=== PATIENT | female | born 1955 | race Caucasian/White ===

== ENCOUNTER → 2017-03-10 | Outpatient (CLI) | payer MEDICARE, MEDICAID ==
[~2017-03-10] MED LIST: CLON0.5T; CYAN100L; CYANOCOBALAMIN (B-12) 1000 MCG/1 ML VIAL IM ONE; CYANOCOBALAMIN (B-12) 1000 MCG/1 ML VIAL ONE; FENT100D11; FURO20TA; LISI-275; MET25T OR; POTA8CAP6; SERT-138
[2017-03-10 09:30] VITALS: BP 103/55
[2017-03-10 10:00] VITALS: BP 98/53
== END | disposition home or self-care (01) ==
LOC: CHF HDHVI 09:19
PROVIDERS: ATTEND Internal Medicine Cardiovascular Disease
DX: I50.9 Heart failure, unspecified (principal); I27.0 Primary pulmonary hypertension; D64.9 Anemia, unspecified
CPT/HCPCS: 96372; G0463; J3420

== ENCOUNTER → 2018-02-19 | Outpatient (CLI) | payer MEDICAID, MEDICARE ==
[~2018-02-19] MED LIST changes: -CYANOCOBALAMIN (B-12) 1000 MCG/1 ML VIAL IM ONE; -CYANOCOBALAMIN (B-12) 1000 MCG/1 ML VIAL ONE
== END | disposition home or self-care (01) ==
LOC: Rad HDHVI 11:08
PROVIDERS: ATTEND Internal Medicine Cardiovascular Disease
DX: J44.9 Chronic obstructive pulmonary disease, unspecified (principal)
CPT/HCPCS: 71046

== ENCOUNTER → 2018-03-30 | Outpatient (CLI) | payer MEDICARE ==
[2018-03-30 14:15] VITALS: BP 148/58
[2018-03-30 15:45] VITALS: BP 126/51
[2018-03-31 12:02] LABS: Basophils # (auto) 0.1 uL; Basophils % (auto) 0.9 % (0.0-2.0); Eosinophils # (auto) 0.1 uL; Eosinophils % (auto) 0.9 % (0.0-7.0); Lymphocytes # (auto) 2.4 uL; Lymphocytes % (auto) 19.3 % (10.0-50.0); Mean Corpuscular Hemoglobin 30.6 pg (28.0-32.0); Mean Corpuscular Hgb Conc. 33.2 g/dL (32.0-36.0); Mean Corpuscular Volume 92.1 fL (80.0-100.0); Monocytes # (auto) 0.8 uL; Monocytes % (auto) 6.2 % (0.0-12.0); Neutrophils # (auto) 9.2 uL; Neutrophils % (auto) 72.7 % (37.0-80.0); Nucleated Red Blood Cells % 0.1 %; Platelet Count (auto) 293 10^3/uL (140-450); Red Blood Cells 3.92 10^6/uL (4.0-5.20); Red Cell Distribution Width 12.3 % (11.8-14.3); White Blood Cell 12.6 10^3/uL (4.4-10.8)
[2018-03-31 12:38] LABS: Albumin 3.4 g/dL (3.4-5.0); BUN/Creatinine Ratio 16.7; Bilirubin, Total 0.2 mg/dL (0.2-1.0); Calcium 9.8 mg/dL (8.5-10.1); Magnesium 2.2 mg/dL (1.6-2.6); Potassium 4.3 mmol/L (3.5-5.1); Total Protein 7.4 g/dL (6.4-8.2)
== END | disposition home or self-care (01) ==
LOC: CHF HDHVI 14:25
PROVIDERS: ATTEND Internal Medicine Cardiovascular Disease
DX: E78.5 Hyperlipidemia, unspecified (principal); D64.9 Anemia, unspecified; E11.9 Type 2 diabetes mellitus without complications; I10 Essential (primary) hypertension; E55.9 Vitamin D deficiency, unspecified; D51.9 Vitamin B12 deficiency anemia, unspecified; J44.9 Chronic obstructive pulmonary disease, unspecified; Z79.899 Other long term (current) drug therapy
CPT/HCPCS: 36415; 80053; 82306; 82607; 83036; 83735; 85025; 93701; 94618; G0463

== ENCOUNTER 2018-09-17 18:42 | Emergency (ER) | payer MEDICARE ==
[~2018-09-17] VITALS: Ht 154.9 cm; Wt 77.1 kg
[2018-09-17 18:52] VITALS: BP 120/51
[2018-09-18] MEDS ORDERED: DEXAMETHASONE SOD PHOS 10MG/1ML VIAL INJ IM ONE (00:45)
[2018-09-18] MEDS ORDERED: MEPERIDINE HCL (50 MG/ML) 1 ML VIAL IM ONE ×2 (00:45)
== END 2018-09-18 01:22 | disposition home or self-care (01) ==
LOC: EDBD 18:42 → ER 18:56
DX: M22.3X2 Other derangements of patella, left knee (principal); M13.811 Other specified arthritis, right shoulder; J44.9 Chronic obstructive pulmonary disease, unspecified; F17.210 Nicotine dependence, cigarettes, uncomplicated; Z88.8 Allergy status to other drugs, medicaments and biological substances; Z88.0 Allergy status to penicillin; Z88.2 Allergy status to sulfonamides; Z88.7 Allergy status to serum and vaccine; Z79.899 Other long term (current) drug therapy; Z90.49 Acquired absence of other specified parts of digestive tract; W01.0XXA Fall on same level from slipping, tripping and stumbling without subsequent striking against object, initial encounter; Y93.89 Activity, other specified; Y99.8 Other external cause status; Y92.89 Other specified places as the place of occurrence of the external cause
CPT/HCPCS: 73030; 73562; 96372; 99284; J1100; J2175; L3260

== ENCOUNTER → 2018-10-19 | Outpatient (CLI) | payer MEDICARE | END | disposition home or self-care (01) | LOC: Rad HDHVI 12:22 | PROVIDERS: ATTEND Internal Medicine Cardiovascular Disease | DX: M47.894 Other spondylosis, thoracic region (principal); M40.294 Other kyphosis, thoracic region; M12.88 Other specific arthropathies, not elsewhere classified, other specified site | CPT/HCPCS: 72040; 72070 ==

== ENCOUNTER 2018-12-10 16:13 | Inpatient (IN) | payer MEDICARE ==
[~2018-12-10] VITALS: Ht 152.4 cm; Wt 88.2 kg
[2018-12-10] MEDS ORDERED: SODIUM CHLORIDE 0.9% 500 ML IV ONE (16:35)
[2018-12-10] MEDS ORDERED: MORPHINE SULFATE 4 MG/ML SYR/VIAL IV ONE ×2 (16:45→20:45)
[2018-12-10] MEDS ORDERED: ONDANSETRON HCL 4 MG/2 ML VIAL IV ONE ×2 (16:45→20:45)
[2018-12-10] MEDS ORDERED: KETOROLAC TROMETH 30 MG/ML 1ML VIAL IV ONE (17:30)
[2018-12-10 17:56] LABS: Basophils # (auto) 0.1 uL; Basophils % (auto) 0.9 % (0.0-2.0); Eosinophils # (auto) 0.1 uL; Hematocrit 35.5 % (36.0-46.0); Hemoglobin 11.5 g/dL (12.2-16.2); Lymphocytes # (auto) 2.3 uL; Lymphocytes % (auto) 18.3 % (10.0-50.0); Mean Corpuscular Hemoglobin 29.2 pg (28.0-32.0); Mean Corpuscular Hgb Conc. 32.5 g/dL (32.0-36.0); Mean Corpuscular Volume 89.9 fL (80.0-100.0); Monocytes # (auto) 0.8 uL; Monocytes % (auto) 6.4 % (0.0-12.0); Neutrophils # (auto) 9.3 uL; Neutrophils % (auto) 73.4 % (37.0-80.0); Platelet Count (auto) 286 10^3/uL (140-450); Red Blood Cells 3.95 10^6/uL (4.0-5.20); Red Cell Distribution Width 13.1 % (11.8-14.3); White Blood Cell 12.7 10^3/uL (4.4-10.8)
[2018-12-10 18:14] LABS: Alanine Aminotransferase 19 U/L (13-56); Albumin 2.6 g/dL (3.4-5.0); Anion Gap 9 (5-15); Aspartate Aminotransferase 12 U/L (15-37); BUN/Creatinine Ratio 24.1; Blood Urea Nitrogen 35 mg/dL (7-18); Calcium 7.7 mg/dL (8.5-10.1); Carbon Dioxide 23 mmol/L (21-32); Chloride 99 mmol/L (98-107); GFR African American 47 mL/min; GFR Non-African American 39 mL/min; Magnesium 2.2 mg/dL (1.6-2.6); Potassium 4.4 mmol/L (3.5-5.1); Sodium 131 mmol/L (136-145)
[2018-12-10 18:19] LABS: Alkaline Phosphatase 105 U/L (45-117); Bilirubin, Total 0.2 mg/dL (0.2-1.0); Total Protein 6.4 g/dL (6.4-8.2)
[2018-12-10 18:26] LABS: Glucose 492 mg/dL (74-106)
[2018-12-10] MEDS ORDERED: MORPHINE SULFATE 4 MG/ML SYR/VIAL IV PRN (20:45)
[2018-12-10] MEDS ORDERED: ACETAMINOPHEN 325 MG TAB PO PRN (20:45)
[2018-12-10] MEDS ORDERED: ONDANSETRON HCL 4 MG/2 ML VIAL IV PRN (20:45)
[2018-12-10] MEDS ORDERED: DEXTROSE (50%) 50ML SYRG IV PRN (20:45)
[2018-12-10 21:11] LABS: Urine Bacteria NONE SEEN /hpf (None Seen); Urine Blood Negative /uL (Negative); Urine Specific Gravity 1.014 (1.001-1.035); Urine WBC 1 /hpf (0 - 5)
[2018-12-10] MEDS: SODIUM CHLORIDE 0.9% 1,000 ML IV SCH (21:33)
[2018-12-10] MEDS: METOPROLOL TARTRATE 50 MG TAB PO SCH (22:42)
[2018-12-10] MEDS: TOPIRAMATE 25 MG TAB PO SCH (22:43)
[2018-12-10] MEDS: HYDROcodone-ACET 5/325MG TAB PO PRN (22:45)
[2018-12-10 23:00] VITALS: BP 134/69
[2018-12-10] MEDS: ACCU-CHEK COMFORT CURVE STRIP VI SCH (23:29)
[2018-12-10] MEDS: InsuLIN REG 1unit/0.01ml Soln (100units/ml) SC SCH (23:42)
--- NOTE | 2018-12-10 23:47 | NUR ---
received patient from the ed at 1120 for uncontrolled diabetes. blood sugar acu-check resulted in a blood sugar level of 485. a recheck of sugar resulted in 503. 10 units of insulin given and hospital list paged for orders
[2018-12-11 00:06] VITALS: BP 134/69
--- NOTE | 2018-12-11 00:45 | NUR ---
HOSPITAL LIST RESPONDED TO EARLIER PAGE FOR CRITICAL VALUE OF GLUCOSE LEVEL WITH THE STATEMENT TO FOLLOW THE PROTOCOL WHICH INCLUDED INFORMING HIM OF BLOOD SUGAR RESULTS. NO KNEW ORDERS GIVEN
[2018-12-11] MEDS ORDERED: MORP15TA PO (01:57)
[2018-12-11] MEDS ORDERED: GABA300C10 PO (01:57)
[2018-12-11] MEDS ORDERED: ENA10T PO (01:57)
[2018-12-11] MEDS: HYDROcodone-ACET 5/325MG TAB PO PRN ×4 (02:45→20:23)
[2018-12-11] MEDS ORDERED: ALBUAER3 IN (02:49)
[2018-12-11] MEDS: TEMAZEPAM 15 MG CAP PO PRN (02:57)
[2018-12-11] MEDS: ACCU-CHEK COMFORT CURVE STRIP VI SCH ×5 (04:15→20:37)
[2018-12-11] MEDS: InsuLIN REG 1unit/0.01ml Soln (100units/ml) SC SCH ×5 (04:16→20:45)
[2018-12-11 05:00] VITALS: BP 93/52
[2018-12-11 06:30] LABS: Basophils # (auto) 0.1 uL; Basophils % (auto) 0.7 % (0.0-2.0); Eosinophils # (auto) 0.2 uL; Eosinophils % (auto) 1.8 % (0.0-7.0); Hematocrit 34.1 % (36.0-46.0); Hemoglobin 11.6 g/dL (12.2-16.2); Lymphocytes # (auto) 2.5 uL; Lymphocytes % (auto) 28.9 % (10.0-50.0); Mean Corpuscular Hemoglobin 30.5 pg (28.0-32.0); Mean Corpuscular Hgb Conc. 33.9 g/dL (32.0-36.0); Mean Corpuscular Volume 90.1 fL (80.0-100.0); Monocytes # (auto) 0.8 uL; Monocytes % (auto) 9.2 % (0.0-12.0); Neutrophils # (auto) 5.2 uL; Neutrophils % (auto) 59.4 % (37.0-80.0); Platelet Count (auto) 257 10^3/uL (140-450); Red Blood Cells 3.78 10^6/uL (4.0-5.20); Red Cell Distribution Width 13.2 % (11.8-14.3); White Blood Cell 8.7 10^3/uL (4.4-10.8)
[2018-12-11 06:50] LABS: Potassium 3.9 mmol/L (3.5-5.1)
[2018-12-11] MEDS: SODIUM CHLORIDE 0.9% 1,000 ML IV SCH ×2 (07:00→14:45)
[2018-12-11 07:06] LABS: Albumin 2.4 g/dL (3.4-5.0); BUN/Creatinine Ratio 26.4; Bilirubin, Total 0.3 mg/dL (0.2-1.0); Calcium 8.1 mg/dL (8.5-10.1); Total Protein 5.8 g/dL (6.4-8.2)
[2018-12-11] MEDS ORDERED: INFLUENZA QUAD 2018-2019 0.5 ML SYRG IM ONE (07:15)
[2018-12-11] MEDS ORDERED: PNEUMOCOCCAL VACC POLYS 25 MCG/0.5 ML VIAL IM ONE (07:15)
--- NOTE | 2018-12-11 07:40 | NUR ---
Opening Shift Note Assumed care of patient, awake and alert. No S/S of distress/SOB or pain. Instructed on POC and to call for assist PRN, will continue to monitor for changes Q1hr and PRN.
[2018-12-11 08:00] VITALS: BP 98/53
[2018-12-11] MEDS ORDERED: LISINOPRIL 5 MG TAB PO SCH (10:00)
[2018-12-11] MEDS: METOPROLOL TARTRATE 50 MG TAB PO SCH (10:00)
[2018-12-11] MEDS ORDERED: FUROSEMIDE 20 MG TAB PO SCH (10:00)
[2018-12-11] MEDS: PANTOPRAZOLE 40 MG TAB PO SCH (10:41)
[2018-12-11] MEDS: TOPIRAMATE 25 MG TAB PO SCH ×2 (10:43→22:33)
[2018-12-11 13:00] VITALS: BP 87/52
--- NOTE | 2018-12-11 13:00 | NUR ---
Patients BP is 87/52, patient is asymptomatic. Patient is laying down in bed, legs elevated and call light within reach. Will continue to monitor.
--- NOTE | 2018-12-11 13:28 | NUR ---
Re-checked Bp, 122/77, no s/s of distress will continue to monitor as needed. Call light at bed side and bed at lowest position.
[2018-12-11] MEDS ORDERED: MULTIPLE VITAMINS W/ MINERALS TAB PO ONE (14:45)
[2018-12-11] MEDS ORDERED: THIAMINE HCL 100 MG TAB PO ONE (14:45)
[2018-12-11] MEDS ORDERED: DOCUSATE SOD 100 MG CAP PO PRN (14:45)
[2018-12-11] MEDS ORDERED: DEXTROSE (50%) 50ML SYRG IV PRN (14:45)
[2018-12-11 17:16] VITALS: BP 120/60
--- NOTE | 2018-12-11 18:55 | NUR ---
End of shift note: Patient is resting comfortably in bed, no s/s of distress noted or stated. Will endorse care to NOC RN.
[2018-12-11 21:36] VITALS: BP 146/75
[2018-12-11] MEDS: GABAPENTIN 300 MG CAP PO SCH (22:32)
[2018-12-11] MEDS: INSULIN LANTUS (GLARGINE) 1 /0.01ml (100units/ml) SC SCH (22:33)
[2018-12-12] MEDS: ACCU-CHEK COMFORT CURVE STRIP VI SCH ×6 (00:09→20:06)
[2018-12-12] MEDS: InsuLIN REG 1unit/0.01ml Soln (100units/ml) SC SCH ×7 (00:12→20:11)
[2018-12-12] MEDS: HYDROcodone-ACET 5/325MG TAB PO PRN ×4 (01:24→20:12)
[2018-12-12] MEDS: TEMAZEPAM 15 MG CAP PO PRN (01:24)
--- NOTE | 2018-12-12 01:30 | NUR ---
PATIENT ASSISTED TO THE BEDSIDE COMMODE AND PINCHED SKIN ON THE LEFT POSTERIOR THIGH. SKIN TEAR NOTED AFTER THE INCIDENT. PHOTOS TAKEN AND WOUND CARE CONSULT ORDERED PER PROTOCOL. CARE CONTINUED.
[2018-12-12] MEDS: SODIUM CHLORIDE 0.9% 1,000 ML IV SCH ×2 (02:03→19:49)
[2018-12-12 05:00] VITALS: BP 126/74
[2018-12-12] MEDS: GABAPENTIN 300 MG CAP PO SCH ×3 (06:07→22:48)
[2018-12-12 06:46] LABS: Calcium 8.5 mg/dL (8.5-10.1); Potassium 4.1 mmol/L (3.5-5.1)
[2018-12-12 06:49] LABS: BUN/Creatinine Ratio 26.4
[2018-12-12 08:46] VITALS: BP 133/75
[2018-12-12] MEDS: CYANOCOBALAMIN 500 MCG TAB PO SCH (10:29)
[2018-12-12] MEDS: THIAMINE HCL 100 MG TAB PO SCH (10:29)
[2018-12-12] MEDS: PANTOPRAZOLE 40 MG TAB PO SCH (10:29)
[2018-12-12] MEDS: TOPIRAMATE 25 MG TAB PO SCH ×2 (10:29→22:48)
[2018-12-12] MEDS: MULTIPLE VITAMINS W/ MINERALS TAB PO SCH (10:29)
[2018-12-12] MEDS: SERTRALINE HCL 50 MG TAB PO SCH (10:30)
--- NOTE | 2018-12-12 11:37 | NUR ---
Nutrition consult/assessment Notes Please see attached link for complete assessment Est. Needs ABW [id number] kcal (20-23 kcal/kgBW), 66-79 gms pro (1.0-1.2 gms/kgBW r/t wounds). Will continue to monitor pertinent labs and reassess nutrient need prn Addendum: 12/12/18 at [address] Amended: Links added.
--- NOTE | 2018-12-12 12:15 | NUR ---
WOUND CARE NOTE: PATIENT RECENTLY OBTAINED SKIN TEARS TO [facility]ILATERAL [facility]S [facility] [place] BEDSIDE NURSE OBTAINED PHOTOS AT TIME OF OCCURRENCE. PATIENT HAS TWO 1 X 1 CM PARTIAL THICKNESS SKIN TEAR TO BILATERAL BUTTOCKS. THERE IS NO SKIN FLAPS NOTED. PERIWOUND SKIN IS BRIGHT RED AND PINK, WOUND BED IS PALE RED. NO OTHER SKIN INTEGRITY ISSUES NOTED. RECOMMEND: EOD/PRN DRESSING CHANGE WITH THERAHONEY AND OPTIFOAM GENTLE DRESSINGS, DIETARY CONSULT (ALREADY FOLLOWING), CONTINUED MONITORING BY WOUND CARE TEAM. OF NOTE: JULES SCORE IS 17. IMPLEMENTED SKIN/WOUND CARE PLAN FOR WOUNDS AND LOW JULES SCORES BELOW 19. Addendum: 12/12/18 at 1634 by Jeannie Huynh RN Amended: Links added.
[2018-12-12 12:52] VITALS: BP 130/67
[2018-12-12 17:20] VITALS: BP 157/71
[2018-12-12 22:00] VITALS: BP 150/71
[2018-12-12] MEDS: INSULIN LANTUS (GLARGINE) 1 /0.01ml (100units/ml) SC SCH (22:50)
[2018-12-13] MEDS: TEMAZEPAM 15 MG CAP PO PRN (00:15)
[2018-12-13] MEDS: HYDROcodone-ACET 5/325MG TAB PO PRN ×2 (00:15→06:15)
[2018-12-13] MEDS: ACCU-CHEK COMFORT CURVE STRIP VI SCH ×6 (00:28→21:20)
[2018-12-13] MEDS: InsuLIN REG 1unit/0.01ml Soln (100units/ml) SC SCH ×6 (00:29→21:27)
[2018-12-13 05:00] VITALS: BP 114/65
[2018-12-13] MEDS: GABAPENTIN 300 MG CAP PO SCH ×3 (06:06→22:35)
[2018-12-13] MEDS: SODIUM CHLORIDE 0.9% 1,000 ML IV SCH ×2 (06:14→16:45)
--- NOTE | 2018-12-13 07:20 | NUR ---
OPENING SHIFT NOTE ASSUMED CARE OF PATIENT FROM RADIO TIME SALESPERSON RN LAURA. PATIENT IS AWAKE AND ALERT X4. PATIENT HAS NO S/S OF DISTRESS/SOB OR PAIN. INSTRUCTED PATIENT ON POC, PATIENT VERBALIZED UNDERSTANDING. BED IS IN LOWEST POSITION WITH SIDE RAILS RAISED X2, BED WHEELS LOCKED, BED SIDE COMMODE AND CALL LIGHT ARE WITHIN REACH. WILL CONTINUE TO MONITOR
[2018-12-13 08:50] VITALS: BP 113/70
[2018-12-13] MEDS: MORPHINE SULFATE 4 MG/ML SYR/VIAL IV PRN ×2 (09:15→15:40)
[2018-12-13] MEDS: CYANOCOBALAMIN 500 MCG TAB PO SCH (09:58)
[2018-12-13] MEDS: MULTIPLE VITAMINS W/ MINERALS TAB PO SCH (09:58)
[2018-12-13] MEDS: THIAMINE HCL 100 MG TAB PO SCH (09:58)
[2018-12-13] MEDS: TOPIRAMATE 25 MG TAB PO SCH ×2 (09:59→22:36)
[2018-12-13] MEDS: SERTRALINE HCL 50 MG TAB PO SCH (09:59)
[2018-12-13] MEDS: PANTOPRAZOLE 40 MG TAB PO SCH (09:59)
--- NOTE | 2018-12-13 10:00 | NUR ---
PT AT BEDSIDE. AMBULATING PATIENT. PATIENT HAS NO S/S OF DISTRESS/SOB OR PAIN AT THIS TIME
[2018-12-13 13:02] VITALS: BP 128/71
[2018-12-13 17:00] VITALS: BP 135/67
--- NOTE | 2018-12-13 19:00 | NUR ---
opening note Assumed care of patient. patient is A&OX4. No signs of distress. Bed is at lowest position, call light is in reach.
--- NOTE | 2018-12-13 19:15 | NUR ---
CLOSING SHIFT NOTE ENDORSED CARE TO LABORATORY TECHNICIAN ALEXIS NAVARRO. PATIENT HAS NO S/S OF DISTRESS/SOB OR PAIN AT THIS TIME
[2018-12-13 22:00] VITALS: BP 155/85
[2018-12-13] MEDS: INSULIN LANTUS (GLARGINE) 1 /0.01ml (100units/ml) SC SCH (22:36)
[2018-12-14] MEDS: ACCU-CHEK COMFORT CURVE STRIP VI SCH ×5 (00:19→16:00)
[2018-12-14] MEDS: InsuLIN REG 1unit/0.01ml Soln (100units/ml) SC SCH ×5 (00:19→16:57)
[2018-12-14] MEDS: TEMAZEPAM 15 MG CAP PO PRN (00:20)
[2018-12-14] MEDS: HYDROcodone-ACET 5/325MG TAB PO PRN ×3 (05:16→16:58)
[2018-12-14] MEDS: SODIUM CHLORIDE 0.9% 1,000 ML IV SCH ×2 (05:20→14:31)
[2018-12-14 05:23] VITALS: BP 161/74
[2018-12-14] MEDS: GABAPENTIN 300 MG CAP PO SCH ×2 (06:23→14:32)
--- NOTE | 2018-12-14 07:20 | NUR ---
Report received and bedside handoff completed. Patient observed resting in bed without S/S of distress noted. Patient oriented to this RN and POC discussed. Patient requested home medications reviewed as she does not believe she has been receiving her heart medications. Will review and speak with Dr. Lackey about the medications she is currently not on. Patient has call saavedra if needing assistance, and understands to call if needing anything.
[2018-12-14 07:56] VITALS: BP 143/77
[2018-12-14] MEDS: MORPHINE SULFATE 4 MG/ML SYR/VIAL IV PRN ×2 (09:09→12:49)
[2018-12-14] MEDS: THIAMINE HCL 100 MG TAB PO SCH (10:29)
[2018-12-14] MEDS: MULTIPLE VITAMINS W/ MINERALS TAB PO SCH (10:29)
[2018-12-14] MEDS: TOPIRAMATE 25 MG TAB PO SCH (10:29)
[2018-12-14] MEDS: PANTOPRAZOLE 40 MG TAB PO SCH (10:29)
[2018-12-14] MEDS: SERTRALINE HCL 50 MG TAB PO SCH (10:30)
[2018-12-14] MEDS: CYANOCOBALAMIN 500 MCG TAB PO SCH (10:30)
--- NOTE | 2018-12-14 10:40 | NUR ---
messaged Dr. Lackey messaged to obtain order to restart home medications and breathing treatments. MD responded yes to start.
[2018-12-14] MEDS ORDERED: FURO40TA PO (10:41)
[2018-12-14] MEDS ORDERED: LUBI24CA6 PO (10:44)
[2018-12-14] MEDS ORDERED: RIOC1TAB9 PO (10:44)
[2018-12-14] MEDS ORDERED: MORPHINE SULF 15mg ER tab PO PRN (11:30)
[2018-12-14] MEDS ORDERED: ALBUTEROL SULF 2.5 MG/0.5ML(0.5%) NEB SOLN NEB PRN (11:30)
[2018-12-14 11:44] VITALS: BP 137/62
[2018-12-14] MEDS ORDERED: MORPHINE SULF 15mg ER tab PO SCH (14:00)
--- NOTE | 2018-12-14 15:15 | NUR ---
Rounds Patient reported on rounds that MD came by and discussed that she could be discharged this afternoon. No discharge orders noted or prescriptions on chart. Message sent to Dr. Lackey.
--- NOTE | 2018-12-14 16:00 | NUR ---
yet to respond Dr. Lackey has not responded to discharging patient this afternoon. Message left at his office at this time due to no answer.
[2018-12-14 16:20] VITALS: BP 151/67
--- NOTE | 2018-12-14 17:37 | NUR ---
Called in prescriptions Metformin and Pina called into [facility] on [address], [place], [place].
[2018-12-14 18:06] VITALS: BP 133/85
--- NOTE | 2018-12-14 18:40 | NUR ---
Discharge Discharge instructions reviewed with patient. All wounds photographed for discharge. Iv discontinued without complication. Patient wheeled downstairs with tech and mother at side. All questions and concerns addressed.
[2018-12-14] MEDS ORDERED: SILDENAFIL CITRATE 20 MG TAB PO SCH (20:00)
[2018-12-14] MEDS ORDERED: METOPROLOL TARTRATE 50 MG TAB PO SCH (22:00)
[2018-12-15] MEDS ORDERED: ENALAPRIL MALEATE 10 MG TAB PO SCH (10:00)
[2018-12-15] MEDS ORDERED: FUROSEMIDE 40 MG TAB PO SCH (10:00)
[2018-12-15] MEDS ORDERED: AMITIZA PO SCH (10:00)
== END 2018-12-14 18:45 | disposition home or self-care (01) | DRG 637 ==
LOC: EDBD 16:13 → ER 16:17 → OVERFLOW 21:29 → TELE-WESTW 23:10 → WEST WING 23:53
PROVIDERS: ADMIT Nurse Practitioner; ATTEND Internal Medicine Cardiovascular Disease
DX: E11.65 Type 2 diabetes mellitus with hyperglycemia (principal); N17.0 Acute kidney failure with tubular necrosis; E87.0 Hyperosmolality and hypernatremia; I13.0 Hypertensive heart and chronic kidney disease with heart failure and stage 1 through stage 4 chronic kidney disease, or unspecified chronic kidney disease; I50.32 Chronic diastolic (congestive) heart failure; D64.9 Anemia, unspecified; E86.0 Dehydration; N18.3 Chronic kidney disease, stage 3 (moderate); J44.9 Chronic obstructive pulmonary disease, unspecified; W18.39XA Other fall on same level, initial encounter; E86.1 Hypovolemia; M48.061 Spinal stenosis, lumbar region without neurogenic claudication; M53.82 Other specified dorsopathies, cervical region; I67.2 Cerebral atherosclerosis; F17.210 Nicotine dependence, cigarettes, uncomplicated; E11.22 Type 2 diabetes mellitus with diabetic chronic kidney disease; E66.9 Obesity, unspecified; G89.29 Other chronic pain; I27.20 Pulmonary hypertension, unspecified; Y93.89 Activity, other specified; Y92.098 Other place in other non-institutional residence as the place of occurrence of the external cause; Y99.8 Other external cause status; Z90.89 Acquired absence of other organs; Z90.49 Acquired absence of other specified parts of digestive tract; Z88.0 Allergy status to penicillin; Z88.2 Allergy status to sulfonamides; Z88.8 Allergy status to other drugs, medicaments and biological substances; Z68.38 Body mass index [BMI] 38.0-38.9, adult
CPT/HCPCS: 36415; 70450; 72125; 72131; 76775; 80048; 80053; 81001; 82962; 83036; 83735; 84443; 84484; 85025; 90674; 93005; 94640; 94761; 96365; 96366; 96375; 97116; 97163; 97530; A6257; G0378; J1815; J1885; J2405

== ENCOUNTER 2019-01-21 21:04 | Inpatient (IN) | payer MEDICARE, OTHER | END 2019-01-30 17:48 | disposition home or self-care (01) | LOC: TELE 01-22 02:55 → TELE-CENTR 01-28 06:45 → ER 21:04 | DX: A41.9 Sepsis, unspecified organism (principal); N17.0 Acute kidney failure with tubular necrosis; E43 Unspecified severe protein-calorie malnutrition; G93.41 Metabolic encephalopathy; N39.0 Urinary tract infection, site not specified; I11.0 Hypertensive heart disease with heart failure; I50.9 Heart failure, unspecified; J44.9 Chronic obstructive pulmonary disease, unspecified; E11.9 Type 2 diabetes mellitus without complications; I27.20 Pulmonary hypertension, unspecified; Z68.30 Body mass index [BMI] 30.0-30.9, adult; E55.9 Vitamin D deficiency, unspecified; D64.9 Anemia, unspecified ==

== ENCOUNTER → 2019-04-27 | Outpatient (CLI) | payer MEDICARE, OTHER ==
[~2019-04-27] MED LIST changes: +ALBUAER3 IN; -CLON0.5T; +ENA10T PO; -FENT100D11; -FURO20TA; +FURO40TA PO; +GABA300C10 PO; -LISI-275; +LUBI24CA6 PO; +METF-370 PO; +MORP15TA PO; +RIOC1TAB9 PO
== END | disposition home or self-care (01) ==
LOC: Rad HDHVI 15:02
PROVIDERS: ATTEND Internal Medicine Cardiovascular Disease
DX: K57.90 Diverticulosis of intestine, part unspecified, without perforation or abscess without bleeding (principal); I70.0 Atherosclerosis of aorta; N20.0 Calculus of kidney; Z90.49 Acquired absence of other specified parts of digestive tract
CPT/HCPCS: 74176

== ENCOUNTER → 2019-09-28 | Outpatient (CLI) | payer MEDICARE, OTHER ==
[~2019-09-28] MED LIST changes: -ENA10T PO; +ENAL10TA PO; +FURO1TAB31 PO; -FURO40TA PO; -SERT-138; +SERT50TA
== END | disposition home or self-care (01) ==
LOC: Rad HDHVI 15:02
PROVIDERS: ATTEND Internal Medicine Cardiovascular Disease
DX: I25.10 Atherosclerotic heart disease of native coronary artery without angina pectoris (principal); J44.1 Chronic obstructive pulmonary disease with (acute) exacerbation; I50.22 Chronic systolic (congestive) heart failure
CPT/HCPCS: 93306

== ENCOUNTER 2021-03-29 21:39 | Emergency (ER) | payer MEDICARE, OTHER ==
[~2021-03-29] VITALS: Ht 165.1 cm; Wt 77.1 kg
[~2021-03-29 21:39] MED LIST changes: -ENAL10TA PO; +ENAL10TA12 PO; +RIOC1TAB15 PO; -RIOC1TAB9 PO
[2021-03-29] MEDS ORDERED: KETOROLAC TROMETH 30 MG/ML 1ML VIAL IV ONE (22:15)
[2021-03-29] MEDS ORDERED: diphenhdrAMINE HCL 50 MG/1 ML VL IV ONE (22:15)
[2021-03-29] MEDS ORDERED: METOCLOPRAMIDE HCL 5MG/ml INJ 2ml VIAL IV ONE (22:15)
[2021-03-29] MEDS ORDERED: SODIUM CHLORIDE 0.9% 1,000 ML IV ONE (22:15)
[2021-03-29] MEDS ORDERED: hydrALAZINE HCL 20 MG/ML VL IV ONE (22:15)
[2021-03-29 22:36] LABS: Basophils # (auto) 0 10 ^3/uL (0-0.2); Basophils % (auto) 0.2 % (0.0-2.0); Eosinophils # (auto) 0 10 ^3/uL (0-0.8); Eosinophils % (auto) 0.1 % (0.0-7.0); Hematocrit 45.5 % (36.0-46.0); Hemoglobin 15.6 g/dL (12.2-16.2); Lymphocytes # (auto) 1.2 10 ^3/uL (0.4-5.4); Lymphocytes % (auto) 8.7 % (10.0-50.0); Mean Corpuscular Hemoglobin 32.1 pg (28.0-32.0); Mean Corpuscular Hgb Conc. 34.3 g/dL (32.0-36.0); Mean Corpuscular Volume 93.5 fL (80.0-100.0); Monocytes # (auto) 0.5 10 ^3/uL (0-1.3); Monocytes % (auto) 3.3 % (0.0-12.0); Neutrophils # (auto) 12.4 10 ^3/uL (1.6-8.6); Neutrophils % (auto) 87.7 % (37.0-80.0); Nucleated Red Blood Cells % 0.1 %; Red Blood Cells 4.87 10^6/uL (4.0-5.20); Red Cell Distribution Width 13.1 % (11.8-14.3); White Blood Cell 14.1 10^3/uL (4.4-10.8)
[2021-03-29 22:53] LABS: Alanine Aminotransferase 13 U/L (13-56); Albumin 3.4 g/dL (3.4-5.0); Anion Gap 6 (5-15); Aspartate Aminotransferase 9 U/L (15-37); BUN/Creatinine Ratio 14.6; Blood Urea Nitrogen 14 mg/dL (7-18); Calcium 9.8 mg/dL (8.5-10.1); Carbon Dioxide 29 mmol/L (21-32); Chloride 103 mmol/L (98-107); GFR African American 75 mL/min; GFR Non-African American 62 mL/min; Glucose 152 mg/dL (74-106); Potassium 3.8 mmol/L (3.5-5.1); Sodium 138 mmol/L (136-145)
[2021-03-29 22:55] LABS: INR 0.96 (0.9-1.15); Partial Thromboplastin Time 31.4 sec (23.0-31.2)
[2021-03-29 22:58] LABS: Alkaline Phosphatase 82 U/L (45-117); Bilirubin, Total 0.4 mg/dL (0.2-1.0); Total Protein 7.1 g/dL (6.4-8.2)
[2021-03-30 02:00] VITALS: BP 138/66
== END 2021-03-30 02:31 | disposition home or self-care (01) ==
LOC: EDBD 21:39 → ER 21:55
DX: G43.909 Migraine, unspecified, not intractable, without status migrainosus (principal); R11.2 Nausea with vomiting, unspecified; F41.9 Anxiety disorder, unspecified; J44.9 Chronic obstructive pulmonary disease, unspecified; F32.9 Major depressive disorder, single episode, unspecified; E11.9 Type 2 diabetes mellitus without complications; I11.0 Hypertensive heart disease with heart failure; I50.9 Heart failure, unspecified; Z90.89 Acquired absence of other organs; Z90.49 Acquired absence of other specified parts of digestive tract; Z87.891 Personal history of nicotine dependence
CPT/HCPCS: 36415; 80053; 83880; 84484; 85025; 85610; 85730; 93005; 96361; 96374; 96375; 99284; J0360; J1200; J1885; J2765; J7030

== ENCOUNTER 2021-03-31 19:20 | Emergency (ER) | payer MEDICARE ==
[~2021-03-31] VITALS: Ht 154.9 cm; Wt 63.5 kg
[2021-03-31] MEDS ORDERED: ASPirin 81 mg TAB ONE (19:36)
[2021-03-31] MEDS ORDERED: METOPROLOL TARTRATE 1MG/1ML-5ML VIAL IV ONE (19:45)
[2021-03-31] MEDS ORDERED: ASPirin 81 mg TAB PO ONE (19:45)
[2021-03-31 20:11] LABS: Basophils # (auto) 0.1 10 ^3/uL (0-0.2); Basophils % (auto) 0.9 % (0.0-2.0); Eosinophils # (auto) 0.1 10 ^3/uL (0-0.8); Eosinophils % (auto) 0.9 % (0.0-7.0); Hematocrit 45.2 % (36.0-46.0); Hemoglobin 15.7 g/dL (12.2-16.2); Lymphocytes # (auto) 1.8 10 ^3/uL (0.4-5.4); Lymphocytes % (auto) 14.9 % (10.0-50.0); Mean Corpuscular Hemoglobin 32.7 pg (28.0-32.0); Mean Corpuscular Hgb Conc. 34.6 g/dL (32.0-36.0); Mean Corpuscular Volume 94.3 fL (80.0-100.0); Monocytes # (auto) 0.8 10 ^3/uL (0-1.3); Monocytes % (auto) 6.5 % (0.0-12.0); Neutrophils # (auto) 9.5 10 ^3/uL (1.6-8.6); Neutrophils % (auto) 76.8 % (37.0-80.0); Platelet Count (auto) 310 10^3/uL (140-450); Red Blood Cells 4.79 10^6/uL (4.0-5.20); Red Cell Distribution Width 13.1 % (11.8-14.3); White Blood Cell 12.3 10^3/uL (4.4-10.8)
[2021-03-31] MEDS ORDERED: SODIUM CHLORIDE 0.9% 1,000 ML IV ONE (20:15)
[2021-03-31] MEDS ORDERED: METOCLOPRAMIDE HCL 5MG/ml INJ 2ml VIAL IV ONE (20:15)
[2021-03-31 20:26] LABS: INR 1.06 (0.9-1.15)
[2021-03-31 20:31] LABS: Albumin 3.5 g/dL (3.4-5.0); Anion Gap 5 (5-15); Blood Urea Nitrogen 18 mg/dL (7-18); Calcium 9.7 mg/dL (8.5-10.1); Carbon Dioxide 28 mmol/L (21-32); Chloride 105 mmol/L (98-107); Glucose 152 mg/dL (74-106); Magnesium 2.2 mg/dL (1.6-2.6); Potassium 3.9 mmol/L (3.5-5.1); Sodium 138 mmol/L (136-145)
[2021-03-31 20:37] LABS: Alanine Aminotransferase 11 U/L (13-56); Alkaline Phosphatase 81 U/L (45-117); Aspartate Aminotransferase 9 U/L (15-37); BUN/Creatinine Ratio 15.5; Bilirubin, Total 0.3 mg/dL (0.2-1.0); GFR African American 60 mL/min; GFR Non-African American 50 mL/min; Total Protein 7.3 g/dL (6.4-8.2)
[2021-03-31 21:01] VITALS: BP 152/58
== END 2021-03-31 22:24 | disposition home or self-care (01) ==
LOC: EDUNIT# 19:20 → EDBD 19:20 → ER 19:20
DX: R51.9 Headache, unspecified (principal); R07.89 Other chest pain; F17.210 Nicotine dependence, cigarettes, uncomplicated; E11.9 Type 2 diabetes mellitus without complications; I11.0 Hypertensive heart disease with heart failure; I50.9 Heart failure, unspecified; J44.9 Chronic obstructive pulmonary disease, unspecified; Z90.49 Acquired absence of other specified parts of digestive tract; Z90.89 Acquired absence of other organs
CPT/HCPCS: 36415; 70450; 71045; 80053; 82962; 83735; 83880; 84443; 84484; 85025; 85610; 85730; 93005; 96361; 96374; 96375; 99285; J2765; J7030

== ENCOUNTER 2021-04-02 04:04 | Inpatient (IN) | payer MEDICARE ==
[~2021-04-02] VITALS: Ht 154.9 cm; Wt 73.2 kg
[2021-04-02] MEDS ORDERED: hydrALAZINE HCL 20 MG/ML VL IV ONE (04:15)
[2021-04-02 05:23] LABS: Basophils # (auto) 0.2 10 ^3/uL (0-0.2); Basophils % (auto) 1.1 % (0.0-2.0); Eosinophils # (auto) 0.2 10 ^3/uL (0-0.8); Eosinophils % (auto) 1.3 % (0.0-7.0); Hematocrit 44.1 % (36.0-46.0); Hemoglobin 15.3 g/dL (12.2-16.2); Lymphocytes # (auto) 2.8 10 ^3/uL (0.4-5.4); Lymphocytes % (auto) 18.9 % (10.0-50.0); Mean Corpuscular Hemoglobin 32.8 pg (28.0-32.0); Mean Corpuscular Hgb Conc. 34.7 g/dL (32.0-36.0); Mean Corpuscular Volume 94.4 fL (80.0-100.0); Monocytes % (auto) 6.7 % (0.0-12.0); Neutrophils # (auto) 10.5 10 ^3/uL (1.6-8.6); Platelet Count (auto) 311 10^3/uL (140-450); Red Blood Cells 4.68 10^6/uL (4.0-5.20); Red Cell Distribution Width 13.5 % (11.8-14.3); White Blood Cell 14.6 10^3/uL (4.4-10.8)
[2021-04-02 05:39] LABS: Anion Gap 6 (5-15); Blood Urea Nitrogen 17 mg/dL (7-18); Calcium 9.7 mg/dL (8.5-10.1); Carbon Dioxide 27 mmol/L (21-32); Chloride 106 mmol/L (98-107); Glucose 141 mg/dL (74-106); Potassium 3.7 mmol/L (3.5-5.1); Sodium 139 mmol/L (136-145)
[2021-04-02 05:45] LABS: BUN/Creatinine Ratio 15.5; GFR African American 64 mL/min; GFR Non-African American 53 mL/min
[2021-04-02] MEDS ORDERED: ONDANSETRON HCL 4 MG/2 ML VIAL IV ONE ×2 (05:45→06:15)
[2021-04-02] MEDS ORDERED: LABETALOL HCL 5 MG/ML 4ML SYRINGE IV ONE (05:45)
[2021-04-02] MEDS ORDERED: HYDROmorphone HCL 2 MG/ML VL IV ONE (06:15)
[2021-04-02] MEDS ORDERED: MORPHINE SULF INJ 2 MG/ML SYRINGE 1ML IV PRN (08:15)
[2021-04-02] MEDS ORDERED: ALBUTEROL SULF HFA 90MCG INH 200DOSE IN PRN (08:15)
[2021-04-02] MEDS ORDERED: DEXTROSE (50%) 50ML SYRG IV ONE (08:15)
[2021-04-02] MEDS ORDERED: cloNIDine HCL 0.1 MG TAB PO ONE (08:45)
[2021-04-02 08:56] VITALS: BP 143/69
[2021-04-02] MEDS ORDERED: FUROSEMIDE 40 MG/4 ML VIAL IV ONE (09:15)
[2021-04-02] MEDS: ENALAPRIL MALEATE 10 MG TAB PO SCH ×2 (09:33→22:27)
[2021-04-02] MEDS: FAMOTIDINE 20 MG TAB PO SCH (09:33)
[2021-04-02] MEDS: SERTRALINE HCL 50 MG TAB PO SCH (09:33)
[2021-04-02] MEDS: METOPROLOL TARTRATE 25 MG TAB PO SCH ×2 (09:33→22:00)
[2021-04-02] MEDS ORDERED: InsuLIN REG 1unit/0.01ml Soln (100units/ml) SC ONE (11:30)
[2021-04-02] MEDS: HYDROcodone-ACET 5/325MG TAB PO PRN ×2 (11:41→21:00)
[2021-04-02] MEDS: ACCU-CHEK COMFORT CURVE STRIP VI SCH ×3 (11:55→22:25)
[2021-04-02 13:30] VITALS: BP 97/48
[2021-04-02] MEDS: GABAPENTIN 300 MG CAP PO SCH ×2 (13:54→22:24)
[2021-04-02] MEDS: KETOROLAC TROMETH 30 MG/ML 1ML VIAL IV PRN (13:54)
[2021-04-02 17:08] VITALS: BP 108/57
[2021-04-02] MEDS ORDERED: LEVALBUTEROL HCL 1.25 MG/3 ML NEB NEB SCH (20:00)
[2021-04-02] MEDS: IPRATROPIUM BROM 0.5 MG/2.5ML INH SOL NEB PRN (22:03)
[2021-04-03] MEDS: KETOROLAC TROMETH 30 MG/ML 1ML VIAL IV PRN (01:57)
[2021-04-03 05:00] VITALS: BP 139/70
[2021-04-03] MEDS: HYDROcodone-ACET 5/325MG TAB PO PRN ×4 (06:03→21:39)
[2021-04-03] MEDS: GABAPENTIN 300 MG CAP PO SCH ×3 (06:04→21:38)
[2021-04-03] MEDS: IPRATROPIUM BROM 0.5 MG/2.5ML INH SOL NEB PRN ×2 (06:27→22:35)
[2021-04-03] MEDS: LEVALBUTEROL HCL 1.25 MG/3 ML NEB NEB PRN ×2 (06:27→22:35)
[2021-04-03] MEDS: ACCU-CHEK COMFORT CURVE STRIP VI SCH ×4 (06:37→21:39)
[2021-04-03 06:42] LABS: Basophils # (auto) 0.1 10 ^3/uL (0-0.2); Basophils % (auto) 0.8 % (0.0-2.0); Eosinophils # (auto) 0.2 10 ^3/uL (0-0.8); Eosinophils % (auto) 1.4 % (0.0-7.0); Hematocrit 37.5 % (36.0-46.0); Hemoglobin 12.6 g/dL (12.2-16.2); Lymphocytes # (auto) 3.2 10 ^3/uL (0.4-5.4); Lymphocytes % (auto) 20.9 % (10.0-50.0); Mean Corpuscular Hemoglobin 31.9 pg (28.0-32.0); Mean Corpuscular Hgb Conc. 33.7 g/dL (32.0-36.0); Mean Corpuscular Volume 94.6 fL (80.0-100.0); Monocytes # (auto) 1.1 10 ^3/uL (0-1.3); Monocytes % (auto) 7.5 % (0.0-12.0); Neutrophils # (auto) 10.6 10 ^3/uL (1.6-8.6); Neutrophils % (auto) 69.4 % (37.0-80.0); Platelet Count (auto) 270 10^3/uL (140-450); Red Blood Cells 3.97 10^6/uL (4.0-5.20); Red Cell Distribution Width 13.1 % (11.8-14.3); White Blood Cell 15.3 10^3/uL (4.4-10.8)
[2021-04-03 06:56] LABS: Albumin 2.7 g/dL (3.4-5.0); BUN/Creatinine Ratio 16.6; Calcium 8.8 mg/dL (8.5-10.1); Potassium 4.1 mmol/L (3.5-5.1)
[2021-04-03 06:58] LABS: Bilirubin, Total 0.3 mg/dL (0.2-1.0); Total Protein 5.6 g/dL (6.4-8.2)
[2021-04-03] MEDS ORDERED: ADENOSINE 53 MG in GIVE UN-DILUTED 0 ML IV STA (08:33)
[2021-04-03 08:34] VITALS: BP 134/55
[2021-04-03 09:09] VITALS: BP 122/73
[2021-04-03] MEDS: METOPROLOL TARTRATE 25 MG TAB PO SCH (10:00)
[2021-04-03] MEDS: ONDANSETRON HCL 4 MG/2 ML VIAL IV PRN ×3 (10:27→21:38)
[2021-04-03] MEDS: ENALAPRIL MALEATE 10 MG TAB PO SCH ×2 (10:27→21:39)
[2021-04-03] MEDS: SERTRALINE HCL 50 MG TAB PO SCH (10:27)
[2021-04-03] MEDS: FAMOTIDINE 20 MG TAB PO SCH (10:27)
[2021-04-03] MEDS ORDERED: SODIUM CHLORIDE 0.9% 1,000 ML IV SCH (11:45)
[2021-04-03] MEDS ORDERED: levoFLOXacin 250MG 50 ML IV SCH (12:30)
[2021-04-03 12:34] VITALS: BP 120/65
[2021-04-03] MEDS ORDERED: levoFLOXacin 500MG 100 ML IV ONE (13:00)
[2021-04-03 17:00] VITALS: BP 140/69
[2021-04-03 17:23] LABS: Urine Bacteria NONE SEEN /hpf (None Seen); Urine Blood Negative /uL (Negative); Urine Specific Gravity 1.012 (1.001-1.035); Urine WBC 3 /hpf (0 - 5)
[2021-04-04] MEDS: TEMAZEPAM 15 MG CAP PO PRN (01:51)
[2021-04-04] MEDS: HYDROcodone-ACET 5/325MG TAB PO PRN ×3 (04:06→21:24)
[2021-04-04 05:00] VITALS: BP 142/70
[2021-04-04] MEDS: GABAPENTIN 300 MG CAP PO SCH ×3 (06:13→21:14)
[2021-04-04] MEDS: ACCU-CHEK COMFORT CURVE STRIP VI SCH ×4 (06:58→21:16)
[2021-04-04] MEDS: KETOROLAC TROMETH 30 MG/ML 1ML VIAL IV PRN ×2 (08:21→16:00)
[2021-04-04 08:37] VITALS: BP 143/66
[2021-04-04 09:09] LABS: Basophils # (auto) 0.1 10 ^3/uL (0-0.2); Basophils % (auto) 0.7 % (0.0-2.0); Eosinophils # (auto) 0.2 10 ^3/uL (0-0.8); Eosinophils % (auto) 1.9 % (0.0-7.0); Hematocrit 38.9 % (36.0-46.0); Hemoglobin 13.3 g/dL (12.2-16.2); Lymphocytes # (auto) 2.9 10 ^3/uL (0.4-5.4); Lymphocytes % (auto) 23.7 % (10.0-50.0); Mean Corpuscular Hemoglobin 32.4 pg (28.0-32.0); Mean Corpuscular Hgb Conc. 34.2 g/dL (32.0-36.0); Mean Corpuscular Volume 94.8 fL (80.0-100.0); Monocytes # (auto) 1.1 10 ^3/uL (0-1.3); Monocytes % (auto) 8.8 % (0.0-12.0); Neutrophils # (auto) 7.8 10 ^3/uL (1.6-8.6); Neutrophils % (auto) 64.9 % (37.0-80.0); Platelet Count (auto) 265 10^3/uL (140-450); Red Cell Distribution Width 13.1 % (11.8-14.3); White Blood Cell 12.1 10^3/uL (4.4-10.8)
[2021-04-04 09:26] LABS: Albumin 2.9 g/dL (3.4-5.0); Calcium 8.9 mg/dL (8.5-10.1); Magnesium 2.6 mg/dL (1.6-2.6); Potassium 4.1 mmol/L (3.5-5.1)
[2021-04-04 09:30] LABS: BUN/Creatinine Ratio 22.1; Bilirubin, Total 0.2 mg/dL (0.2-1.0)
[2021-04-04] MEDS: SERTRALINE HCL 50 MG TAB PO SCH (09:51)
[2021-04-04] MEDS: levoFLOXacin 250MG 50 ML IV SCH (09:51)
[2021-04-04] MEDS: FAMOTIDINE 20 MG TAB PO SCH (09:51)
[2021-04-04] MEDS: ENALAPRIL MALEATE 10 MG TAB PO SCH ×2 (09:52→21:14)
[2021-04-04 13:00] VITALS: BP 166/81
[2021-04-04 17:00] VITALS: BP 160/76
[2021-04-04] MEDS: MORPHINE SULF INJ 2 MG/ML SYRINGE 1ML IV PRN (19:59)
[2021-04-04] MEDS: LEVALBUTEROL HCL 1.25 MG/3 ML NEB NEB PRN (20:05)
[2021-04-04] MEDS: IPRATROPIUM BROM 0.5 MG/2.5ML INH SOL NEB PRN (20:05)
[2021-04-04 21:23] VITALS: BP 192/74
[2021-04-04] MEDS: hydrALAZINE HCL 20 MG/ML VL IV PRN (21:23)
[2021-04-05] VITALS (33 sets, daily range): BP systolic 92–227; BP diastolic 47–117
[2021-04-05] MEDS: KETOROLAC TROMETH 30 MG/ML 1ML VIAL IV PRN ×3 (03:56→20:39)
[2021-04-05] MEDS: IPRATROPIUM BROM 0.5 MG/2.5ML INH SOL NEB PRN (04:14)
[2021-04-05] MEDS: LEVALBUTEROL HCL 1.25 MG/3 ML NEB NEB PRN (04:14)
[2021-04-05] MEDS: MORPHINE SULF INJ 2 MG/ML SYRINGE 1ML IV PRN ×2 (04:44→18:00)
[2021-04-05] MEDS: GABAPENTIN 300 MG CAP PO SCH ×3 (05:55→21:38)
[2021-04-05] MEDS: ACCU-CHEK COMFORT CURVE STRIP VI SCH ×4 (06:27→21:38)
[2021-04-05] MEDS: SODIUM CHLORIDE 0.9% 1,000 ML IV SCH (07:30)
[2021-04-05] MEDS: HYDROcodone-ACET 5/325MG TAB PO PRN (07:31)
[2021-04-05] MEDS ORDERED: amLODIPine BESYLATE 5 MG TAB PO ONE ×2 (08:45→11:15)
[2021-04-05 09:29] LABS: Basophils # (auto) 0.1 10 ^3/uL (0-0.2); Basophils % (auto) 0.7 % (0.0-2.0); Eosinophils # (auto) 0.2 10 ^3/uL (0-0.8); Eosinophils % (auto) 1.5 % (0.0-7.0); Hematocrit 37.3 % (36.0-46.0); Hemoglobin 12.7 g/dL (12.2-16.2); Lymphocytes # (auto) 2.5 10 ^3/uL (0.4-5.4); Lymphocytes % (auto) 21.7 % (10.0-50.0); Mean Corpuscular Hemoglobin 32.3 pg (28.0-32.0); Mean Corpuscular Hgb Conc. 34.1 g/dL (32.0-36.0); Mean Corpuscular Volume 94.6 fL (80.0-100.0); Monocytes # (auto) 0.9 10 ^3/uL (0-1.3); Monocytes % (auto) 7.7 % (0.0-12.0); Neutrophils % (auto) 68.4 % (37.0-80.0); Nucleated Red Blood Cells % 0.1 %; Platelet Count (auto) 271 10^3/uL (140-450); Red Blood Cells 3.94 10^6/uL (4.0-5.20); Red Cell Distribution Width 13.3 % (11.8-14.3); White Blood Cell 11.7 10^3/uL (4.4-10.8)
[2021-04-05] MEDS: ACETAMINOPHEN 325 MG TAB PO PRN (09:33)
[2021-04-05] MEDS: levoFLOXacin 250MG 50 ML IV SCH (09:33)
[2021-04-05] MEDS: FAMOTIDINE 20 MG TAB PO SCH (09:33)
[2021-04-05] MEDS: SERTRALINE HCL 50 MG TAB PO SCH (09:34)
[2021-04-05] MEDS: ENALAPRIL MALEATE 10 MG TAB PO SCH ×2 (09:34→21:38)
[2021-04-05 09:53] LABS: Potassium 4.2 mmol/L (3.5-5.1)
[2021-04-05 10:02] LABS: Albumin 2.7 g/dL (3.4-5.0); BUN/Creatinine Ratio 24.6; Bilirubin, Total 0.1 mg/dL (0.2-1.0); Calcium 9.3 mg/dL (8.5-10.1); Magnesium 2.7 mg/dL (1.6-2.6); Total Protein 5.9 g/dL (6.4-8.2)
[2021-04-05] MEDS: hydrALAZINE HCL 20 MG/ML VL IV PRN (11:17)
[2021-04-05] MEDS ORDERED: SUMAtriptan SUCCINATE 25 MG TAB PO ONE (11:30)
[2021-04-05] MEDS ORDERED: SUMAtriptan SUCCINATE 25 MG TAB PO PRN (11:30)
[2021-04-05] MEDS ORDERED: cloNIDine HCL 0.1 MG TAB PO ONE (13:30)
[2021-04-05] MEDS: ONDANSETRON HCL 4 MG/2 ML VIAL IV PRN (18:00)
[2021-04-06] VITALS (82 sets, daily range): BP systolic 97–185; BP diastolic 30–110
[2021-04-06] MEDS: HYDROcodone-ACET 5/325MG TAB PO PRN ×2 (00:43→21:31)
[2021-04-06] MEDS: TEMAZEPAM 15 MG CAP PO PRN ×2 (01:21→23:16)
[2021-04-06] MEDS: ONDANSETRON HCL 4 MG/2 ML VIAL IV PRN ×3 (02:02→18:40)
[2021-04-06] MEDS: SODIUM CHLORIDE 0.9% 1,000 ML IV SCH ×2 (02:41→16:50)
[2021-04-06] MEDS: KETOROLAC TROMETH 30 MG/ML 1ML VIAL IV PRN ×5 (02:41→23:16)
[2021-04-06 05:10] LABS: INR 0.94 (0.9-1.15); Partial Thromboplastin Time 29.3 sec (23.0-31.2)
[2021-04-06] MEDS: GABAPENTIN 300 MG CAP PO SCH ×3 (05:41→21:32)
[2021-04-06] MEDS: ACCU-CHEK COMFORT CURVE STRIP VI SCH ×4 (06:35→21:57)
[2021-04-06] MEDS: MORPHINE SULFATE 4 MG/ML SYR/VIAL IV PRN ×2 (06:52→13:49)
[2021-04-06] MEDS: IPRATROPIUM BROM 0.5 MG/2.5ML INH SOL NEB PRN ×2 (07:48→18:42)
[2021-04-06] MEDS: LEVALBUTEROL HCL 1.25 MG/3 ML NEB NEB PRN ×2 (07:48→18:42)
[2021-04-06] MEDS ORDERED: IODIXANOL 320MG/ML 100ML BTL IV ONE (08:37)
[2021-04-06] MEDS ORDERED: LIDOCAINE 2%HCL (LOCAL ANESTH.) INJ 20ML MDV ONE (08:37)
[2021-04-06] MEDS ORDERED: VERAPAMIL 2.5MG/ML INJ 2ML VIAL IV ONE (08:52)
[2021-04-06] MEDS ORDERED: ANGIOMAX 250 MG VIAL IV ONE (08:52)
[2021-04-06] MEDS ORDERED: MIDAZOLAM HCL 1MG/1ML-2 ML VIAL ONE (08:53)
[2021-04-06] MEDS ORDERED: SODIUM CHL 0.9% 0 ML ONE (08:53)
[2021-04-06] MEDS ORDERED: fentaNYL CITRATE 100 MCG/2 ML VL ONE (08:53)
[2021-04-06] MEDS ORDERED: hydrALAZINE HCL 20 MG/ML VL ONE (09:03)
[2021-04-06] MEDS: levoFLOXacin 250MG 50 ML IV SCH (10:26)
[2021-04-06] MEDS: ENALAPRIL MALEATE 10 MG TAB PO SCH ×2 (10:27→21:32)
[2021-04-06] MEDS: SERTRALINE HCL 50 MG TAB PO SCH (10:27)
[2021-04-06] MEDS: NIFEdipine ER 30 MG TAB PO SCH (10:27)
[2021-04-06] MEDS: FAMOTIDINE 20 MG TAB PO SCH (10:27)
[2021-04-06] MEDS ORDERED: NIFEdipine ER 30 MG TAB PO ONE (17:15)
[2021-04-06] MEDS: MORPHINE SULF INJ 2 MG/ML SYRINGE 1ML IV PRN (19:20)
[2021-04-06] MEDS: ACETAMINOPHEN 325 MG TAB PO PRN (22:42)
[2021-04-07] VITALS (11 sets, daily range): BP systolic 144–169; BP diastolic 62–78
[2021-04-07] MEDS: MORPHINE SULF INJ 2 MG/ML SYRINGE 1ML IV PRN ×4 (00:20→18:34)
[2021-04-07] MEDS: HYDROcodone-ACET 5/325MG TAB PO PRN (04:18)
[2021-04-07] MEDS: KETOROLAC TROMETH 30 MG/ML 1ML VIAL IV PRN (05:24)
[2021-04-07] MEDS: ACCU-CHEK COMFORT CURVE STRIP VI SCH ×4 (06:56→21:11)
[2021-04-07] MEDS: GABAPENTIN 300 MG CAP PO SCH ×3 (06:56→21:11)
[2021-04-07] MEDS: ENALAPRIL MALEATE 10 MG TAB PO SCH ×2 (08:50→21:44)
[2021-04-07] MEDS: FAMOTIDINE 20 MG TAB PO SCH (08:50)
[2021-04-07] MEDS: SERTRALINE HCL 50 MG TAB PO SCH (08:51)
[2021-04-07] MEDS: NIFEdipine ER 30 MG TAB PO SCH ×2 (08:51→10:00)
[2021-04-07] MEDS: levoFLOXacin 250MG 50 ML IV SCH (08:52)
[2021-04-07] MEDS: METOPROLOL TARTRATE 25 MG TAB PO SCH ×2 (08:52→21:44)
[2021-04-07] MEDS ORDERED: NIFEdipine ER 30 MG TAB PO ONE (09:30)
[2021-04-07] MEDS: SODIUM CHLORIDE 0.9% 1,000 ML IV SCH (09:30)
[2021-04-07] MEDS: DOCUSATE SOD 100 MG CAP PO PRN (21:11)
[2021-04-07] MEDS: ACETAMINOPHEN 325 MG TAB PO PRN (21:32)
[2021-04-07] MEDS: IPRATROPIUM BROM 0.5 MG/2.5ML INH SOL NEB PRN (22:26)
[2021-04-07] MEDS: LEVALBUTEROL HCL 1.25 MG/3 ML NEB NEB PRN (22:26)
[2021-04-08] VITALS (7 sets, daily range): BP systolic 145–170; BP diastolic 72–99
[2021-04-08] MEDS: MORPHINE SULF INJ 2 MG/ML SYRINGE 1ML IV PRN ×4 (00:05→20:24)
[2021-04-08] MEDS: IPRATROPIUM BROM 0.5 MG/2.5ML INH SOL NEB PRN ×2 (02:44→10:56)
[2021-04-08] MEDS: LEVALBUTEROL HCL 1.25 MG/3 ML NEB NEB PRN ×2 (02:44→10:56)
[2021-04-08] MEDS: SODIUM CHLORIDE 0.9% 1,000 ML IV SCH ×2 (03:25→18:27)
[2021-04-08] MEDS: MORPHINE SULFATE 4 MG/ML SYR/VIAL IV PRN (05:06)
[2021-04-08] MEDS: GABAPENTIN 300 MG CAP PO SCH ×3 (05:07→21:25)
[2021-04-08] MEDS: ACCU-CHEK COMFORT CURVE STRIP VI SCH ×4 (06:46→21:32)
[2021-04-08] MEDS: levoFLOXacin 250MG 50 ML IV SCH (09:32)
[2021-04-08] MEDS: METOPROLOL TARTRATE 25 MG TAB PO SCH (09:32)
[2021-04-08] MEDS: NIFEdipine ER 30 MG TAB PO SCH (09:33)
[2021-04-08] MEDS: FAMOTIDINE 20 MG TAB PO SCH (09:33)
[2021-04-08] MEDS: ENALAPRIL MALEATE 10 MG TAB PO SCH ×2 (09:34→21:26)
[2021-04-08] MEDS: SERTRALINE HCL 50 MG TAB PO SCH (09:34)
[2021-04-08] MEDS: DOCUSATE SOD 100 MG CAP PO PRN (09:35)
[2021-04-08] MEDS: hydrALAZINE HCL 20 MG/ML VL IV PRN (11:37)
[2021-04-08] MEDS ORDERED: IBUPROFEN 600 MG TAB PO PRN (12:45)
[2021-04-08] MEDS ORDERED: ALPRAZolam 0.5 MG TAB PO PRN (12:45)
[2021-04-08] MEDS ORDERED: LACTULOSE 20Gm/30ML SOLN PO PRN (13:30)
[2021-04-08] MEDS: NICOTINE 7MG/24HR TOPICAL PATCH TD SCH (18:26)
[2021-04-08] MEDS: METOPROLOL TARTRATE 50 MG TAB PO SCH (21:25)
[2021-04-08] MEDS ORDERED: NIFEdipine ER 30 MG TAB PO SCH (22:00)
[2021-04-09] MEDS: MORPHINE SULF INJ 2 MG/ML SYRINGE 1ML IV PRN ×2 (04:28→12:03)
[2021-04-09] MEDS: GABAPENTIN 300 MG CAP PO SCH (06:29)
[2021-04-09] MEDS: ACCU-CHEK COMFORT CURVE STRIP VI SCH ×2 (06:30→11:30)
[2021-04-09] MEDS ORDERED: NIFEdipine ER 30 MG TAB PO SCH (07:00)
[2021-04-09] MEDS: LEVALBUTEROL HCL 1.25 MG/3 ML NEB NEB PRN ×2 (07:46→14:42)
[2021-04-09] MEDS: IPRATROPIUM BROM 0.5 MG/2.5ML INH SOL NEB PRN ×2 (07:46→14:42)
[2021-04-09 09:00] VITALS: BP 163/75
[2021-04-09] MEDS: METOPROLOL TARTRATE 50 MG TAB PO SCH (10:38)
[2021-04-09] MEDS: FAMOTIDINE 20 MG TAB PO SCH (10:38)
[2021-04-09] MEDS: ENALAPRIL MALEATE 10 MG TAB PO SCH (10:39)
[2021-04-09] MEDS: NICOTINE 7MG/24HR TOPICAL PATCH TD SCH (10:39)
[2021-04-09] MEDS: SERTRALINE HCL 50 MG TAB PO SCH (10:39)
[2021-04-09] MEDS: levoFLOXacin 250MG 50 ML IV SCH (10:40)
[2021-04-09 11:44] LABS: Basophils # (auto) 0.1 10 ^3/uL (0-0.2); Basophils % (auto) 0.6 % (0.0-2.0); Eosinophils # (auto) 0.3 10 ^3/uL (0-0.8); Eosinophils % (auto) 2.2 % (0.0-7.0); Hematocrit 39.7 % (36.0-46.0); Hemoglobin 13.5 g/dL (12.2-16.2); Lymphocytes # (auto) 2.5 10 ^3/uL (0.4-5.4); Lymphocytes % (auto) 18.6 % (10.0-50.0); Mean Corpuscular Hemoglobin 32.3 pg (28.0-32.0); Mean Corpuscular Hgb Conc. 34.1 g/dL (32.0-36.0); Mean Corpuscular Volume 94.9 fL (80.0-100.0); Monocytes # (auto) 1.1 10 ^3/uL (0-1.3); Monocytes % (auto) 7.8 % (0.0-12.0); Neutrophils # (auto) 9.6 10 ^3/uL (1.6-8.6); Neutrophils % (auto) 70.8 % (37.0-80.0); Platelet Count (auto) 269 10^3/uL (140-450); Red Blood Cells 4.19 10^6/uL (4.0-5.20); Red Cell Distribution Width 12.8 % (11.8-14.3); White Blood Cell 13.6 10^3/uL (4.4-10.8)
[2021-04-09] MEDS: SODIUM CHLORIDE 0.9% 1,000 ML IV SCH (11:44)
[2021-04-09 12:02] LABS: Albumin 3.1 g/dL (3.4-5.0); Calcium 9.4 mg/dL (8.5-10.1); Potassium 4.5 mmol/L (3.5-5.1)
[2021-04-09 12:08] LABS: BUN/Creatinine Ratio 22.2; Bilirubin, Total 0.2 mg/dL (0.2-1.0); Total Protein 6.8 g/dL (6.4-8.2)
[2021-04-09 13:00] VITALS: BP 153/82
[2021-04-09 13:01] VITALS: BP 153/94
== END 2021-04-09 15:40 | disposition home or self-care (01) | DRG 287 ==
LOC: ER 04:07 → TELE 08:11 → TELE-EAST 13:00 → ICU WEST 04-05 17:30 → TELE-CENTR 04-07 05:25
PROVIDERS: ADMIT Nurse Practitioner; ATTEND Nurse Practitioner
PROC: 4A023N7 Measurement of Cardiac Sampling and Pressure, Left Heart, Percutaneous Approach (ICD-10-PCS; principal; 2021-04-06)
PROC: B211YZZ Fluoroscopy of Multiple Coronary Arteries using Other Contrast (ICD-10-PCS; 2021-04-06)
PROC: B215YZZ Fluoroscopy of Left Heart using Other Contrast (ICD-10-PCS; 2021-04-06)
DX: I25.110 Atherosclerotic heart disease of native coronary artery with unstable angina pectoris (principal); N17.9 Acute kidney failure, unspecified; I16.1 Hypertensive emergency; E66.9 Obesity, unspecified; E11.40 Type 2 diabetes mellitus with diabetic neuropathy, unspecified; F17.210 Nicotine dependence, cigarettes, uncomplicated; I27.20 Pulmonary hypertension, unspecified; Z20.822 Contact with and (suspected) exposure to COVID-19; F41.9 Anxiety disorder, unspecified; F32.9 Major depressive disorder, single episode, unspecified; R00.1 Bradycardia, unspecified; J44.9 Chronic obstructive pulmonary disease, unspecified; G43.909 Migraine, unspecified, not intractable, without status migrainosus; Z68.26 Body mass index [BMI] 26.0-26.9, adult; Z88.0 Allergy status to penicillin; Z88.7 Allergy status to serum and vaccine; Z83.3 Family history of diabetes mellitus; Z71.6 Tobacco abuse counseling; Z90.49 Acquired absence of other specified parts of digestive tract; Z88.2 Allergy status to sulfonamides; Z88.8 Allergy status to other drugs, medicaments and biological substances
CPT/HCPCS: 36415; 70450; 71045; 76705; 76775; 78452; 80048; 80053; 81001; 82962; 83735; 83880; 84100; 84484; 85025; 85610; 85730; 87081; 87086; 87088; 87426; 93005; 93017; 93306; 93458; 94640; 96374; 96375; 99152; G0378; J0153; J1885; J1956; J2250; J2405; J3490; Q9967

== ENCOUNTER 2021-04-14 07:21 | Emergency (ER) | payer MEDICARE ==
[~2021-04-14] VITALS: Ht 154.9 cm; Wt 59.0 kg
[~2021-04-14 07:21] MED LIST changes: -MET25T OR
[2021-04-14 08:11] LABS: Basophils # (auto) 0.1 10 ^3/uL (0-0.2); Basophils % (auto) 0.6 % (0.0-2.0); Eosinophils # (auto) 0.2 10 ^3/uL (0-0.8); Eosinophils % (auto) 1.2 % (0.0-7.0); Hematocrit 41.8 % (36.0-46.0); Hemoglobin 14.2 g/dL (12.2-16.2); Lymphocytes # (auto) 1.7 10 ^3/uL (0.4-5.4); Lymphocytes % (auto) 13.6 % (10.0-50.0); Mean Corpuscular Hemoglobin 31.9 pg (28.0-32.0); Mean Corpuscular Hgb Conc. 33.9 g/dL (32.0-36.0); Mean Corpuscular Volume 94.1 fL (80.0-100.0); Monocytes # (auto) 0.6 10 ^3/uL (0-1.3); Monocytes % (auto) 4.4 % (0.0-12.0); Neutrophils # (auto) 10.2 10 ^3/uL (1.6-8.6); Neutrophils % (auto) 80.2 % (37.0-80.0); Red Blood Cells 4.45 10^6/uL (4.0-5.20); White Blood Cell 12.7 10^3/uL (4.4-10.8)
[2021-04-14] MEDS ORDERED: cloNIDine HCL 0.1 MG TAB PO ONE (08:15)
[2021-04-14] MEDS ORDERED: ONDANSETRON HCL 4 MG/2 ML VIAL IV ONE (08:15)
[2021-04-14] MEDS ORDERED: MORPHINE SULFATE 4 MG/ML SYR/VIAL IV PRN (08:15)
[2021-04-14] MEDS ORDERED: SODIUM CHLORIDE 0.9% 1,000 ML IV ONE (08:15)
[2021-04-14 08:35] LABS: Albumin 3.2 g/dL (3.4-5.0); Anion Gap 7 (5-15); Blood Urea Nitrogen 17 mg/dL (7-18); Calcium 9.7 mg/dL (8.5-10.1); Carbon Dioxide 26 mmol/L (21-32); Chloride 105 mmol/L (98-107); Glucose 184 mg/dL (74-106); Magnesium 2.2 mg/dL (1.6-2.6); Potassium 3.9 mmol/L (3.5-5.1); Sodium 138 mmol/L (136-145)
[2021-04-14 08:41] LABS: Alanine Aminotransferase 18 U/L (13-56); Alkaline Phosphatase 86 U/L (45-117); Aspartate Aminotransferase 15 U/L (15-37); BUN/Creatinine Ratio 15.9; Bilirubin, Total 0.3 mg/dL (0.2-1.0); GFR African American 66 mL/min; GFR Non-African American 55 mL/min; Total Protein 7.2 g/dL (6.4-8.2)
[2021-04-14 10:37] VITALS: BP 159/59
[2021-04-14 10:45] LABS: Urine Bacteria NONE SEEN /hpf (None Seen); Urine Blood Negative /uL (Negative); Urine Specific Gravity 1.011 (1.001-1.035); Urine WBC 2 /hpf (0 - 5)
== END 2021-04-14 12:02 | disposition home or self-care (01) ==
LOC: ER 07:21
DX: I16.0 Hypertensive urgency (principal); R51.9 Headache, unspecified; E11.65 Type 2 diabetes mellitus with hyperglycemia; E44.1 Mild protein-calorie malnutrition; E86.0 Dehydration; I11.0 Hypertensive heart disease with heart failure; I50.9 Heart failure, unspecified; F41.9 Anxiety disorder, unspecified; J44.9 Chronic obstructive pulmonary disease, unspecified; F32.9 Major depressive disorder, single episode, unspecified; F17.210 Nicotine dependence, cigarettes, uncomplicated; Z68.24 Body mass index [BMI] 24.0-24.9, adult; Z88.8 Allergy status to other drugs, medicaments and biological substances; Z88.0 Allergy status to penicillin; Z88.2 Allergy status to sulfonamides; Z79.899 Other long term (current) drug therapy; Z90.89 Acquired absence of other organs; Z90.49 Acquired absence of other specified parts of digestive tract
CPT/HCPCS: 36415; 80053; 81001; 83735; 83880; 84443; 84484; 85025; 93005; 96361; 96374; 96375; 99284; J2270; J2405

== ENCOUNTER 2021-06-16 13:05 | Inpatient (IN) | payer MEDICARE ==
[~2021-06-16] VITALS: Ht 154.9 cm; Wt 63.1 kg
[2021-06-16] MEDS ORDERED: SODIUM CHLORIDE 0.9% 1,000 ML IVB ONE (14:15)
[2021-06-16 15:33] LABS: Albumin 2.8 g/dL (3.4-5.0); Anion Gap 2 (5-15); Blood Urea Nitrogen 20 mg/dL (7-18); Calcium 8.8 mg/dL (8.5-10.1); Carbon Dioxide 24 mmol/L (21-32); Chloride 111 mmol/L (98-107); Glucose 129 mg/dL (74-106); Potassium 4.8 mmol/L (3.5-5.1); Sodium 137 mmol/L (136-145)
[2021-06-16 15:39] LABS: Alanine Aminotransferase 15 U/L (13-56); Alkaline Phosphatase 86 U/L (45-117); Aspartate Aminotransferase 12 U/L (15-37); BUN/Creatinine Ratio 17.5; Bilirubin, Total 0.2 mg/dL (0.2-1.0); GFR African American 62 mL/min; GFR Non-African American 51 mL/min; Total Protein 6.3 g/dL (6.4-8.2)
[2021-06-16 15:45] LABS: INR 0.94 (0.9-1.15); Partial Thromboplastin Time 24.1 sec (23.0-31.2)
[2021-06-16] MEDS ORDERED: ACETAMINOPHEN 325 MG TAB PO ONE (15:45)
[2021-06-16 16:17] LABS: Basophils # (auto) 0.1 10 ^3/uL (0-0.2); Basophils % (auto) 1.3 % (0.0-2.0); Eosinophils # (auto) 0.3 10 ^3/uL (0-0.8); Eosinophils % (auto) 2.8 % (0.0-7.0); Hematocrit 42.6 % (36.0-46.0); Hemoglobin 14.1 g/dL (12.2-16.2); Lymphocytes # (auto) 2.6 10 ^3/uL (0.4-5.4); Lymphocytes % (auto) 23.2 % (10.0-50.0); Mean Corpuscular Hemoglobin 31.9 pg (28.0-32.0); Mean Corpuscular Volume 96.6 fL (80.0-100.0); Monocytes # (auto) 0.7 10 ^3/uL (0-1.3); Monocytes % (auto) 6.1 % (0.0-12.0); Neutrophils # (auto) 7.6 10 ^3/uL (1.6-8.6); Neutrophils % (auto) 66.6 % (37.0-80.0); Nucleated Red Blood Cells % 0.1 %; Red Blood Cells 4.41 10^6/uL (4.0-5.20); Red Cell Distribution Width 13.4 % (11.8-14.3); White Blood Cell 11.4 10^3/uL (4.4-10.8)
[2021-06-16] MEDS ORDERED: MORPHINE SULF INJ 2 MG/ML SYRINGE 1ML IV PRN (18:00)
[2021-06-16] MEDS ORDERED: ONDANSETRON HCL 4 MG/2 ML VIAL IV PRN (18:00)
[2021-06-16] MEDS ORDERED: NITROGLYCERIN 0.4 MG SL TAB SL PRN ×2 (18:00→18:15)
[2021-06-16] MEDS ORDERED: DEXTROSE (50%) 50ML SYRG IV PRN (18:00)
[2021-06-16] MEDS ORDERED: ALBUTEROL SULF 2.5 MG/0.5ML(0.5%) NEB SOLN NEB PRN (18:00)
[2021-06-16] MEDS ORDERED: MORPHINE SULFATE 4 MG/ML SYR/VIAL IV PRN (18:00)
[2021-06-16] MEDS ORDERED: TEMAZEPAM 15 MG CAP PO PRN (18:00)
[2021-06-16] MEDS ORDERED: ACETAMINOPHEN 325 MG TAB PO PRN (18:00)
[2021-06-16] MEDS ORDERED: DOCUSATE SOD 100 MG CAP PO PRN (18:00)
[2021-06-16] MEDS ORDERED: hydrALAZINE HCL 20 MG/ML VL IV PRN (19:00)
[2021-06-16] MEDS: LEVALBUTEROL HCL 1.25 MG/3 ML NEB NEB SCH (19:23)
[2021-06-16 20:09] VITALS: BP 150/60
[2021-06-16] MEDS: InsuLIN REG 1unit/0.01ml Soln (100units/ml) SC SCH (22:00)
[2021-06-16] MEDS: ACCU-CHEK COMFORT CURVE STRIP VI SCH (22:21)
[2021-06-16] MEDS: GABAPENTIN 300 MG CAP PO SCH (22:27)
[2021-06-16 23:10] VITALS: BP 143/74
[2021-06-16 23:55] VITALS: BP 143/74
[2021-06-17] MEDS: HYDROcodone-ACET 5/325MG TAB PO PRN ×3 (00:07→09:49)
[2021-06-17] MEDS: LEVALBUTEROL HCL 1.25 MG/3 ML NEB NEB SCH ×5 (00:13→23:52)
[2021-06-17 05:00] VITALS: BP 153/69
[2021-06-17] MEDS: GABAPENTIN 300 MG CAP PO SCH ×3 (05:25→21:49)
[2021-06-17 05:44] LABS: Urine Bacteria NONE SEEN /hpf (None Seen); Urine Blood Negative /uL (Negative); Urine Specific Gravity 1.012 (1.001-1.035); Urine WBC <1 /hpf (0 - 5)
[2021-06-17] MEDS: InsuLIN REG 1unit/0.01ml Soln (100units/ml) SC SCH ×4 (06:33→22:10)
[2021-06-17] MEDS: ACCU-CHEK COMFORT CURVE STRIP VI SCH ×4 (06:33→21:50)
[2021-06-17 06:56] LABS: Basophils # (auto) 0.1 10 ^3/uL (0-0.2); Basophils % (auto) 1.3 % (0.0-2.0); Eosinophils # (auto) 0.4 10 ^3/uL (0-0.8); Hematocrit 38.5 % (36.0-46.0); Lymphocytes # (auto) 3.1 10 ^3/uL (0.4-5.4); Lymphocytes % (auto) 36.2 % (10.0-50.0); Mean Corpuscular Hemoglobin 32.3 pg (28.0-32.0); Mean Corpuscular Hgb Conc. 33.6 g/dL (32.0-36.0); Mean Corpuscular Volume 96.1 fL (80.0-100.0); Monocytes # (auto) 0.7 10 ^3/uL (0-1.3); Monocytes % (auto) 8.4 % (0.0-12.0); Neutrophils # (auto) 4.2 10 ^3/uL (1.6-8.6); Neutrophils % (auto) 49.1 % (37.0-80.0); Nucleated Red Blood Cells % 0.1 %; Red Blood Cells 4.01 10^6/uL (4.0-5.20); Red Cell Distribution Width 13.1 % (11.8-14.3); White Blood Cell 8.5 10^3/uL (4.4-10.8)
[2021-06-17 07:07] LABS: Albumin 2.9 g/dL (3.4-5.0); BUN/Creatinine Ratio 17.1; Calcium 8.9 mg/dL (8.5-10.1); Potassium 4.3 mmol/L (3.5-5.1)
[2021-06-17 07:16] LABS: Bilirubin, Total 0.2 mg/dL (0.2-1.0); Total Protein 5.8 g/dL (6.4-8.2)
[2021-06-17 09:00] VITALS: BP 162/69
[2021-06-17] MEDS: ENOXAPARIN SOD 40 MG/0.4 ML SYRINGE SC SCH (09:49)
[2021-06-17] MEDS: FUROSEMIDE 40 MG TAB PO SCH (09:49)
[2021-06-17] MEDS: amLODIPine BESYLATE 5 MG TAB PO SCH (09:49)
[2021-06-17] MEDS ORDERED: levoFLOXacin 500 MG TAB PO ONE (12:25)
[2021-06-17 13:00] VITALS: BP_SYST 128; BP_SYST 150; BP_DIAS 74; BP_DIAS 78
[2021-06-17] MEDS ORDERED: OMNIPAQUE ORAL SOLN 500ml 12mg/ml PO ONE (13:14)
[2021-06-17] MEDS: MORPHINE SULFATE 10 MG/5 ML ORAL SOLN PO PRN ×2 (14:18→22:18)
[2021-06-17] MEDS ORDERED: IOHEXOL 300 MG/ML 100ML BOTTLE IJ ONE (15:51)
[2021-06-17 17:00] VITALS: BP 149/70
[2021-06-17 20:00] VITALS: BP 152/77
[2021-06-17] MEDS: predniSONE 20 MG TAB PO SCH (21:49)
[2021-06-17] MEDS: ENALAPRIL MALEATE 10 MG TAB PO SCH (21:50)
[2021-06-17 22:00] VITALS: BP 152/77
[2021-06-18] VITALS (7 sets, daily range): BP systolic 126–150; BP diastolic 72–80
[2021-06-18] MEDS ORDERED: OLME40TA26 PO (01:07)
[2021-06-18] MEDS ORDERED: IPRAAER6 IN (01:07)
[2021-06-18] MEDS ORDERED: ATOR10TA52 PO (01:07)
[2021-06-18] MEDS ORDERED: BUDE1AER6 IN (01:07)
[2021-06-18] MEDS ORDERED: DULO20CA PO (01:07)
[2021-06-18] MEDS ORDERED: ENAL2.5T7 PO (01:07)
[2021-06-18] MEDS ORDERED: METO-158 PO (01:07)
[2021-06-18] MEDS ORDERED: LINA145C OR (01:07)
[2021-06-18] MEDS: HYDROcodone-ACET 5/325MG TAB PO PRN ×3 (02:10→20:59)
[2021-06-18] MEDS: LEVALBUTEROL HCL 1.25 MG/3 ML NEB NEB SCH ×3 (06:00→19:53)
[2021-06-18] MEDS: GABAPENTIN 300 MG CAP PO SCH ×3 (06:11→22:05)
[2021-06-18] MEDS: MORPHINE SULFATE 10 MG/5 ML ORAL SOLN PO PRN ×2 (06:11→18:44)
[2021-06-18] MEDS: ACCU-CHEK COMFORT CURVE STRIP VI SCH ×4 (06:45→22:07)
[2021-06-18] MEDS: InsuLIN REG 1unit/0.01ml Soln (100units/ml) SC SCH ×4 (06:46→22:31)
[2021-06-18 08:03] LABS: Albumin 3.2 g/dL (3.4-5.0); BUN/Creatinine Ratio 18.8; Calcium 9.3 mg/dL (8.5-10.1); Potassium 4.3 mmol/L (3.5-5.1)
[2021-06-18 08:06] LABS: Bilirubin, Total 0.3 mg/dL (0.2-1.0); Total Protein 6.6 g/dL (6.4-8.2)
[2021-06-18] MEDS: predniSONE 20 MG TAB PO SCH ×2 (09:50→22:06)
[2021-06-18] MEDS: ENOXAPARIN SOD 40 MG/0.4 ML SYRINGE SC SCH (09:51)
[2021-06-18] MEDS: levoFLOXacin 250 MG TAB PO SCH (09:51)
[2021-06-18] MEDS: ENALAPRIL MALEATE 10 MG TAB PO SCH ×2 (10:02→22:06)
[2021-06-18] MEDS: amLODIPine BESYLATE 5 MG TAB PO SCH (10:03)
[2021-06-18] MEDS: FUROSEMIDE 40 MG TAB PO SCH (10:03)
[2021-06-19] MEDS: HYDROcodone-ACET 5/325MG TAB PO PRN ×2 (01:24→06:02)
[2021-06-19] MEDS: LEVALBUTEROL HCL 1.25 MG/3 ML NEB NEB SCH ×3 (01:34→11:52)
[2021-06-19 05:00] VITALS: BP 142/71
[2021-06-19] MEDS: GABAPENTIN 300 MG CAP PO SCH ×2 (06:02→14:11)
[2021-06-19] MEDS: ACCU-CHEK COMFORT CURVE STRIP VI SCH ×3 (06:06→18:16)
[2021-06-19] MEDS: InsuLIN REG 1unit/0.01ml Soln (100units/ml) SC SCH ×3 (06:24→18:16)
[2021-06-19 08:00] VITALS: BP 133/71
[2021-06-19 09:00] VITALS: BP 133/71
[2021-06-19 09:38] LABS: Basophils # (auto) 0 10 ^3/uL (0-0.2); Basophils % (auto) 0.2 % (0.0-2.0); Eosinophils # (auto) 0 10 ^3/uL (0-0.8); Eosinophils % (auto) 0.1 % (0.0-7.0); Hematocrit 43.1 % (36.0-46.0); Hemoglobin 14.3 g/dL (12.2-16.2); Lymphocytes # (auto) 1.8 10 ^3/uL (0.4-5.4); Mean Corpuscular Hemoglobin 31.7 pg (28.0-32.0); Mean Corpuscular Hgb Conc. 33.3 g/dL (32.0-36.0); Mean Corpuscular Volume 95.3 fL (80.0-100.0); Monocytes # (auto) 0.9 10 ^3/uL (0-1.3); Monocytes % (auto) 7.3 % (0.0-12.0); Neutrophils % (auto) 78.4 % (37.0-80.0); Red Blood Cells 4.52 10^6/uL (4.0-5.20); Red Cell Distribution Width 13.3 % (11.8-14.3); White Blood Cell 12.8 10^3/uL (4.4-10.8)
[2021-06-19 10:02] LABS: Calcium 9.3 mg/dL (8.5-10.1); Magnesium 2.8 mg/dL (1.6-2.6); Potassium 4.1 mmol/L (3.5-5.1)
[2021-06-19 10:08] LABS: Albumin 3.1 g/dL (3.4-5.0); BUN/Creatinine Ratio 23.1; Bilirubin, Total 0.3 mg/dL (0.2-1.0); Total Protein 6.9 g/dL (6.4-8.2)
[2021-06-19] MEDS: predniSONE 20 MG TAB PO SCH (10:09)
[2021-06-19] MEDS: FUROSEMIDE 40 MG TAB PO SCH (10:09)
[2021-06-19] MEDS: levoFLOXacin 250 MG TAB PO SCH (10:09)
[2021-06-19] MEDS: ENALAPRIL MALEATE 10 MG TAB PO SCH (10:09)
[2021-06-19] MEDS: amLODIPine BESYLATE 5 MG TAB PO SCH (10:10)
[2021-06-19] MEDS: MORPHINE SULFATE 10 MG/5 ML ORAL SOLN PO PRN (10:11)
[2021-06-19] MEDS: ENOXAPARIN SOD 40 MG/0.4 ML SYRINGE SC SCH (10:12)
[2021-06-19 13:00] VITALS: BP 156/70
[2021-06-19 15:14] VITALS: BP 156/70
== END 2021-06-19 18:18 | disposition home health service (06) | DRG 189 ==
LOC: ER 13:05 → EDBD 13:05 → TELE 17:56 → TELE-CENTR 23:06
PROVIDERS: ADMIT Nurse Practitioner; ATTEND Internal Medicine Cardiovascular Disease
PROC: 5A09357 Assistance with Respiratory Ventilation, Less than 24 Consecutive Hours, Continuous Positive Airway Pressure (ICD-10-PCS; principal; 2021-06-17)
PROC: 5A09357 Assistance with Respiratory Ventilation, Less than 24 Consecutive Hours, Continuous Positive Airway Pressure (ICD-10-PCS; 2021-06-19)
DX: J96.21 Acute and chronic respiratory failure with hypoxia (principal); J44.1 Chronic obstructive pulmonary disease with (acute) exacerbation; J96.22 Acute and chronic respiratory failure with hypercapnia; F17.210 Nicotine dependence, cigarettes, uncomplicated; I11.0 Hypertensive heart disease with heart failure; Z20.822 Contact with and (suspected) exposure to COVID-19; I25.10 Atherosclerotic heart disease of native coronary artery without angina pectoris; I50.9 Heart failure, unspecified; M19.90 Unspecified osteoarthritis, unspecified site; F32.9 Major depressive disorder, single episode, unspecified; F41.9 Anxiety disorder, unspecified; E11.40 Type 2 diabetes mellitus with diabetic neuropathy, unspecified; Z83.3 Family history of diabetes mellitus; Z80.0 Family history of malignant neoplasm of digestive organs; Z79.899 Other long term (current) drug therapy; Z88.0 Allergy status to penicillin; Z88.2 Allergy status to sulfonamides; Z88.7 Allergy status to serum and vaccine; Z99.81 Dependence on supplemental oxygen; Z88.8 Allergy status to other drugs, medicaments and biological substances; Z91.041 Radiographic dye allergy status; Z90.49 Acquired absence of other specified parts of digestive tract
CPT/HCPCS: 36415; 36600; 71045; 74177; 74181; 80053; 81001; 82805; 82962; 83036; 83605; 83735; 83880; 84484; 85025; 85610; 85730; 87040; 87426; 93005; 94640; 94660; 96360; G0378; J1815

== ENCOUNTER 2021-08-24 17:46 | Emergency (ER) | payer MEDICARE ==
[~2021-08-24] VITALS: Ht 170.2 cm; Wt 79.4 kg
[~2021-08-24 17:46] MED LIST changes: +ATOR10TA52 PO; +BUDE1AER6 IN; +DULO20CA PO; +ENAL2.5T7 PO; +IPRAAER6 IN; +LINA145C OR; +METO-158 PO; +OLME40TA26 PO
[2021-08-24 17:53] VITALS: BP 114/57
== END 2021-08-26 07:00 | disposition left against medical advice (07) ==
LOC: EDBD 17:46 → ER 17:47
DX: R06.02 Shortness of breath (principal); Z53.21 Procedure and treatment not carried out due to patient leaving prior to being seen by health care provider

== ENCOUNTER 2022-01-03 13:55 | Emergency (ER) | payer MEDICARE ==
[~2022-01-03] VITALS: Ht 162.6 cm; Wt 68.0 kg
[2022-01-03] MEDS ORDERED: PROMETHAZINE HCL 25 MG/ML 1ML IM ONE (16:00)
[2022-01-03] MEDS ORDERED: MEPERIDINE HCL (50 MG/ML) 1 ML VIAL IM ONE (16:00)
[2022-01-03 16:23] VITALS: BP 161/79
== END 2022-01-03 17:07 | disposition home or self-care (01) ==
LOC: ER 13:55 → EDBD 13:55 → ER 17:07
DX: R51.9 Headache, unspecified (principal); G89.29 Other chronic pain; F17.210 Nicotine dependence, cigarettes, uncomplicated; I11.0 Hypertensive heart disease with heart failure; I50.9 Heart failure, unspecified; E11.9 Type 2 diabetes mellitus without complications; E78.5 Hyperlipidemia, unspecified; Z90.49 Acquired absence of other specified parts of digestive tract; Z88.2 Allergy status to sulfonamides; Z88.0 Allergy status to penicillin; Z88.8 Allergy status to other drugs, medicaments and biological substances
CPT/HCPCS: 96372

== ENCOUNTER 2022-01-04 10:45 | Inpatient (IN) | payer MEDICARE ==
[~2022-01-04] VITALS: Ht 162.6 cm; Wt 66.5 kg
[2022-01-04] MEDS ORDERED: methylPREDNISolone SOD SUCC 125 MG/2 ML VL IV ONE (11:00)
[2022-01-04] MEDS ORDERED: ONDANSETRON HCL 4 MG/2 ML VIAL IV ONE (11:45)
[2022-01-04] MEDS ORDERED: MORPHINE SULFATE INJECTION 2 MG/ML SYRG IV ONE (11:45)
[2022-01-04 12:24] LABS: Albumin 3.7 g/dL (3.4-5.0); BUN/Creatinine Ratio 25.5; Calcium 10.5 mg/dL (8.5-10.1)
[2022-01-04 12:32] LABS: Bilirubin, Total 0.2 mg/dL (0.2-1.0); Total Protein 7.1 g/dL (6.4-8.2)
[2022-01-04 12:56] LABS: Basophils # (auto) 0.1 10 ^3/uL (0-0.2); Basophils % (auto) 0.4 % (0.0-2.0); Eosinophils # (auto) 0.2 10 ^3/uL (0-0.8); Eosinophils % (auto) 0.9 % (0.0-7.0); Hematocrit 39.5 % (36.0-46.0); Lymphocytes % (auto) 18.9 % (10.0-50.0); Mean Corpuscular Hemoglobin 30.5 pg (28.0-32.0); Mean Corpuscular Hgb Conc. 32.8 g/dL (32.0-36.0); Mean Corpuscular Volume 92.7 fL (80.0-100.0); Monocytes # (auto) 1.5 10 ^3/uL (0-1.3); Monocytes % (auto) 9.1 % (0.0-12.0); Neutrophils # (auto) 11.4 10 ^3/uL (1.6-8.6); Neutrophils % (auto) 70.7 % (37.0-80.0); Nucleated Red Blood Cells % 0.1 %; Red Blood Cells 4.26 10^6/uL (4.0-5.20); Red Cell Distribution Width 13.5 % (11.8-14.3); White Blood Cell 16.1 10^3/uL (4.4-10.8)
[2022-01-04] MEDS ORDERED: DOCUSATE SOD 100 MG CAP PO PRN ×2 (13:15→23:45)
[2022-01-04] MEDS ORDERED: NITROGLYCERIN 0.4 MG SL TAB SL PRN ×3 (13:15→23:45)
[2022-01-04] MEDS ORDERED: HYDROcodone-ACET 5/325MG TAB PO PRN (13:15)
[2022-01-04] MEDS ORDERED: ONDANSETRON HCL 4 MG/2 ML VIAL IV PRN ×2 (13:15→23:45)
[2022-01-04] MEDS ORDERED: IPRATROPIUM BROM 0.5 MG/2.5ML INH SOL NEB PRN (13:15)
[2022-01-04] MEDS ORDERED: ACETAMINOPHEN 325 MG TAB PO PRN ×2 (13:15→23:45)
[2022-01-04] MEDS ORDERED: MORPHINE SULFATE 4 MG/ML SYR/VIAL IV PRN (13:15)
[2022-01-04] MEDS ORDERED: MORPHINE SULFATE INJECTION 2 MG/ML SYRG IV PRN ×3 (13:15→23:45)
[2022-01-04] MEDS ORDERED: ALBUTEROL SULF 2.5 MG/0.5ML(0.5%) NEB SOLN NEB PRN (13:15)
[2022-01-04] MEDS ORDERED: levoFLOXacin 750MG 150 ML IV ONE (14:00)
[2022-01-04] MEDS ORDERED: ALPRAZolam 0.5 MG TAB PO ONE (14:15)
[2022-01-04 17:00] VITALS: BP 132/60
[2022-01-04 20:00] VITALS: BP 155/51
[2022-01-04 22:00] VITALS: BP 155/51
[2022-01-04] MEDS ORDERED: ASCORBIC ACID 500 MG TAB PO SCH (22:00)
[2022-01-05] MEDS: MORPHINE SULFATE 4 MG/ML SYR/VIAL IV PRN ×3 (01:19→20:33)
[2022-01-05] MEDS: IPRATROPIUM BROM 0.5 MG/2.5ML INH SOL NEB PRN ×2 (02:17→13:32)
[2022-01-05] MEDS: ALBUTEROL SULF 2.5 MG/0.5ML(0.5%) NEB SOLN NEB PRN ×2 (02:17→13:32)
[2022-01-05 05:00] VITALS: BP 156/81
[2022-01-05 08:47] VITALS: BP 180/66
[2022-01-05] MEDS ORDERED: ZINC SULFATE 220mg CAP or TAB PO SCH (10:00)
[2022-01-05] MEDS ORDERED: ENOXAPARIN SOD 40 MG/0.4 ML SYRINGE SC SCH (10:00)
[2022-01-05] MEDS ORDERED: levoFLOXacin 500MG 100 ML IV SCH (10:00)
[2022-01-05] MEDS ORDERED: MULTIPLE VITAMIN TAB PO SCH (10:00)
[2022-01-05] MEDS: levoFLOXacin 500MG 100 ML IV SCH (10:23)
[2022-01-05] MEDS: ZINC SULFATE 220mg CAP or TAB PO SCH (10:23)
[2022-01-05] MEDS: ASCORBIC ACID 500 MG TAB PO SCH ×2 (10:24→21:09)
[2022-01-05] MEDS: MULTIPLE VITAMIN TAB PO SCH (10:24)
[2022-01-05] MEDS: ENOXAPARIN SOD 40 MG/0.4 ML SYRINGE SC SCH (10:25)
[2022-01-05 12:52] VITALS: BP 194/80
[2022-01-05] MEDS ORDERED: LABETALOL HCL 5 MG/ML 4ML SYRINGE IV PRN (14:45)
[2022-01-05] MEDS ORDERED: METO25TA5 PO (15:27)
[2022-01-05] MEDS ORDERED: amLODIPine BESYLATE 5 MG TAB PO ONE (15:30)
[2022-01-05] MEDS: GABAPENTIN 300 MG CAP PO SCH ×2 (16:09→21:08)
[2022-01-05] MEDS: HYDROcodone-ACET 5/325MG TAB PO PRN (16:11)
[2022-01-05 16:24] VITALS: BP 198/77
[2022-01-05 19:24] VITALS: BP 198/77
[2022-01-05] MEDS: ENALAPRIL MALEATE 10 MG TAB PO SCH (21:09)
[2022-01-05 21:57] VITALS: BP 159/66
[2022-01-06] MEDS: MORPHINE SULFATE 4 MG/ML SYR/VIAL IV PRN ×5 (01:12→18:50)
[2022-01-06] MEDS: HYDROcodone-ACET 5/325MG TAB PO PRN ×2 (02:01→16:40)
[2022-01-06] MEDS: GABAPENTIN 300 MG CAP PO SCH ×3 (05:11→21:02)
[2022-01-06 05:23] VITALS: BP 148/57
[2022-01-06] MEDS: ALBUTEROL SULF 2.5 MG/0.5ML(0.5%) NEB SOLN NEB PRN ×2 (06:47→18:53)
[2022-01-06] MEDS: IPRATROPIUM BROM 0.5 MG/2.5ML INH SOL NEB PRN ×2 (06:47→18:53)
[2022-01-06 08:00] VITALS: BP 139/67
[2022-01-06 08:12] VITALS: BP_SYST 148; BP_DIAS 57; BP_DIAS 67
[2022-01-06] MEDS: levoFLOXacin 500MG 100 ML IV SCH (09:02)
[2022-01-06] MEDS: ZINC SULFATE 220mg CAP or TAB PO SCH (09:02)
[2022-01-06] MEDS: FUROSEMIDE 40 MG TAB PO SCH (09:03)
[2022-01-06] MEDS: amLODIPine BESYLATE 5 MG TAB PO SCH (09:03)
[2022-01-06] MEDS: MULTIPLE VITAMIN TAB PO SCH (09:03)
[2022-01-06] MEDS: ENOXAPARIN SOD 40 MG/0.4 ML SYRINGE SC SCH (09:04)
[2022-01-06] MEDS: ENALAPRIL MALEATE 10 MG TAB PO SCH ×2 (09:04→21:02)
[2022-01-06] MEDS: ASCORBIC ACID 500 MG TAB PO SCH ×2 (09:04→21:03)
[2022-01-06 12:36] VITALS: BP 148/74
[2022-01-06 17:39] VITALS: BP 138/84
[2022-01-06 21:33] VITALS: BP 150/76
[2022-01-07] MEDS: MORPHINE SULFATE 4 MG/ML SYR/VIAL IV PRN ×2 (03:13→14:14)
[2022-01-07] MEDS: IPRATROPIUM BROM 0.5 MG/2.5ML INH SOL NEB PRN ×2 (03:44→09:09)
[2022-01-07] MEDS: ALBUTEROL SULF 2.5 MG/0.5ML(0.5%) NEB SOLN NEB PRN ×2 (03:44→09:09)
[2022-01-07 04:33] VITALS: BP 119/79
[2022-01-07] MEDS: GABAPENTIN 300 MG CAP PO SCH ×2 (05:07→14:00)
[2022-01-07] MEDS: HYDROcodone-ACET 5/325MG TAB PO PRN (06:42)
[2022-01-07 09:00] VITALS: BP 134/100
[2022-01-07] MEDS: FUROSEMIDE 40 MG TAB PO SCH (09:55)
[2022-01-07] MEDS: ZINC SULFATE 220mg CAP or TAB PO SCH (09:55)
[2022-01-07] MEDS: MULTIPLE VITAMIN TAB PO SCH (09:55)
[2022-01-07] MEDS: levoFLOXacin 500MG 100 ML IV SCH ×2 (09:55→09:56)
[2022-01-07] MEDS: ENALAPRIL MALEATE 10 MG TAB PO SCH (09:56)
[2022-01-07] MEDS: ASCORBIC ACID 500 MG TAB PO SCH (09:56)
[2022-01-07] MEDS: amLODIPine BESYLATE 5 MG TAB PO SCH (09:56)
[2022-01-07] MEDS: ENOXAPARIN SOD 40 MG/0.4 ML SYRINGE SC SCH (09:57)
[2022-01-07 13:00] VITALS: BP 104/77
[2022-01-07] MEDS ORDERED: AML5T PO (15:38)
[2022-01-07 16:13] VITALS: BP 131/79
== END 2022-01-07 18:23 | disposition home health service (06) | DRG 189 ==
LOC: EDBD 10:45 → ER 10:45 → TELE-WESTW 13:14 → ER 15:06
PROVIDERS: ADMIT Internal Medicine; ATTEND Internal Medicine
DX: J96.01 Acute respiratory failure with hypoxia (principal); J44.1 Chronic obstructive pulmonary disease with (acute) exacerbation; I16.1 Hypertensive emergency; E11.9 Type 2 diabetes mellitus without complications; E78.5 Hyperlipidemia, unspecified; F17.210 Nicotine dependence, cigarettes, uncomplicated; I11.0 Hypertensive heart disease with heart failure; I50.9 Heart failure, unspecified; F41.9 Anxiety disorder, unspecified; E66.9 Obesity, unspecified; F32.A Depression, unspecified; G43.909 Migraine, unspecified, not intractable, without status migrainosus; I25.10 Atherosclerotic heart disease of native coronary artery without angina pectoris; M19.90 Unspecified osteoarthritis, unspecified site; Z20.822 Contact with and (suspected) exposure to COVID-19; Z79.899 Other long term (current) drug therapy; Z87.01 Personal history of pneumonia (recurrent); Z90.49 Acquired absence of other specified parts of digestive tract; Z88.1 Allergy status to other antibiotic agents; Z88.2 Allergy status to sulfonamides; Z88.8 Allergy status to other drugs, medicaments and biological substances; Z82.49 Family history of ischemic heart disease and other diseases of the circulatory system; Z82.3 Family history of stroke; Z88.7 Allergy status to serum and vaccine
CPT/HCPCS: 36415; 70450; 71045; 80053; 83880; 84484; 85025; 85379; 87040; 87426; 93005; 93306; 94640; 96365; 96372; 96375; G0378; J1956; J2405

== ENCOUNTER 2022-02-11 07:01 | Inpatient (IN) | payer MEDICARE ==
[2022-02-11] VITALS (40 sets, daily range): BP systolic 93–119; BP diastolic 32–56
[~2022-02-11] VITALS: Ht 157.5 cm; Wt 65.6 kg
[2022-02-11] MEDS: MIDAZOLAM DRIP 50 mg/50mL 50 ML IV SCH ×5 (03:00→22:46)
[~2022-02-11 07:01] MED LIST changes: +AML5T PO; -ENAL10TA12 PO
[2022-02-11] MEDS ORDERED: ETOMIDATE (2MG/ML) 20ML VIAL IV ONE ×2 (07:15→07:45)
[2022-02-11] MEDS ORDERED: SUCCINYLCHOLINE CHLORIDE 20 MG/ML 10ML VIAL IV ONE ×2 (07:16→07:45)
[2022-02-11] MEDS ORDERED: MIDAZOLAM DRIP 50 mg/50mL 50 ML IV ONE (07:21)
[2022-02-11] MEDS ORDERED: DOPamine 1600MCG/ML D5W 250 ML IV ONE (07:28)
[2022-02-11] MEDS: SODIUM CHLORIDE 0.9% 500 ML IV ONE ×3 (07:35→08:09)
[2022-02-11] MEDS: DOPamine 1600MCG/ML D5W 250 ML IV SCH ×2 (07:56→21:30)
[2022-02-11] MEDS ORDERED: NOREPINEPHRINE 8 MG/250ML KIT 0 ML IV ONE (08:00)
[2022-02-11 08:18] LABS: Basophils # (auto) 0 10 ^3/uL (0-0.2); Basophils % (auto) 0.1 % (0.0-2.0); Eosinophils # (auto) 0 10 ^3/uL (0-0.8); Eosinophils % (auto) 0.1 % (0.0-7.0); Hematocrit 35.6 % (36.0-46.0); Hemoglobin 11.6 g/dL (12.2-16.2); Lymphocytes # (auto) 0.8 10 ^3/uL (0.4-5.4); Lymphocytes % (auto) 3.5 % (10.0-50.0); Mean Corpuscular Hemoglobin 30.3 pg (28.0-32.0); Mean Corpuscular Hgb Conc. 32.4 g/dL (32.0-36.0); Mean Corpuscular Volume 93.5 fL (80.0-100.0); Monocytes # (auto) 2.1 10 ^3/uL (0-1.3); Monocytes % (auto) 9.4 % (0.0-12.0); Neutrophils # (auto) 19.1 10 ^3/uL (1.6-8.6); Neutrophils % (auto) 86.9 % (37.0-80.0); Red Blood Cells 3.81 10^6/uL (4.0-5.20); Red Cell Distribution Width 14.7 % (11.8-14.3); White Blood Cell 21.9 10^3/uL (4.4-10.8)
[2022-02-11 08:26] LABS: Urine Bacteria NONE SEEN /hpf (None Seen); Urine Blood Negative /uL (Negative); Urine Specific Gravity 1.017 (1.001-1.035); Urine WBC 2 /hpf (0 - 5)
[2022-02-11] MEDS ORDERED: IOHEXOL 350 MG/ML 100ML IJ ONE (08:26)
[2022-02-11] MEDS ORDERED: ROCURONIUM 10MG/ML 10ML VIAL IV ONE ×2 (08:35)
[2022-02-11 08:37] LABS: INR 0.97 (0.9-1.15)
[2022-02-11] MEDS: NOREPINEPHRINE 8 MG/250ML KIT 250 ML IV SCH (10:38)
[2022-02-11] MEDS ORDERED: cefTRIAXone 1GM/50ML D5W 50 ML IV ONE (11:45)
[2022-02-11] MEDS ORDERED: AZITHROMYCIN 500MG/ 250ML 250 ML IV ONE (11:45)
[2022-02-11 12:17] LABS: Albumin 2.9 g/dL (3.4-5.0); Calcium 8.7 mg/dL (8.5-10.1); Potassium 4.3 mmol/L (3.5-5.1)
[2022-02-11 12:21] LABS: BUN/Creatinine Ratio 25.5
[2022-02-11 12:24] LABS: Bilirubin, Total 0.6 mg/dL (0.2-1.0); Total Protein 5.8 g/dL (6.4-8.2)
[2022-02-11] MEDS: fentaNYL Drip 2500mCg/250mlNS 250 ML IV SCH (12:50)
[2022-02-11] MEDS ORDERED: NITROGLYCERIN 0.4 MG SL TAB SL PRN (13:45)
[2022-02-11] MEDS: SODIUM CHLORIDE 0.9% 1,000 ML IV SCH ×2 (17:36→22:05)
[2022-02-11 21:33] LABS: Protein, Urine 209.6 mg/dL (0.0-11.9)
[2022-02-11] MEDS: PANTOPRAZOLE 40 MG/10 ML VIAL INJ IV SCH (22:30)
[2022-02-12] VITALS (100 sets, daily range): BP systolic 94–134; BP diastolic 39–62
[2022-02-12] MEDS: MIDAZOLAM DRIP 50 mg/50mL 50 ML IV SCH ×8 (03:30→23:45)
[2022-02-12 05:20] LABS: Basophils # (auto) 0.1 10 ^3/uL (0-0.2); Basophils % (auto) 0.5 % (0.0-2.0); Eosinophils # (auto) 0 10 ^3/uL (0-0.8); Eosinophils % (auto) 0.2 % (0.0-7.0); Hematocrit 29.2 % (36.0-46.0); Hemoglobin 9.7 g/dL (12.2-16.2); Lymphocytes # (auto) 1.5 10 ^3/uL (0.4-5.4); Lymphocytes % (auto) 8.6 % (10.0-50.0); Mean Corpuscular Hemoglobin 30.4 pg (28.0-32.0); Mean Corpuscular Hgb Conc. 33.2 g/dL (32.0-36.0); Mean Corpuscular Volume 91.6 fL (80.0-100.0); Monocytes # (auto) 1.8 10 ^3/uL (0-1.3); Monocytes % (auto) 10.3 % (0.0-12.0); Neutrophils # (auto) 14.2 10 ^3/uL (1.6-8.6); Neutrophils % (auto) 80.4 % (37.0-80.0); Red Blood Cells 3.19 10^6/uL (4.0-5.20); Red Cell Distribution Width 14.7 % (11.8-14.3); White Blood Cell 17.7 10^3/uL (4.4-10.8)
[2022-02-12 05:36] LABS: Potassium 3.8 mmol/L (3.5-5.1)
[2022-02-12 05:40] LABS: Albumin 2.4 g/dL (3.4-5.0); BUN/Creatinine Ratio 22.8; Calcium 8.2 mg/dL (8.5-10.1)
[2022-02-12 05:43] LABS: Bilirubin, Total 0.3 mg/dL (0.2-1.0); Total Protein 5.1 g/dL (6.4-8.2)
[2022-02-12] MEDS: SODIUM CHLORIDE 0.9% 1,000 ML IV SCH (06:25)
[2022-02-12] MEDS: NOREPINEPHRINE 8 MG/250ML KIT 250 ML IV SCH (08:15)
[2022-02-12] MEDS: cefTRIAXone 1GM/50ML D5W 50 ML IV SCH (09:01)
[2022-02-12] MEDS: AZITHROMYCIN 500MG/ 250ML 250 ML IV SCH (09:50)
[2022-02-12] MEDS: PANTOPRAZOLE 40 MG/10 ML VIAL INJ IV SCH (09:50)
[2022-02-12] MEDS: ENOXAPARIN SOD 40 MG/0.4 ML SYRINGE SC SCH (09:52)
[2022-02-12] MEDS: DOPamine 1600MCG/ML D5W 250 ML IV SCH (11:58)
[2022-02-12] MEDS: fentaNYL Drip 2500mCg/250mlNS 250 ML IV SCH (12:30)
[2022-02-12] MEDS ORDERED: methylPREDNISolone SOD SUCC 40 MG/ML VL IV ONE (12:45)
[2022-02-12] MEDS ORDERED: Jevity 1.2 Cal/Fiber 1 Liter GT SCH (12:45)
[2022-02-12] MEDS: CLINDAMYCIN 600MG IV 50 ML IV SCH ×2 (17:25→21:33)
[2022-02-12] MEDS: IPRATROPIUM BROM 0.5 MG/2.5ML INH SOL NEB SCH ×2 (17:58→23:15)
[2022-02-12] MEDS: ALBUTEROL SULF 2.5 MG/0.5ML(0.5%) NEB SOLN NEB SCH ×2 (17:58→23:16)
[2022-02-12] MEDS ORDERED: Glucerna 1.2 Cal 1Liter BOTTLE GT SCH (19:15)
[2022-02-12] MEDS: methylPREDNISolone SOD SUCC 40 MG/ML VL IV SCH (21:33)
[2022-02-13] VITALS (98 sets, daily range): BP systolic 97–137; BP diastolic 36–53
[2022-02-13] MEDS: DOPamine 1600MCG/ML D5W 250 ML IV SCH ×2 (01:57→15:56)
[2022-02-13] MEDS: MIDAZOLAM DRIP 50 mg/50mL 50 ML IV SCH ×7 (03:05→23:05)
[2022-02-13 04:24] LABS: Hematocrit 29.3 % (36.0-46.0); Hemoglobin 9.5 g/dL (12.2-16.2); Mean Corpuscular Hgb Conc. 32.5 g/dL (32.0-36.0); Mean Corpuscular Volume 92.3 fL (80.0-100.0); Red Blood Cells 3.17 10^6/uL (4.0-5.20); Red Cell Distribution Width 14.5 % (11.8-14.3); White Blood Cell 12.2 10^3/uL (4.4-10.8)
[2022-02-13 04:27] LABS: Basophils % (manual) 0 (0.0-2.0); Blast Cells 0; Eosinophils % (manual) 0 (0-7); Metamyelocytes % 0; Myelocytes % 0; Promyelocytes % 0; Reactive Lymphocytes 0
[2022-02-13 04:48] LABS: BUN/Creatinine Ratio 21.2; Calcium 8.5 mg/dL (8.5-10.1); Potassium 3.9 mmol/L (3.5-5.1)
[2022-02-13 05:40] LABS: Band Neutrophils % (manual) 4; Lymphocytes % (manual) 1 (10.0-50.0); Monocytes % (manual) 1 (0-12)
[2022-02-13] MEDS: IPRATROPIUM BROM 0.5 MG/2.5ML INH SOL NEB SCH ×4 (05:58→23:39)
[2022-02-13] MEDS: ALBUTEROL SULF 2.5 MG/0.5ML(0.5%) NEB SOLN NEB SCH ×4 (05:58→23:39)
[2022-02-13] MEDS: CLINDAMYCIN 600MG IV 50 ML IV SCH ×3 (06:22→21:47)
[2022-02-13] MEDS: NOREPINEPHRINE 8 MG/250ML KIT 250 ML IV SCH (08:15)
[2022-02-13] MEDS: cefTRIAXone 1GM/50ML D5W 50 ML IV SCH (10:38)
[2022-02-13] MEDS: methylPREDNISolone SOD SUCC 40 MG/ML VL IV SCH ×2 (10:38→21:47)
[2022-02-13] MEDS: PANTOPRAZOLE 40 MG/10 ML VIAL INJ IV SCH (10:38)
[2022-02-13] MEDS: ENOXAPARIN SOD 40 MG/0.4 ML SYRINGE SC SCH (10:39)
[2022-02-13] MEDS: AZITHROMYCIN 500MG/ 250ML 250 ML IV SCH (11:22)
[2022-02-13] MEDS: fentaNYL Drip 2500mCg/250mlNS 250 ML IV SCH (12:35)
[2022-02-14] VITALS (95 sets, daily range): BP systolic 96–183; BP diastolic 39–87
[2022-02-14 03:42] LABS: Basophils # (auto) 0 10 ^3/uL (0-0.2); Basophils % (auto) 0.1 % (0.0-2.0); Eosinophils # (auto) 0 10 ^3/uL (0-0.8); Hemoglobin 9.1 g/dL (12.2-16.2); Lymphocytes # (auto) 0.3 10 ^3/uL (0.4-5.4); Lymphocytes % (auto) 3.2 % (10.0-50.0); Monocytes # (auto) 0.5 10 ^3/uL (0-1.3); Neutrophils # (auto) 8.7 10 ^3/uL (1.6-8.6); Neutrophils % (auto) 91.7 % (37.0-80.0); Nucleated Red Blood Cells % 0.2 %; Red Blood Cells 2.93 10^6/uL (4.0-5.20); White Blood Cell 9.5 10^3/uL (4.4-10.8)
[2022-02-14 03:43] LABS: Hematocrit 26.9 % (36.0-46.0); Mean Corpuscular Hgb Conc. 33.8 g/dL (32.0-36.0); Mean Corpuscular Volume 91.9 fL (80.0-100.0); Red Cell Distribution Width 14.9 % (11.8-14.3)
[2022-02-14] MEDS: MIDAZOLAM DRIP 50 mg/50mL 50 ML IV SCH ×4 (03:53→21:38)
[2022-02-14 03:54] LABS: BUN/Creatinine Ratio 24.6; Calcium 9.1 mg/dL (8.5-10.1); Potassium 3.7 mmol/L (3.5-5.1)
[2022-02-14] MEDS: DOPamine 1600MCG/ML D5W 250 ML IV SCH (05:17)
[2022-02-14] MEDS: CLINDAMYCIN 600MG IV 50 ML IV SCH ×3 (05:19→21:59)
[2022-02-14] MEDS: IPRATROPIUM BROM 0.5 MG/2.5ML INH SOL NEB SCH ×3 (05:54→18:10)
[2022-02-14] MEDS: ALBUTEROL SULF 2.5 MG/0.5ML(0.5%) NEB SOLN NEB SCH ×3 (05:54→18:10)
[2022-02-14] MEDS: NOREPINEPHRINE 8 MG/250ML KIT 250 ML IV SCH (08:15)
[2022-02-14] MEDS: cefTRIAXone 1GM/50ML D5W 50 ML IV SCH (09:15)
[2022-02-14] MEDS: hydrALAZINE HCL 20 MG/ML VL IV PRN (09:47)
[2022-02-14] MEDS: PANTOPRAZOLE 40 MG/10 ML VIAL INJ IV SCH ×2 (10:45→21:58)
[2022-02-14] MEDS: AZITHROMYCIN 500MG/ 250ML 250 ML IV SCH (10:45)
[2022-02-14] MEDS: methylPREDNISolone SOD SUCC 40 MG/ML VL IV SCH ×2 (10:45→21:58)
[2022-02-14] MEDS: ENOXAPARIN SOD 40 MG/0.4 ML SYRINGE SC SCH (10:52)
[2022-02-14] MEDS: fentaNYL Drip 2500mCg/250mlNS 250 ML IV SCH (11:51)
[2022-02-14] MEDS: PROPOFOL 100 ML IV SCH (17:17)
[2022-02-15] VITALS (78 sets, daily range): BP systolic 87–209; BP diastolic 35–90
[2022-02-15] MEDS: IPRATROPIUM BROM 0.5 MG/2.5ML INH SOL NEB SCH ×5 (00:08→23:01)
[2022-02-15] MEDS: ALBUTEROL SULF 2.5 MG/0.5ML(0.5%) NEB SOLN NEB SCH ×5 (00:08→23:01)
[2022-02-15] MEDS: fentaNYL Drip 2500mCg/250mlNS 250 ML IV SCH (03:40)
[2022-02-15 04:18] LABS: Basophils # (auto) 0.1 10 ^3/uL (0-0.2); Basophils % (auto) 0.6 % (0.0-2.0); Eosinophils # (auto) 0 10 ^3/uL (0-0.8); Hematocrit 30.5 % (36.0-46.0); Hemoglobin 10.1 g/dL (12.2-16.2); Lymphocytes # (auto) 0.5 10 ^3/uL (0.4-5.4); Lymphocytes % (auto) 4.9 % (10.0-50.0); Mean Corpuscular Hemoglobin 30.4 pg (28.0-32.0); Mean Corpuscular Hgb Conc. 33.1 g/dL (32.0-36.0); Mean Corpuscular Volume 91.6 fL (80.0-100.0); Monocytes # (auto) 0.3 10 ^3/uL (0-1.3); Monocytes % (auto) 3.3 % (0.0-12.0); Neutrophils # (auto) 9.5 10 ^3/uL (1.6-8.6); Neutrophils % (auto) 91.2 % (37.0-80.0); Nucleated Red Blood Cells % 0.5 %; Red Blood Cells 3.32 10^6/uL (4.0-5.20); Red Cell Distribution Width 14.9 % (11.8-14.3); White Blood Cell 10.4 10^3/uL (4.4-10.8)
[2022-02-15 04:35] LABS: BUN/Creatinine Ratio 28.3; Calcium 9.3 mg/dL (8.5-10.1); Potassium 3.9 mmol/L (3.5-5.1)
[2022-02-15] MEDS: hydrALAZINE HCL 20 MG/ML VL IV PRN ×2 (04:48→14:04)
[2022-02-15] MEDS: MIDAZOLAM DRIP 50 mg/50mL 50 ML IV SCH ×4 (05:13→15:05)
[2022-02-15] MEDS: CLINDAMYCIN 600MG IV 50 ML IV SCH ×3 (05:23→21:48)
[2022-02-15] MEDS ORDERED: DEXTROSE (50%) 50ML SYRG IV PRN (05:45)
[2022-02-15] MEDS: PROPOFOL 100 ML IV SCH ×2 (06:28→13:16)
[2022-02-15] MEDS: InsuLIN REG 1unit/0.01ml Soln (100units/ml) SC SCH ×4 (06:28→22:00)
[2022-02-15] MEDS: ACCU-CHEK COMFORT CURVE STRIP VI SCH ×4 (06:28→22:00)
[2022-02-15] MEDS: NOREPINEPHRINE 8 MG/250ML KIT 250 ML IV SCH (08:15)
[2022-02-15] MEDS: AZITHROMYCIN 500MG/ 250ML 250 ML IV SCH (09:33)
[2022-02-15] MEDS: PANTOPRAZOLE 40 MG/10 ML VIAL INJ IV SCH ×2 (09:33→21:48)
[2022-02-15] MEDS: methylPREDNISolone SOD SUCC 40 MG/ML VL IV SCH ×2 (09:34→21:48)
[2022-02-15] MEDS: cefTRIAXone 1GM/50ML D5W 50 ML IV SCH (09:35)
[2022-02-15] MEDS ORDERED: METOPROLOL TARTRATE 50 MG TAB PO SCH (10:00)
[2022-02-15] MEDS ORDERED: amLODIPine BESYLATE 5 MG TAB PO SCH (10:00)
[2022-02-15] MEDS ORDERED: SERTRALINE HCL 50 MG TAB PO ONE (12:45)
[2022-02-15] MEDS ORDERED: FUROSEMIDE 40 MG/4 ML VIAL IV ONE (13:00)
[2022-02-15] MEDS: LABETALOL HCL 5 MG/ML 4ML SYRINGE IV PRN (13:31)
[2022-02-15] MEDS ORDERED: NITROGLYCERIN 2% OINT 1GM PKG TD ONE (16:30)
[2022-02-15] MEDS ORDERED: EPINEPHrine HCL 0.5 ML NEB ONE (16:40)
[2022-02-15] MEDS ORDERED: EPINEPHrine HCL 0.5 ML NEB NEB ONE (16:45)
[2022-02-16] VITALS (26 sets, daily range): BP systolic 137–178; BP diastolic 52–72
[2022-02-16 05:14] LABS: Basophils # (auto) 0 10 ^3/uL (0-0.2); Basophils % (auto) 0.4 % (0.0-2.0); Eosinophils # (auto) 0 10 ^3/uL (0-0.8); Hematocrit 30.4 % (36.0-46.0); Hemoglobin 10.1 g/dL (12.2-16.2); Lymphocytes # (auto) 0.9 10 ^3/uL (0.4-5.4); Lymphocytes % (auto) 8.5 % (10.0-50.0); Mean Corpuscular Hgb Conc. 33.1 g/dL (32.0-36.0); Mean Corpuscular Volume 90.4 fL (80.0-100.0); Monocytes # (auto) 0.7 10 ^3/uL (0-1.3); Neutrophils # (auto) 8.5 10 ^3/uL (1.6-8.6); Neutrophils % (auto) 84.1 % (37.0-80.0); Nucleated Red Blood Cells % 0.1 %; Red Blood Cells 3.36 10^6/uL (4.0-5.20); Red Cell Distribution Width 15.1 % (11.8-14.3); White Blood Cell 10.1 10^3/uL (4.4-10.8)
[2022-02-16 05:29] LABS: BUN/Creatinine Ratio 25.4; Calcium 9.3 mg/dL (8.5-10.1); Potassium 3.6 mmol/L (3.5-5.1)
[2022-02-16] MEDS: IPRATROPIUM BROM 0.5 MG/2.5ML INH SOL NEB SCH ×3 (05:49→18:43)
[2022-02-16] MEDS: ALBUTEROL SULF 2.5 MG/0.5ML(0.5%) NEB SOLN NEB SCH ×3 (05:49→18:43)
[2022-02-16] MEDS: CLINDAMYCIN 600MG IV 50 ML IV SCH ×3 (05:55→23:04)
[2022-02-16] MEDS: ACCU-CHEK COMFORT CURVE STRIP VI SCH ×4 (05:55→23:14)
[2022-02-16] MEDS: InsuLIN REG 1unit/0.01ml Soln (100units/ml) SC SCH ×4 (05:56→23:45)
[2022-02-16] MEDS: HYDROcodone-ACET 5/325MG TAB PO PRN (06:57)
[2022-02-16] MEDS: cefTRIAXone 1GM/50ML D5W 50 ML IV SCH (08:15)
[2022-02-16] MEDS: SERTRALINE HCL 50 MG TAB PO SCH (09:20)
[2022-02-16] MEDS: amLODIPine BESYLATE 5 MG TAB PO SCH (09:20)
[2022-02-16] MEDS: PANTOPRAZOLE 40 MG/10 ML VIAL INJ IV SCH ×2 (09:20→23:06)
[2022-02-16] MEDS: methylPREDNISolone SOD SUCC 40 MG/ML VL IV SCH ×2 (09:21→23:06)
[2022-02-16] MEDS: AZITHROMYCIN 500MG/ 250ML 250 ML IV SCH (09:21)
[2022-02-16] MEDS: GABAPENTIN 300 MG CAP PO SCH ×2 (11:17→23:07)
[2022-02-16] MEDS: MORPHINE SULFATE INJECTION 2 MG/ML SYRG IV PRN ×3 (11:17→23:07)
[2022-02-16] MEDS: ENALAPRIL MALEATE 2.5 MG TAB PO SCH (12:28)
[2022-02-17] VITALS (23 sets, daily range): BP systolic 131–175; BP diastolic 55–76
[2022-02-17] MEDS: ALBUTEROL SULF 2.5 MG/0.5ML(0.5%) NEB SOLN NEB SCH ×5 (00:35→23:46)
[2022-02-17] MEDS: IPRATROPIUM BROM 0.5 MG/2.5ML INH SOL NEB SCH ×5 (00:35→23:46)
[2022-02-17] MEDS: HYDROcodone-ACET 5/325MG TAB PO PRN ×2 (02:30→11:48)
[2022-02-17] MEDS: MORPHINE SULFATE INJECTION 2 MG/ML SYRG IV PRN ×5 (03:38→20:23)
[2022-02-17 04:18] LABS: Albumin 2.6 g/dL (3.4-5.0); Magnesium 2.1 mg/dL (1.6-2.6); Potassium 4.2 mmol/L (3.5-5.1)
[2022-02-17 04:22] LABS: BUN/Creatinine Ratio 23.1; Bilirubin, Total 0.2 mg/dL (0.2-1.0); Total Protein 5.6 g/dL (6.4-8.2)
[2022-02-17] MEDS: CLINDAMYCIN 600MG IV 50 ML IV SCH ×3 (05:27→21:50)
[2022-02-17] MEDS: ACCU-CHEK COMFORT CURVE STRIP VI SCH ×4 (05:30→21:54)
[2022-02-17] MEDS: InsuLIN REG 1unit/0.01ml Soln (100units/ml) SC SCH ×4 (05:34→22:07)
[2022-02-17] MEDS: cefTRIAXone 1GM/50ML D5W 50 ML IV SCH (08:46)
[2022-02-17] MEDS: GABAPENTIN 300 MG CAP PO SCH ×2 (09:52→21:54)
[2022-02-17] MEDS: PANTOPRAZOLE 40 MG/10 ML VIAL INJ IV SCH ×2 (09:52→21:54)
[2022-02-17] MEDS: methylPREDNISolone SOD SUCC 40 MG/ML VL IV SCH ×2 (09:52→21:53)
[2022-02-17] MEDS: amLODIPine BESYLATE 5 MG TAB PO SCH (09:52)
[2022-02-17] MEDS: AZITHROMYCIN 500MG/ 250ML 250 ML IV SCH (09:52)
[2022-02-17] MEDS: SERTRALINE HCL 50 MG TAB PO SCH (09:53)
[2022-02-17] MEDS: ENALAPRIL MALEATE 2.5 MG TAB PO SCH (09:53)
[2022-02-17] MEDS: LABETALOL HCL 5 MG/ML 4ML SYRINGE IV PRN (11:48)
[2022-02-17] MEDS ORDERED: HYDROcodone-ACET 5/325MG TAB PO PRN (12:15)
[2022-02-18] VITALS (14 sets, daily range): BP systolic 115–173; BP diastolic 52–78
[2022-02-18] MEDS: MORPHINE SULFATE INJECTION 2 MG/ML SYRG IV PRN ×5 (03:21→20:01)
[2022-02-18] MEDS: LABETALOL HCL 5 MG/ML 4ML SYRINGE IV PRN (05:24)
[2022-02-18] MEDS: CLINDAMYCIN 600MG IV 50 ML IV SCH ×3 (05:51→21:49)
[2022-02-18] MEDS: ALBUTEROL SULF 2.5 MG/0.5ML(0.5%) NEB SOLN NEB SCH ×3 (06:51→18:47)
[2022-02-18] MEDS: IPRATROPIUM BROM 0.5 MG/2.5ML INH SOL NEB SCH ×3 (06:51→18:47)
[2022-02-18] MEDS: InsuLIN REG 1unit/0.01ml Soln (100units/ml) SC SCH ×4 (07:00→22:36)
[2022-02-18] MEDS: ACCU-CHEK COMFORT CURVE STRIP VI SCH ×4 (07:19→21:49)
[2022-02-18] MEDS: cefTRIAXone 1GM/50ML D5W 50 ML IV SCH (08:57)
[2022-02-18] MEDS: PANTOPRAZOLE 40 MG/10 ML VIAL INJ IV SCH (10:01)
[2022-02-18] MEDS: AZITHROMYCIN 500MG/ 250ML 250 ML IV SCH (10:01)
[2022-02-18] MEDS: methylPREDNISolone SOD SUCC 40 MG/ML VL IV SCH ×2 (10:01→21:49)
[2022-02-18] MEDS: GABAPENTIN 300 MG CAP PO SCH ×2 (10:02→21:49)
[2022-02-18] MEDS: ENALAPRIL MALEATE 2.5 MG TAB PO SCH (10:02)
[2022-02-18] MEDS: amLODIPine BESYLATE 5 MG TAB PO SCH (10:02)
[2022-02-18] MEDS: SERTRALINE HCL 50 MG TAB PO SCH (10:02)
[2022-02-18] MEDS ORDERED: ENALAPRIL MALEATE 2.5 MG TAB PO ONE (12:45)
[2022-02-19] MEDS: MORPHINE SULFATE INJECTION 2 MG/ML SYRG IV PRN ×6 (00:06→21:30)
[2022-02-19] MEDS: IPRATROPIUM BROM 0.5 MG/2.5ML INH SOL NEB SCH ×4 (00:16→19:05)
[2022-02-19] MEDS: ALBUTEROL SULF 2.5 MG/0.5ML(0.5%) NEB SOLN NEB SCH ×4 (00:16→19:05)
[2022-02-19] MEDS: CLINDAMYCIN 600MG IV 50 ML IV SCH (05:43)
[2022-02-19 06:00] VITALS: BP 145/71
[2022-02-19] MEDS: ACCU-CHEK COMFORT CURVE STRIP VI SCH ×4 (06:11→21:45)
[2022-02-19 06:13] LABS: Basophils # (auto) 0 10 ^3/uL (0-0.2); Basophils % (auto) 0.2 % (0.0-2.0); Eosinophils # (auto) 0 10 ^3/uL (0-0.8); Hematocrit 31.3 % (36.0-46.0); Hemoglobin 10.3 g/dL (12.2-16.2); Lymphocytes % (auto) 6.4 % (10.0-50.0); Mean Corpuscular Hemoglobin 30.4 pg (28.0-32.0); Mean Corpuscular Hgb Conc. 32.8 g/dL (32.0-36.0); Mean Corpuscular Volume 92.7 fL (80.0-100.0); Monocytes # (auto) 0.5 10 ^3/uL (0-1.3); Neutrophils # (auto) 13.7 10 ^3/uL (1.6-8.6); Neutrophils % (auto) 90.4 % (37.0-80.0); Red Blood Cells 3.38 10^6/uL (4.0-5.20); Red Cell Distribution Width 15.2 % (11.8-14.3); White Blood Cell 15.2 10^3/uL (4.4-10.8)
[2022-02-19] MEDS: InsuLIN REG 1unit/0.01ml Soln (100units/ml) SC SCH ×4 (06:13→22:00)
[2022-02-19 06:22] LABS: Potassium 5.3 mmol/L (3.5-5.1)
[2022-02-19 06:35] LABS: Albumin 2.5 g/dL (3.4-5.0); BUN/Creatinine Ratio 24.5; Bilirubin, Total 0.1 mg/dL (0.2-1.0); Calcium 9.5 mg/dL (8.5-10.1); Total Protein 5.3 g/dL (6.4-8.2)
[2022-02-19] MEDS: cefTRIAXone 1GM/50ML D5W 50 ML IV SCH (09:04)
[2022-02-19] MEDS: methylPREDNISolone SOD SUCC 40 MG/ML VL IV SCH (09:06)
[2022-02-19] MEDS: GABAPENTIN 300 MG CAP PO SCH ×2 (09:06→21:45)
[2022-02-19] MEDS: AZITHROMYCIN 250 MG TAB PO SCH (09:08)
[2022-02-19] MEDS: amLODIPine BESYLATE 5 MG TAB PO SCH (09:09)
[2022-02-19] MEDS: PANTOPRAZOLE 40 MG TAB PO SCH (09:09)
[2022-02-19] MEDS: SERTRALINE HCL 50 MG TAB PO SCH (09:09)
[2022-02-19] MEDS: LABETALOL HCL 200 MG TAB PO SCH ×2 (09:12→21:45)
[2022-02-19] MEDS ORDERED: ENALAPRIL MALEATE 10 MG TAB PO SCH (10:00)
[2022-02-19] MEDS: CLINDAMYCIN HCL 150 MG CAP PO SCH ×2 (17:42→21:44)
[2022-02-19 22:00] VITALS: BP 157/73
[2022-02-20] MEDS: IPRATROPIUM BROM 0.5 MG/2.5ML INH SOL NEB SCH ×2 (00:02→07:27)
[2022-02-20] MEDS: ALBUTEROL SULF 2.5 MG/0.5ML(0.5%) NEB SOLN NEB SCH ×2 (00:02→07:27)
[2022-02-20] MEDS: MORPHINE SULFATE INJECTION 2 MG/ML SYRG IV PRN ×3 (03:05→12:03)
[2022-02-20 05:00] VITALS: BP 123/51
[2022-02-20] MEDS: ACCU-CHEK COMFORT CURVE STRIP VI SCH ×2 (05:44→11:30)
[2022-02-20] MEDS: CLINDAMYCIN HCL 150 MG CAP PO SCH (05:44)
[2022-02-20] MEDS: InsuLIN REG 1unit/0.01ml Soln (100units/ml) SC SCH ×2 (05:51→11:30)
[2022-02-20 07:04] LABS: BUN/Creatinine Ratio 28.6; Calcium 9.4 mg/dL (8.5-10.1); Potassium 4.6 mmol/L (3.5-5.1)
[2022-02-20 09:00] VITALS: BP_SYST 117; BP_SYST 151; BP_DIAS 63; BP_DIAS 64
[2022-02-20] MEDS: cefTRIAXone 1GM/50ML D5W 50 ML IV SCH (09:39)
[2022-02-20] MEDS: GABAPENTIN 300 MG CAP PO SCH (09:41)
[2022-02-20] MEDS: LABETALOL HCL 200 MG TAB PO SCH (09:42)
[2022-02-20] MEDS: PANTOPRAZOLE 40 MG TAB PO SCH (09:43)
[2022-02-20] MEDS: amLODIPine BESYLATE 5 MG TAB PO SCH (09:43)
[2022-02-20] MEDS: AZITHROMYCIN 250 MG TAB PO SCH (09:43)
[2022-02-20] MEDS: SERTRALINE HCL 50 MG TAB PO SCH (09:44)
[2022-02-20] MEDS ORDERED: predniSONE 20 MG TAB PO SCH (10:00)
[2022-02-20 12:09] VITALS: BP 151/85
[2022-02-20 13:00] VITALS: BP 149/70
== END 2022-02-20 12:40 | DRG 870 ==
LOC: ER 07:01 → EDBD 07:01 → TELE 13:35 → ICU WEST 14:51 → TELE-WESTW 02-18 15:46
PROVIDERS: ADMIT Internal Medicine; ATTEND Internal Medicine
PROC: 5A1955Z Respiratory Ventilation, Greater than 96 Consecutive Hours (ICD-10-PCS; principal; 2022-02-11)
PROC: 0BH17EZ Insertion of Endotracheal Airway into Trachea, Via Natural or Artificial Opening (ICD-10-PCS; 2022-02-11)
PROC: 06HM33Z Insertion of Infusion Device into Right Femoral Vein, Percutaneous Approach (ICD-10-PCS; 2022-02-11)
DX: A41.9 Sepsis, unspecified organism (principal); J96.01 Acute respiratory failure with hypoxia; R65.21 Severe sepsis with septic shock; J18.9 Pneumonia, unspecified organism; N17.0 Acute kidney failure with tubular necrosis; I21.A1 Myocardial infarction type 2; J96.02 Acute respiratory failure with hypercapnia; J44.1 Chronic obstructive pulmonary disease with (acute) exacerbation; J44.0 Chronic obstructive pulmonary disease with (acute) lower respiratory infection; I13.0 Hypertensive heart and chronic kidney disease with heart failure and stage 1 through stage 4 chronic kidney disease, or unspecified chronic kidney disease; Z99.11 Dependence on respirator [ventilator] status; D64.9 Anemia, unspecified; E88.09 Other disorders of plasma-protein metabolism, not elsewhere classified; N18.9 Chronic kidney disease, unspecified; F32.A Depression, unspecified; G62.9 Polyneuropathy, unspecified; G89.29 Other chronic pain; F41.9 Anxiety disorder, unspecified; G43.909 Migraine, unspecified, not intractable, without status migrainosus; Z20.822 Contact with and (suspected) exposure to COVID-19; K57.90 Diverticulosis of intestine, part unspecified, without perforation or abscess without bleeding; E87.5 Hyperkalemia; E11.22 Type 2 diabetes mellitus with diabetic chronic kidney disease; E78.5 Hyperlipidemia, unspecified; F17.210 Nicotine dependence, cigarettes, uncomplicated; I25.10 Atherosclerotic heart disease of native coronary artery without angina pectoris; I50.9 Heart failure, unspecified; K43.9 Ventral hernia without obstruction or gangrene; Z79.84 Long term (current) use of oral hypoglycemic drugs; Z79.899 Other long term (current) drug therapy; Z80.0 Family history of malignant neoplasm of digestive organs; Z82.3 Family history of stroke; Z82.49 Family history of ischemic heart disease and other diseases of the circulatory system; Z83.3 Family history of diabetes mellitus; Z85.038 Personal history of other malignant neoplasm of large intestine; Z90.49 Acquired absence of other specified parts of digestive tract; Z88.1 Allergy status to other antibiotic agents; Z88.0 Allergy status to penicillin; Z88.2 Allergy status to sulfonamides; Z88.8 Allergy status to other drugs, medicaments and biological substances
CPT/HCPCS: 31500; 36415; 36556; 36600; 51702; 70450; 71045; 71275; 74176; 80048; 80053; 80061; 81001; 82140; 82306; 82570; 82805; 82962; 83036; 83605; 83690; 83735; 83880; 84156; 84443; 84484; 85007; 85025; 85027; 85610; 87040; 87070; 87081; 87205; 93005; 93306; 94002; 94003; 94640; 96365; 96368; 96375; 97110; 97116; 97163; 99291; A4618; C9113; G0378; J0330; J0696; J1815; J2250; J2704; J3490

== ENCOUNTER 2022-07-14 05:24 | Inpatient (IN) | payer MEDICARE ==
[~2022-07-14] VITALS: Ht 152.4 cm; Wt 63.5 kg
[2022-07-14 07:34] LABS: Albumin 3.2 g/dL (3.4-5.0); BUN/Creatinine Ratio 28.6; Calcium 8.9 mg/dL (8.5-10.1); Potassium 3.6 mmol/L (3.5-5.1)
[2022-07-14 07:37] LABS: Bilirubin, Total 0.2 mg/dL (0.2-1.0); Total Protein 6.2 g/dL (6.4-8.2)
[2022-07-14] MEDS ORDERED: ALBUTEROL SULF 2.5 MG/0.5ML(0.5%) NEB SOLN NEB ONE (07:45)
[2022-07-14] MEDS ORDERED: SODIUM CHLORIDE 0.9% 1,000 ML IV ONE (07:45)
[2022-07-14] MEDS ORDERED: IPRATROPIUM BROM 0.5 MG/2.5ML INH SOL NEB ONE (07:45)
[2022-07-14] MEDS ORDERED: methylPREDNISolone SOD SUCC 125 MG/2 ML VL IV ONE (07:45)
[2022-07-14 08:45] LABS: Basophils # (auto) 0.1 10 ^3/uL (0-0.2); Basophils % (auto) 0.4 % (0.0-2.0); Eosinophils # (auto) 0.3 10 ^3/uL (0-0.8); Eosinophils % (auto) 1.6 % (0.0-7.0); Hematocrit 40.6 % (36.0-46.0); Hemoglobin 12.6 g/dL (12.2-16.2); Lymphocytes # (auto) 3.6 10 ^3/uL (0.4-5.4); Mean Corpuscular Hemoglobin 27.7 pg (28.0-32.0); Mean Corpuscular Volume 89.3 fL (80.0-100.0); Monocytes # (auto) 1.8 10 ^3/uL (0-1.3); Monocytes % (auto) 8.7 % (0.0-12.0); Neutrophils # (auto) 15.3 10 ^3/uL (1.6-8.6); Neutrophils % (auto) 72.3 % (37.0-80.0); Red Blood Cells 4.54 10^6/uL (4.0-5.20); Red Cell Distribution Width 14.8 % (11.8-14.3); White Blood Cell 21.1 10^3/uL (4.4-10.8)
[2022-07-14] MEDS ORDERED: ACETAMINOPHEN 500 MG TAB PO ONE (10:00)
[2022-07-14] MEDS ORDERED: GABAPENTIN 300 MG CAP PO ONE (10:00)
[2022-07-14 11:59] LABS: Urine Bacteria MOD /hpf (None Seen); Urine Blood 2+ /uL (Negative); Urine Specific Gravity 1.016 (1.001-1.035); Urine WBC 93 /hpf (0 - 5)
[2022-07-14] MEDS ORDERED: cefTRIAXone 1GM/50ML D5W 50 ML IV ONE (13:45)
[2022-07-14] MEDS ORDERED: AZITHROMYCIN 500MG/ 250ML 250 ML IV ONE ×2 (13:45→14:00)
[2022-07-14] MEDS ORDERED: TEMAZEPAM 15 MG CAP PO PRN (14:00)
[2022-07-14] MEDS ORDERED: DOCUSATE SOD 100 MG CAP PO PRN (14:00)
[2022-07-14] MEDS ORDERED: NITROGLYCERIN 0.4 MG SL TAB SL PRN (14:00)
[2022-07-14] MEDS ORDERED: ACETAMINOPHEN 325 MG TAB PO PRN (14:00)
[2022-07-14] MEDS ORDERED: MORPHINE SULFATE INJ 2 MG/ml SYRG IV PRN (14:00)
[2022-07-14] MEDS ORDERED: ONDANSETRON HCL 4 MG/2 ML VIAL IV PRN (14:00)
[2022-07-14 17:45] VITALS: BP 146/71
[2022-07-14] MEDS ORDERED: METO-289 PO (17:57)
[2022-07-14] MEDS: HYDROcodone-ACET 5/325MG TAB PO PRN ×2 (18:04→22:26)
[2022-07-14] MEDS: IPRATROPIUM BROM 0.5 MG/2.5ML INH SOL NEB SCH ×2 (18:29→23:59)
[2022-07-14] MEDS: ALBUTEROL SULF 2.5 MG/0.5ML(0.5%) NEB SOLN NEB PRN ×2 (18:29→23:59)
[2022-07-14] MEDS: MORPHINE SULFATE INJ 2 MG/ml SYRG IV PRN (20:11)
[2022-07-14] MEDS: hydrALAZINE HCL 20 MG/ML VL IV PRN (21:23)
[2022-07-14] MEDS: methylPREDNISolone SOD SUCC 40 MG/ML VL IV SCH (21:23)
[2022-07-14 22:00] VITALS: BP 172/77
[2022-07-15] MEDS: MORPHINE SULFATE INJ 2 MG/ml SYRG IV PRN ×3 (00:56→13:35)
[2022-07-15] MEDS: HYDROcodone-ACET 5/325MG TAB PO PRN (03:20)
[2022-07-15] MEDS: hydrALAZINE HCL 20 MG/ML VL IV PRN (04:19)
[2022-07-15 05:00] VITALS: BP 176/63
[2022-07-15] MEDS: methylPREDNISolone SOD SUCC 40 MG/ML VL IV SCH ×2 (05:22→13:32)
[2022-07-15] MEDS ORDERED: GABAPENTIN 300 MG CAP PO SCH ×2 (06:00→11:00)
[2022-07-15] MEDS: IPRATROPIUM BROM 0.5 MG/2.5ML INH SOL NEB SCH ×2 (06:32→10:55)
[2022-07-15] MEDS: ALBUTEROL SULF 2.5 MG/0.5ML(0.5%) NEB SOLN NEB PRN ×2 (06:32→10:55)
[2022-07-15 06:33] LABS: Hematocrit 34.6 % (36.0-46.0); Hemoglobin 10.8 g/dL (12.2-16.2); Mean Corpuscular Hemoglobin 28.1 pg (28.0-32.0); Mean Corpuscular Hgb Conc. 31.2 g/dL (32.0-36.0); Mean Corpuscular Volume 90.1 fL (80.0-100.0); Red Blood Cells 3.84 10^6/uL (4.0-5.20); Red Cell Distribution Width 14.9 % (11.8-14.3)
[2022-07-15 06:36] LABS: Albumin 2.9 g/dL (3.4-5.0); BUN/Creatinine Ratio 26.4; Bilirubin, Total 0.1 mg/dL (0.2-1.0); Calcium 8.8 mg/dL (8.5-10.1); Total Protein 5.2 g/dL (6.4-8.2)
[2022-07-15 06:48] LABS: Band Neutrophils % (manual) 0; Basophils % (manual) 0 (0.0-2.0); Blast Cells 0; Eosinophils % (manual) 0 (0-7); Promyelocytes % 0; Reactive Lymphocytes 0
[2022-07-15 09:00] VITALS: BP 164/65
[2022-07-15] MEDS ORDERED: amLODIPine BESYLATE 5 MG TAB PO SCH (10:00)
[2022-07-15] MEDS ORDERED: FUROSEMIDE 40 MG TAB PO SCH (10:00)
[2022-07-15] MEDS ORDERED: ENALAPRIL MALEATE 2.5 MG TAB PO SCH (10:00)
[2022-07-15] MEDS ORDERED: ENOXAPARIN SOD 40 MG/0.4 ML SYRINGE SC SCH (10:00)
[2022-07-15] MEDS ORDERED: LUBIPROSTONE 24 MCG PO SCH (10:00)
[2022-07-15] MEDS ORDERED: metFORMIN HYDROCHLORIDE 500 MG TAB PO SCH (10:00)
[2022-07-15] MEDS ORDERED: AZITHROMYCIN 500MG/ 250ML 250 ML IV SCH (10:00)
[2022-07-15] MEDS: SERTRALINE HCL 50 MG TAB PO SCH ×2 (10:52→10:57)
[2022-07-15] MEDS ORDERED: hydrOXYzine 25 MG TAB or CAP PO PRN (12:30)
[2022-07-15 13:00] VITALS: BP 187/77
[2022-07-15] MEDS ORDERED: AZIT500T66 PO (13:02)
[2022-07-15] MEDS ORDERED: PRED20TA2 PO (13:06)
[2022-07-15] MEDS ORDERED: NICOTINE 14 MG/24HR TOPICAL PATCH TD ONE (14:00)
[2022-07-15] MEDS ORDERED: PIPERACILLIN-TAZOB 3.375GM 100 ML IV SCH (14:00)
[2022-07-15] MEDS ORDERED: RIOCIGUAT BASE 2.5 MG PO SCH (14:00)
[2022-07-15 14:14] LABS: Lymphocytes % (manual) 18 (10.0-50.0); Metamyelocytes % 1; Monocytes % (manual) 3 (0-12); Myelocytes % 1
[2022-07-15 14:32] VITALS: BP 164/65
[2022-07-15] MEDS ORDERED: METOPROLOL TARTRATE 50 MG TAB PO SCH (17:00)
[2022-07-15] MEDS ORDERED: PIPERACILLIN-TAZOB 2.25GM 50 ML IV SCH (18:00)
[2022-07-15] MEDS ORDERED: ATORVASTATIN 20 MG TAB PO SCH (22:00)
[2022-07-16] MEDS ORDERED: ENOXAPARIN SOD 30 MG/0.3 ML SYRINGE SC SCH (10:00)
[2022-07-16] MEDS ORDERED: GABAPENTIN 300 MG CAP PO SCH (10:00)
[2022-07-16] MEDS ORDERED: LOSARTAN POTASSIUM 50 MG TAB PO SCH (10:00)
[2022-07-16] MEDS ORDERED: NICOTINE 14 MG/24HR TOPICAL PATCH TD SCH (10:00)
== END 2022-07-15 15:15 | disposition home or self-care (01) | DRG 189 ==
LOC: EDBD 05:24 → ER 05:24 → TELE 14:02 → TELE-CENTR 17:34
PROVIDERS: ADMIT Nurse Practitioner; ATTEND Internal Medicine
DX: J96.21 Acute and chronic respiratory failure with hypoxia (principal); N17.0 Acute kidney failure with tubular necrosis; J44.1 Chronic obstructive pulmonary disease with (acute) exacerbation; N30.01 Acute cystitis with hematuria; E44.1 Mild protein-calorie malnutrition; I11.0 Hypertensive heart disease with heart failure; E11.21 Type 2 diabetes mellitus with diabetic nephropathy; E11.40 Type 2 diabetes mellitus with diabetic neuropathy, unspecified; E78.5 Hyperlipidemia, unspecified; F17.210 Nicotine dependence, cigarettes, uncomplicated; Z20.822 Contact with and (suspected) exposure to COVID-19; F32.A Depression, unspecified; F41.9 Anxiety disorder, unspecified; G47.30 Sleep apnea, unspecified; I50.9 Heart failure, unspecified; M19.90 Unspecified osteoarthritis, unspecified site; Z68.27 Body mass index [BMI] 27.0-27.9, adult; Z80.0 Family history of malignant neoplasm of digestive organs; Z82.3 Family history of stroke; Z82.49 Family history of ischemic heart disease and other diseases of the circulatory system; Z83.3 Family history of diabetes mellitus; Z79.84 Long term (current) use of oral hypoglycemic drugs
CPT/HCPCS: 36415; 71045; 80053; 81001; 83735; 83880; 84484; 85007; 85025; 85027; 87081; 93005; 94640; 96361; 96374; G0378; J0696; J2543

== ENCOUNTER 2022-08-06 21:06 | Inpatient (IN) | payer MEDICARE, OTHER ==
[~2022-08-06] VITALS: Ht 162.6 cm; Wt 58.5 kg
[~2022-08-06 21:06] MED LIST changes: +AZIT500T66 PO; -GABA300C10 PO; -METO-158 PO; +METO-289 PO; +PRED20TA2 PO
[2022-08-06] MEDS ORDERED: LORazepam 2MG/ML-1ML VIAL ONE (21:07)
[2022-08-06] MEDS ORDERED: MIDAZOLAM HCL 2MG/2ML 2ml VIAL (1mg/ml) ONE (21:11)
[2022-08-06] MEDS ORDERED: MIDAZOLAM DRIP 50 mg/50mL 50 ML IV ONE (21:13)
[2022-08-06] MEDS ORDERED: ETOMIDATE (2MG/ML) 20ML VIAL IV ONE (21:25)
[2022-08-06] MEDS ORDERED: ROCURONIUM 10MG/ML 10ML VIAL IV ONE (21:26)
[2022-08-06] MEDS ORDERED: SUCCINYLCHOLINE CHLORIDE 20 MG/ML 10ML VIAL IV ONE (21:30)
[2022-08-06 21:31] VITALS: BP 147/66
[2022-08-06] MEDS ORDERED: DexAMETHasone SOD PHOS 10MG/1ML VIAL INJ IM ONE (22:15)
[2022-08-06 22:43] VITALS: BP 101/38
[2022-08-06] MEDS: MIDAZOLAM DRIP 50 mg/50mL 50 ML IV SCH (22:45)
[2022-08-06] MEDS ORDERED: SODIUM BICARBONATE 8.4 % INJ 50ML VIAL IV ONE (23:00)
[2022-08-06] MEDS ORDERED: KETAMINE 50mg/ML 10ml Vial (500mg/10ml) IV ONE (23:00)
[2022-08-06 23:04] LABS: Basophils # (auto) 0.1 10 ^3/uL (0-0.2); Basophils % (auto) 0.4 % (0.0-2.0); Eosinophils # (auto) 0 10 ^3/uL (0-0.8); Eosinophils % (auto) 0.3 % (0.0-7.0); Hematocrit 34.4 % (36.0-46.0); Hemoglobin 10.8 g/dL (12.2-16.2); Lymphocytes # (auto) 1.3 10 ^3/uL (0.4-5.4); Lymphocytes % (auto) 10.2 % (10.0-50.0); Mean Corpuscular Hgb Conc. 31.4 g/dL (32.0-36.0); Mean Corpuscular Volume 92.4 fL (80.0-100.0); Monocytes # (auto) 0.9 10 ^3/uL (0-1.3); Monocytes % (auto) 6.7 % (0.0-12.0); Neutrophils # (auto) 10.5 10 ^3/uL (1.6-8.6); Neutrophils % (auto) 82.4 % (37.0-80.0); Red Blood Cells 3.72 10^6/uL (4.0-5.20); Red Cell Distribution Width 15.3 % (11.8-14.3); White Blood Cell 12.8 10^3/uL (4.4-10.8)
[2022-08-06 23:14] LABS: Calcium 8.2 mg/dL (8.5-10.1); Magnesium 2.3 mg/dL (1.6-2.6); Potassium 4.8 mmol/L (3.5-5.1)
[2022-08-06 23:16] LABS: BUN/Creatinine Ratio 17.1
[2022-08-06 23:19] LABS: Bilirubin, Total 0.2 mg/dL (0.2-1.0); Total Protein 6.1 g/dL (6.4-8.2)
[2022-08-06] MEDS ORDERED: PIPERACILLIN-TAZOB 3.375GM 100 ML IV ONE (23:30)
[2022-08-07] VITALS (81 sets, daily range): BP systolic 96–156; BP diastolic 43–88
[2022-08-07] MEDS: MIDAZOLAM DRIP 50 mg/50mL 50 ML IV SCH ×3 (02:32→10:04)
[2022-08-07] MEDS ORDERED: cefTRIAXone 1GM/50ML D5W 50 ML IV ONE (02:45)
[2022-08-07] MEDS ORDERED: ONDANSETRON HCL 4 MG/2 ML VIAL IV PRN (02:45)
[2022-08-07] MEDS ORDERED: NITROGLYCERIN 0.4 MG SL TAB SL PRN (02:45)
[2022-08-07] MEDS ORDERED: DEXTROSE (50%) 50ML SYRG IV PRN (02:45)
[2022-08-07 03:08] LABS: Urine Bacteria MANY /hpf (None Seen); Urine Blood 1+ /uL (Negative); Urine Specific Gravity 1.014 (1.001-1.035); Urine WBC 483 /hpf (0 - 5); Urine WBC Clumps PRESENT /hpf (None Seen)
[2022-08-07] MEDS ORDERED: fentaNYL Drip 2500mCg/250mlNS 250 ML IV ONE (03:09)
[2022-08-07] MEDS: fentaNYL Drip 2500mCg/250mlNS 250 ML IV SCH (03:15)
[2022-08-07] MEDS: SODIUM CHLORIDE 0.9% 1,000 ML IV SCH ×2 (03:41→21:10)
[2022-08-07] MEDS: InsuLIN REG 1unit/0.01ml Soln (100units/ml) SC SCH ×3 (06:00→18:00)
[2022-08-07] MEDS: ACCU-CHEK COMFORT CURVE STRIP VI SCH ×3 (06:24→18:18)
[2022-08-07] MEDS: ACETAMINOPHEN 325 MG TAB PO PRN (06:29)
[2022-08-07 07:41] LABS: Basophils # (auto) 0 10 ^3/uL (0-0.2); Basophils % (auto) 0.4 % (0.0-2.0); Eosinophils # (auto) 0.1 10 ^3/uL (0-0.8); Eosinophils % (auto) 0.4 % (0.0-7.0); Hematocrit 30.5 % (36.0-46.0); Hemoglobin 9.8 g/dL (12.2-16.2); Lymphocytes # (auto) 2.8 10 ^3/uL (0.4-5.4); Lymphocytes % (auto) 23.1 % (10.0-50.0); Mean Corpuscular Hemoglobin 29.4 pg (28.0-32.0); Mean Corpuscular Hgb Conc. 32.1 g/dL (32.0-36.0); Mean Corpuscular Volume 91.5 fL (80.0-100.0); Monocytes # (auto) 1.7 10 ^3/uL (0-1.3); Monocytes % (auto) 13.5 % (0.0-12.0); Neutrophils # (auto) 7.7 10 ^3/uL (1.6-8.6); Neutrophils % (auto) 62.6 % (37.0-80.0); Nucleated Red Blood Cells % 0.1 %; Red Blood Cells 3.34 10^6/uL (4.0-5.20); Red Cell Distribution Width 15.5 % (11.8-14.3); White Blood Cell 12.2 10^3/uL (4.4-10.8)
[2022-08-07 07:51] LABS: INR 0.93 (0.9-1.15); Partial Thromboplastin Time 27.5 sec (24.6-33.4)
[2022-08-07 07:58] LABS: BUN/Creatinine Ratio 17.3; Calcium 8.4 mg/dL (8.5-10.1); Potassium 3.6 mmol/L (3.5-5.1)
[2022-08-07] MEDS: PANTOPRAZOLE 40 MG/10 ML VIAL INJ IV SCH (09:58)
[2022-08-07] MEDS: ENOXAPARIN SOD 30 MG/0.3 ML SYRINGE SC SCH (09:59)
[2022-08-07] MEDS ORDERED: LIDOCAINE 1% (LOCAL ANESTH.) PF 5ml SDV ID ONE (13:15)
[2022-08-07] MEDS ORDERED: methylPREDNISolone SOD SUCC 40 MG/ML VL IM ONE ×2 (15:15→15:45)
[2022-08-07] MEDS ORDERED: methylPREDNISolone SOD SUCC 40 MG/ML VL IV ONE (16:00)
[2022-08-07] MEDS: methylPREDNISolone SOD SUCC 40 MG/ML VL IV SCH (23:14)
[2022-08-07] MEDS: cefTRIAXone 1GM/50ML D5W 50 ML IV SCH (23:14)
[2022-08-07] MEDS: SODIUM CHLOR 0.9% PF (SALINE LOCK) 10ML VIAL/SYR IV SCH (23:14)
[2022-08-07] MEDS: ATORVASTATIN 20 MG TAB PO SCH (23:15)
[2022-08-08] VITALS (89 sets, daily range): BP systolic 111–181; BP diastolic 45–86
[2022-08-08] MEDS: fentaNYL Drip 2500mCg/250mlNS 250 ML IV SCH ×2 (03:15→20:43)
[2022-08-08 04:16] LABS: Basophils # (auto) 0 10 ^3/uL (0-0.2); Basophils % (auto) 0.3 % (0.0-2.0); Eosinophils # (auto) 0 10 ^3/uL (0-0.8); Hematocrit 28.3 % (36.0-46.0); Hemoglobin 9.5 g/dL (12.2-16.2); Lymphocytes % (auto) 12.5 % (10.0-50.0); Mean Corpuscular Hemoglobin 30.1 pg (28.0-32.0); Mean Corpuscular Hgb Conc. 33.6 g/dL (32.0-36.0); Mean Corpuscular Volume 89.7 fL (80.0-100.0); Monocytes # (auto) 0.1 10 ^3/uL (0-1.3); Monocytes % (auto) 0.9 % (0.0-12.0); Neutrophils # (auto) 7.2 10 ^3/uL (1.6-8.6); Neutrophils % (auto) 86.3 % (37.0-80.0); Nucleated Red Blood Cells % 0.1 %; Red Blood Cells 3.16 10^6/uL (4.0-5.20); Red Cell Distribution Width 15.9 % (11.8-14.3); White Blood Cell 8.3 10^3/uL (4.4-10.8)
[2022-08-08 04:44] LABS: Albumin 2.6 g/dL (3.4-5.0); Calcium 8.5 mg/dL (8.5-10.1); Potassium 4.2 mmol/L (3.5-5.1)
[2022-08-08 04:51] LABS: BUN/Creatinine Ratio 21.7; Bilirubin, Total 0.2 mg/dL (0.2-1.0)
[2022-08-08] MEDS: ACCU-CHEK COMFORT CURVE STRIP VI SCH ×5 (06:38→23:40)
[2022-08-08] MEDS: InsuLIN REG 1unit/0.01ml Soln (100units/ml) SC SCH ×5 (06:38→23:40)
[2022-08-08] MEDS: ALBUTEROL SULF 2.5 MG/0.5ML(0.5%) NEB SOLN NEB PRN (07:56)
[2022-08-08] MEDS: MIDAZOLAM DRIP 50 mg/50mL 50 ML IV SCH ×2 (09:23→23:58)
[2022-08-08] MEDS: METOPROLOL SUCCINATE XL 50 MG TAB PO SCH (10:00)
[2022-08-08] MEDS: ENOXAPARIN SOD 30 MG/0.3 ML SYRINGE SC SCH (10:21)
[2022-08-08] MEDS: PANTOPRAZOLE 40 MG/10 ML VIAL INJ IV SCH (10:22)
[2022-08-08] MEDS: methylPREDNISolone SOD SUCC 40 MG/ML VL IV SCH ×2 (10:22→21:45)
[2022-08-08] MEDS: SERTRALINE HCL 50 MG TAB NG SCH (10:23)
[2022-08-08] MEDS: amLODIPine BESYLATE 5 MG TAB PO SCH (10:23)
[2022-08-08] MEDS: SODIUM CHLOR 0.9% PF (SALINE LOCK) 10ML VIAL/SYR IV SCH ×2 (10:24→21:45)
[2022-08-08] MEDS ORDERED: IOHEXOL 300 MG/ML 100ML BOTTLE IJ ONE (14:28)
[2022-08-08] MEDS: SODIUM CHLORIDE 0.9% 1,000 ML IV SCH ×3 (16:31→17:54)
[2022-08-08] MEDS: cefTRIAXone 1GM/50ML D5W 50 ML IV SCH (21:45)
[2022-08-08] MEDS: ATORVASTATIN 20 MG TAB PO SCH (21:45)
[2022-08-09] VITALS (80 sets, daily range): BP systolic 134–183; BP diastolic 47–112
[2022-08-09 04:08] LABS: Basophils # (auto) 0.1 10 ^3/uL (0-0.2); Basophils % (auto) 0.7 % (0.0-2.0); Eosinophils # (auto) 0 10 ^3/uL (0-0.8); Hemoglobin 8.7 g/dL (12.2-16.2); Lymphocytes # (auto) 0.7 10 ^3/uL (0.4-5.4); Lymphocytes % (auto) 9.9 % (10.0-50.0); Mean Corpuscular Hemoglobin 29.7 pg (28.0-32.0); Mean Corpuscular Hgb Conc. 33.3 g/dL (32.0-36.0); Mean Corpuscular Volume 89.1 fL (80.0-100.0); Monocytes # (auto) 0.2 10 ^3/uL (0-1.3); Monocytes % (auto) 2.6 % (0.0-12.0); Neutrophils # (auto) 6.5 10 ^3/uL (1.6-8.6); Neutrophils % (auto) 86.8 % (37.0-80.0); Red Blood Cells 2.92 10^6/uL (4.0-5.20); Red Cell Distribution Width 15.9 % (11.8-14.3); White Blood Cell 7.5 10^3/uL (4.4-10.8)
[2022-08-09 04:34] LABS: Albumin 2.5 g/dL (3.4-5.0); BUN/Creatinine Ratio 26.5; Bilirubin, Total 0.2 mg/dL (0.2-1.0); Calcium 8.8 mg/dL (8.5-10.1); Magnesium 2.4 mg/dL (1.6-2.6); Total Protein 4.8 g/dL (6.4-8.2)
[2022-08-09] MEDS: ACCU-CHEK COMFORT CURVE STRIP VI SCH ×3 (05:58→17:50)
[2022-08-09] MEDS: InsuLIN REG 1unit/0.01ml Soln (100units/ml) SC SCH ×3 (05:58→18:03)
[2022-08-09] MEDS: MIDAZOLAM DRIP 50 mg/50mL 50 ML IV SCH ×2 (06:15→21:34)
[2022-08-09] MEDS: METOPROLOL SUCCINATE XL 50 MG TAB PO SCH (10:00)
[2022-08-09] MEDS: SERTRALINE HCL 50 MG TAB NG SCH (10:22)
[2022-08-09] MEDS: methylPREDNISolone SOD SUCC 40 MG/ML VL IV SCH ×2 (10:22→21:43)
[2022-08-09] MEDS: PANTOPRAZOLE 40 MG/10 ML VIAL INJ IV SCH (10:22)
[2022-08-09] MEDS: ENOXAPARIN SOD 30 MG/0.3 ML SYRINGE SC SCH (10:22)
[2022-08-09] MEDS: amLODIPine BESYLATE 5 MG TAB PO SCH (10:23)
[2022-08-09] MEDS: SODIUM CHLOR 0.9% PF (SALINE LOCK) 10ML VIAL/SYR IV SCH ×2 (10:39→22:00)
[2022-08-09] MEDS ORDERED: methylPREDNISolone SOD SUCC 40 MG/ML VL IV ONE (16:00)
[2022-08-09] MEDS: fentaNYL Drip 2500mCg/250mlNS 250 ML IV SCH (21:33)
[2022-08-09] MEDS: SODIUM CHLORIDE 0.9% 1,000 ML IV SCH (21:34)
[2022-08-09] MEDS: cefTRIAXone 1GM/50ML D5W 50 ML IV SCH (21:41)
[2022-08-09] MEDS: ATORVASTATIN 20 MG TAB PO SCH (21:45)
[2022-08-10] VITALS (92 sets, daily range): BP systolic 85–198; BP diastolic 24–108
[2022-08-10] MEDS: InsuLIN REG 1unit/0.01ml Soln (100units/ml) SC SCH ×5 (00:06→23:47)
[2022-08-10] MEDS: ACCU-CHEK COMFORT CURVE STRIP VI SCH ×5 (00:06→23:47)
[2022-08-10] MEDS: MIDAZOLAM DRIP 50 mg/50mL 50 ML IV SCH ×3 (01:20→21:51)
[2022-08-10] MEDS: hydrALAZINE HCL 20 MG/ML VL IV PRN (01:49)
[2022-08-10] MEDS: methylPREDNISolone SOD SUCC 40 MG/ML VL IV SCH ×3 (05:53→21:52)
[2022-08-10] MEDS: ENOXAPARIN SOD 30 MG/0.3 ML SYRINGE SC SCH (09:55)
[2022-08-10] MEDS: PANTOPRAZOLE 40 MG/10 ML VIAL INJ IV SCH (09:55)
[2022-08-10] MEDS: METOPROLOL SUCCINATE XL 50 MG TAB PO SCH (09:56)
[2022-08-10] MEDS: SODIUM CHLOR 0.9% PF (SALINE LOCK) 10ML VIAL/SYR IV SCH ×2 (09:56→21:52)
[2022-08-10] MEDS: amLODIPine BESYLATE 5 MG TAB PO SCH (09:56)
[2022-08-10] MEDS: SERTRALINE HCL 50 MG TAB NG SCH (09:56)
[2022-08-10] MEDS ORDERED: SODIUM BICARBONATE 8.4 % INJ 50ML VIAL IV ONE (11:00)
[2022-08-10] MEDS: fentaNYL Drip 2500mCg/250mlNS 250 ML IV SCH (21:04)
[2022-08-10] MEDS: cefTRIAXone 1GM/50ML D5W 50 ML IV SCH (21:51)
[2022-08-10] MEDS: ATORVASTATIN 20 MG TAB PO SCH (21:52)
[2022-08-11] VITALS (84 sets, daily range): BP systolic 115–188; BP diastolic 36–139
[2022-08-11] MEDS: SODIUM CHLORIDE 0.9% 1,000 ML IV SCH ×3 (01:44→21:23)
[2022-08-11 03:44] LABS: Basophils # (auto) 0 10 ^3/uL (0-0.2); Eosinophils # (auto) 0 10 ^3/uL (0-0.8); Hematocrit 27.6 % (36.0-46.0); Hemoglobin 9.2 g/dL (12.2-16.2); Lymphocytes % (auto) 11.3 % (10.0-50.0); Mean Corpuscular Hemoglobin 29.7 pg (28.0-32.0); Mean Corpuscular Hgb Conc. 33.2 g/dL (32.0-36.0); Mean Corpuscular Volume 89.4 fL (80.0-100.0); Monocytes # (auto) 0.3 10 ^3/uL (0-1.3); Monocytes % (auto) 3.1 % (0.0-12.0); Neutrophils # (auto) 7.5 10 ^3/uL (1.6-8.6); Neutrophils % (auto) 85.6 % (37.0-80.0); Red Blood Cells 3.09 10^6/uL (4.0-5.20); Red Cell Distribution Width 16.4 % (11.8-14.3); White Blood Cell 8.7 10^3/uL (4.4-10.8)
[2022-08-11 03:59] LABS: Chloride 118 mmol/L (98-107); Potassium 3.8 mmol/L (3.5-5.1); Sodium 151 mmol/L (136-145)
[2022-08-11 04:06] LABS: Alanine Aminotransferase 9 U/L (13-56); Albumin 2.5 g/dL (3.4-5.0); Anion Gap 11 (5-15); Aspartate Aminotransferase < 3 U/L (15-37); BUN/Creatinine Ratio 34.5; Blood Urea Nitrogen 57 mg/dL (7-18); Calcium 8.8 mg/dL (8.5-10.1); Carbon Dioxide 22 mmol/L (21-32); GFR African American 40 mL/min; GFR Non-African American 33 mL/min; Glucose 156 mg/dL (74-106)
[2022-08-11 04:08] LABS: Alkaline Phosphatase 66 U/L (45-117); Bilirubin, Total 0.2 mg/dL (0.2-1.0); Total Protein 4.9 g/dL (6.4-8.2)
[2022-08-11] MEDS: methylPREDNISolone SOD SUCC 40 MG/ML VL IV SCH ×3 (05:32→22:16)
[2022-08-11] MEDS: MIDAZOLAM DRIP 50 mg/50mL 50 ML IV SCH ×3 (05:33→23:28)
[2022-08-11] MEDS: InsuLIN REG 1unit/0.01ml Soln (100units/ml) SC SCH ×4 (05:41→23:31)
[2022-08-11] MEDS: ACCU-CHEK COMFORT CURVE STRIP VI SCH ×4 (05:47→23:31)
[2022-08-11] MEDS: hydrALAZINE HCL 20 MG/ML VL IV PRN ×4 (05:47→22:17)
[2022-08-11] MEDS: SERTRALINE HCL 50 MG TAB NG SCH (08:21)
[2022-08-11] MEDS: amLODIPine BESYLATE 5 MG TAB PO SCH ×2 (08:21→15:22)
[2022-08-11] MEDS: METOPROLOL SUCCINATE XL 50 MG TAB PO SCH (08:22)
[2022-08-11] MEDS: SODIUM CHLOR 0.9% PF (SALINE LOCK) 10ML VIAL/SYR IV SCH ×2 (10:44→22:17)
[2022-08-11] MEDS: ENOXAPARIN SOD 30 MG/0.3 ML SYRINGE SC SCH (10:51)
[2022-08-11] MEDS: PANTOPRAZOLE 40 MG/10 ML VIAL INJ IV SCH (10:51)
[2022-08-11] MEDS: ATORVASTATIN 20 MG TAB PO SCH (22:16)
[2022-08-11] MEDS: cefTRIAXone 1GM/50ML D5W 50 ML IV SCH (22:17)
[2022-08-12] VITALS (99 sets, daily range): BP systolic 117–185; BP diastolic 46–122
[2022-08-12] MEDS: fentaNYL Drip 2500mCg/250mlNS 250 ML IV SCH (01:54)
[2022-08-12] MEDS: MIDAZOLAM DRIP 50 mg/50mL 50 ML IV SCH ×3 (03:48→12:56)
[2022-08-12] MEDS: ACCU-CHEK COMFORT CURVE STRIP VI SCH ×3 (06:01→18:00)
[2022-08-12] MEDS: methylPREDNISolone SOD SUCC 40 MG/ML VL IV SCH ×3 (06:03→22:00)
[2022-08-12] MEDS: InsuLIN REG 1unit/0.01ml Soln (100units/ml) SC SCH ×3 (06:05→18:00)
[2022-08-12 08:26] LABS: Potassium 4.2 mmol/L (3.5-5.1)
[2022-08-12 08:33] LABS: Albumin 2.5 g/dL (3.4-5.0); Bilirubin, Total 0.4 mg/dL (0.2-1.0); Calcium 8.7 mg/dL (8.5-10.1)
[2022-08-12] MEDS: METOPROLOL SUCCINATE XL 50 MG TAB PO SCH (10:00)
[2022-08-12] MEDS: amLODIPine BESYLATE 5 MG TAB PO SCH (11:45)
[2022-08-12] MEDS: SODIUM CHLOR 0.9% PF (SALINE LOCK) 10ML VIAL/SYR IV SCH ×2 (11:54→22:00)
[2022-08-12] MEDS: SERTRALINE HCL 50 MG TAB NG SCH (11:54)
[2022-08-12] MEDS: PANTOPRAZOLE 40 MG/10 ML VIAL INJ IV SCH (11:54)
[2022-08-12] MEDS: ENOXAPARIN SOD 30 MG/0.3 ML SYRINGE SC SCH (11:55)
[2022-08-12] MEDS ORDERED: ERTAPENEM SOD INJ 1 GM in SODIUM CHL 0.9% 50 ML IV ONE (12:15)
[2022-08-12] MEDS: hydrALAZINE HCL 20 MG/ML VL IV PRN ×2 (12:55→20:51)
[2022-08-12] MEDS: ATORVASTATIN 20 MG TAB PO SCH (22:00)
[2022-08-13] VITALS (107 sets, daily range): BP systolic 111–204; BP diastolic 43–77
[2022-08-13] MEDS: MIDAZOLAM DRIP 50 mg/50mL 50 ML IV SCH ×2 (00:28→22:45)
[2022-08-13] MEDS: hydrALAZINE HCL 20 MG/ML VL IV PRN ×2 (02:59→07:43)
[2022-08-13] MEDS: fentaNYL Drip 2500mCg/250mlNS 250 ML IV SCH (03:15)
[2022-08-13 04:35] LABS: Basophils # (auto) 0 10 ^3/uL (0-0.2); Eosinophils # (auto) 0 10 ^3/uL (0-0.8); Hematocrit 31.7 % (36.0-46.0); Hemoglobin 10.3 g/dL (12.2-16.2); Lymphocytes % (auto) 10.7 % (10.0-50.0); Mean Corpuscular Hemoglobin 29.1 pg (28.0-32.0); Mean Corpuscular Hgb Conc. 32.4 g/dL (32.0-36.0); Mean Corpuscular Volume 89.8 fL (80.0-100.0); Monocytes # (auto) 0.3 10 ^3/uL (0-1.3); Monocytes % (auto) 2.6 % (0.0-12.0); Neutrophils # (auto) 8.4 10 ^3/uL (1.6-8.6); Neutrophils % (auto) 86.7 % (37.0-80.0); Red Blood Cells 3.53 10^6/uL (4.0-5.20); Red Cell Distribution Width 16.8 % (11.8-14.3); White Blood Cell 9.7 10^3/uL (4.4-10.8)
[2022-08-13 04:55] LABS: Potassium 4.1 mmol/L (3.5-5.1)
[2022-08-13 05:04] LABS: Albumin 2.6 g/dL (3.4-5.0); BUN/Creatinine Ratio 33.3; Bilirubin, Total 0.2 mg/dL (0.2-1.0); Magnesium 2.4 mg/dL (1.6-2.6)
[2022-08-13] MEDS: InsuLIN REG 1unit/0.01ml Soln (100units/ml) SC SCH ×4 (06:00→17:40)
[2022-08-13] MEDS: methylPREDNISolone SOD SUCC 40 MG/ML VL IV SCH ×3 (06:00→21:52)
[2022-08-13] MEDS: ACCU-CHEK COMFORT CURVE STRIP VI SCH ×4 (06:00→17:40)
[2022-08-13] MEDS ORDERED: cloNIDine HCL 0.1 MG TAB PO ONE (06:30)
[2022-08-13] MEDS: amLODIPine BESYLATE 5 MG TAB PO SCH (08:27)
[2022-08-13] MEDS ORDERED: ERTAPENEM SOD INJ 1 GM in SODIUM CHL 0.9% 50 ML IV SCH (10:00)
[2022-08-13] MEDS: METOPROLOL SUCCINATE XL 50 MG TAB PO SCH (10:00)
[2022-08-13] MEDS ORDERED: MEROPENEM 2 GM in SODIUM CHL 0.9% 250 ML IV SCH (10:00)
[2022-08-13] MEDS: MEROPENEM 1GM IVPB 100 ML IV SCH ×2 (10:09→21:53)
[2022-08-13] MEDS: PANTOPRAZOLE 40 MG/10 ML VIAL INJ IV SCH (10:09)
[2022-08-13] MEDS: ENOXAPARIN SOD 30 MG/0.3 ML SYRINGE SC SCH (10:10)
[2022-08-13] MEDS: SERTRALINE HCL 50 MG TAB NG SCH (10:10)
[2022-08-13] MEDS: SODIUM CHLOR 0.9% PF (SALINE LOCK) 10ML VIAL/SYR IV SCH ×2 (10:16→22:02)
[2022-08-13] MEDS: D5W 5% 1,000 ML IV SCH (16:02)
[2022-08-13] MEDS: ACETAMINOPHEN 325 MG TAB PO PRN (19:38)
[2022-08-13] MEDS: ATORVASTATIN 20 MG TAB PO SCH (21:52)
[2022-08-14] VITALS (61 sets, daily range): BP systolic 81–156; BP diastolic 44–83
[2022-08-14] MEDS: HYDROcodone-ACET 5/325MG TAB PO PRN ×3 (00:15→17:12)
[2022-08-14] MEDS: fentaNYL Drip 2500mCg/250mlNS 250 ML IV SCH (03:15)
[2022-08-14 04:36] LABS: Basophils # (auto) 0 10 ^3/uL (0-0.2); Eosinophils # (auto) 0 10 ^3/uL (0-0.8); Hematocrit 29.8 % (36.0-46.0); Hemoglobin 9.5 g/dL (12.2-16.2); Lymphocytes # (auto) 0.9 10 ^3/uL (0.4-5.4); Mean Corpuscular Volume 90.5 fL (80.0-100.0); Monocytes # (auto) 0.1 10 ^3/uL (0-1.3); Monocytes % (auto) 1.5 % (0.0-12.0); Neutrophils # (auto) 9.1 10 ^3/uL (1.6-8.6); Neutrophils % (auto) 89.5 % (37.0-80.0); Nucleated Red Blood Cells % 0.1 %; Red Blood Cells 3.29 10^6/uL (4.0-5.20); Red Cell Distribution Width 17.3 % (11.8-14.3); White Blood Cell 10.2 10^3/uL (4.4-10.8)
[2022-08-14 05:01] LABS: Albumin 2.2 g/dL (3.4-5.0); BUN/Creatinine Ratio 33.3; Bilirubin, Total 0.2 mg/dL (0.2-1.0); Magnesium 2.2 mg/dL (1.6-2.6); Potassium 3.2 mmol/L (3.5-5.1); Total Protein 4.6 g/dL (6.4-8.2)
[2022-08-14] MEDS: ALBUTEROL SULF 2.5 MG/0.5ML(0.5%) NEB SOLN NEB PRN ×2 (05:58→20:18)
[2022-08-14] MEDS: methylPREDNISolone SOD SUCC 40 MG/ML VL IV SCH ×3 (06:00→21:21)
[2022-08-14] MEDS: ACCU-CHEK COMFORT CURVE STRIP VI SCH ×4 (06:00→17:36)
[2022-08-14] MEDS: InsuLIN REG 1unit/0.01ml Soln (100units/ml) SC SCH ×4 (06:00→17:39)
[2022-08-14] MEDS ORDERED: DexmedeTOMIDine 2 ML IV ONE ×2 (07:41→07:43)
[2022-08-14] MEDS: D5W 5% 1,000 ML IV SCH ×2 (07:45→17:45)
[2022-08-14] MEDS: ACETAMINOPHEN 325 MG TAB PO PRN ×2 (09:20→11:32)
[2022-08-14] MEDS: SERTRALINE HCL 50 MG TAB NG SCH (09:35)
[2022-08-14] MEDS: METOPROLOL SUCCINATE XL 50 MG TAB PO SCH (09:35)
[2022-08-14] MEDS: PANTOPRAZOLE 40 MG/10 ML VIAL INJ IV SCH (09:35)
[2022-08-14] MEDS: ENOXAPARIN SOD 30 MG/0.3 ML SYRINGE SC SCH (09:35)
[2022-08-14] MEDS: MEROPENEM 1GM IVPB 100 ML IV SCH ×2 (09:37→21:22)
[2022-08-14] MEDS: SODIUM CHLOR 0.9% PF (SALINE LOCK) 10ML VIAL/SYR IV SCH ×2 (09:46→21:24)
[2022-08-14] MEDS: amLODIPine BESYLATE 5 MG TAB PO SCH (10:00)
[2022-08-14] MEDS: POTASSIUM CHL 20MEQ/100ML 100 ML IV SCH ×2 (11:43→13:41)
[2022-08-14] MEDS: MORPHINE SULFATE INJ 2 MG/ml SYRG IV PRN ×2 (13:57→21:23)
[2022-08-14] MEDS: ATORVASTATIN 20 MG TAB PO SCH (21:23)
[2022-08-15] VITALS (23 sets, daily range): BP systolic 134–188; BP diastolic 59–116
[2022-08-15] MEDS: ACCU-CHEK COMFORT CURVE STRIP VI SCH ×5 (00:20→23:36)
[2022-08-15] MEDS: InsuLIN REG 1unit/0.01ml Soln (100units/ml) SC SCH ×5 (00:21→23:39)
[2022-08-15 04:10] LABS: Basophils # (auto) 0.1 10 ^3/uL (0-0.2); Basophils % (auto) 0.7 % (0.0-2.0); Eosinophils # (auto) 0 10 ^3/uL (0-0.8); Eosinophils % (auto) 0.1 % (0.0-7.0); Hematocrit 31.3 % (36.0-46.0); Hemoglobin 10.2 g/dL (12.2-16.2); Lymphocytes # (auto) 0.8 10 ^3/uL (0.4-5.4); Lymphocytes % (auto) 5.3 % (10.0-50.0); Mean Corpuscular Hemoglobin 29.4 pg (28.0-32.0); Mean Corpuscular Hgb Conc. 32.6 g/dL (32.0-36.0); Mean Corpuscular Volume 90.2 fL (80.0-100.0); Monocytes # (auto) 0.4 10 ^3/uL (0-1.3); Monocytes % (auto) 2.9 % (0.0-12.0); Neutrophils # (auto) 13.6 10 ^3/uL (1.6-8.6); Red Blood Cells 3.47 10^6/uL (4.0-5.20); Red Cell Distribution Width 16.4 % (11.8-14.3)
[2022-08-15 04:37] LABS: Potassium 4.3 mmol/L (3.5-5.1)
[2022-08-15 04:43] LABS: Albumin 2.7 g/dL (3.4-5.0); BUN/Creatinine Ratio 27.4; Bilirubin, Total 0.3 mg/dL (0.2-1.0); Calcium 8.8 mg/dL (8.5-10.1); Magnesium 2.1 mg/dL (1.6-2.6); Total Protein 4.8 g/dL (6.4-8.2)
[2022-08-15] MEDS: methylPREDNISolone SOD SUCC 40 MG/ML VL IV SCH ×3 (06:05→21:54)
[2022-08-15] MEDS: MORPHINE SULFATE INJ 2 MG/ml SYRG IV PRN ×5 (06:07→22:14)
[2022-08-15] MEDS: PANTOPRAZOLE 40 MG/10 ML VIAL INJ IV SCH (10:23)
[2022-08-15] MEDS: MEROPENEM 1GM IVPB 100 ML IV SCH ×2 (10:23→21:54)
[2022-08-15] MEDS: SERTRALINE HCL 50 MG TAB NG SCH (10:25)
[2022-08-15] MEDS: amLODIPine BESYLATE 5 MG TAB PO SCH (10:25)
[2022-08-15] MEDS: METOPROLOL SUCCINATE XL 50 MG TAB PO SCH (10:25)
[2022-08-15] MEDS: ENOXAPARIN SOD 30 MG/0.3 ML SYRINGE SC SCH (10:26)
[2022-08-15] MEDS: SODIUM CHLOR 0.9% PF (SALINE LOCK) 10ML VIAL/SYR IV SCH ×2 (10:49→21:54)
[2022-08-15] MEDS: hydrALAZINE HCL 20 MG/ML VL IV PRN ×3 (11:07→22:14)
[2022-08-15] MEDS ORDERED: traMADol HCL 50 MG TAB PO PRN (16:45)
[2022-08-15] MEDS: ATORVASTATIN 20 MG TAB PO SCH (21:55)
[2022-08-15] MEDS: DOCUSATE SOD 100 MG CAP PO SCH (21:56)
[2022-08-16 02:09] VITALS: BP 139/69
[2022-08-16] MEDS: MORPHINE SULFATE INJ 2 MG/ml SYRG IV PRN ×4 (04:08→19:55)
[2022-08-16] MEDS: hydrALAZINE HCL 20 MG/ML VL IV PRN ×3 (04:09→20:10)
[2022-08-16 05:33] LABS: Basophils # (auto) 0.1 10 ^3/uL (0-0.2); Basophils % (auto) 0.5 % (0.0-2.0); Eosinophils # (auto) 0 10 ^3/uL (0-0.8); Hematocrit 36.9 % (36.0-46.0); Hemoglobin 11.6 g/dL (12.2-16.2); Lymphocytes # (auto) 1.3 10 ^3/uL (0.4-5.4); Lymphocytes % (auto) 8.2 % (10.0-50.0); Mean Corpuscular Hemoglobin 28.3 pg (28.0-32.0); Mean Corpuscular Hgb Conc. 31.4 g/dL (32.0-36.0); Mean Corpuscular Volume 90.1 fL (80.0-100.0); Monocytes # (auto) 0.6 10 ^3/uL (0-1.3); Monocytes % (auto) 3.7 % (0.0-12.0); Neutrophils # (auto) 13.4 10 ^3/uL (1.6-8.6); Neutrophils % (auto) 87.6 % (37.0-80.0); Red Cell Distribution Width 16.2 % (11.8-14.3); White Blood Cell 15.3 10^3/uL (4.4-10.8)
[2022-08-16] MEDS: methylPREDNISolone SOD SUCC 40 MG/ML VL IV SCH (05:35)
[2022-08-16] MEDS: MEROPENEM 1GM IVPB 100 ML IV SCH ×3 (05:35→21:21)
[2022-08-16 05:56] VITALS: BP 118/78
[2022-08-16 06:00] LABS: Albumin 2.6 g/dL (3.4-5.0); Calcium 8.6 mg/dL (8.5-10.1); Magnesium 2.2 mg/dL (1.6-2.6); Potassium 4.7 mmol/L (3.5-5.1)
[2022-08-16 06:05] LABS: BUN/Creatinine Ratio 28.8; Bilirubin, Total 0.3 mg/dL (0.2-1.0); Total Protein 5.1 g/dL (6.4-8.2)
[2022-08-16] MEDS: ACCU-CHEK COMFORT CURVE STRIP VI SCH ×4 (06:24→23:34)
[2022-08-16] MEDS: InsuLIN REG 1unit/0.01ml Soln (100units/ml) SC SCH ×4 (06:36→23:35)
[2022-08-16 09:06] VITALS: BP 184/70
[2022-08-16] MEDS: SERTRALINE HCL 50 MG TAB NG SCH (09:24)
[2022-08-16] MEDS: HYDROcodone-ACET 5/325MG TAB PO PRN ×2 (09:25→18:36)
[2022-08-16] MEDS: SODIUM CHLOR 0.9% PF (SALINE LOCK) 10ML VIAL/SYR IV SCH ×2 (09:25→21:18)
[2022-08-16] MEDS: DOCUSATE SOD 100 MG CAP PO SCH ×2 (09:25→21:19)
[2022-08-16] MEDS: PANTOPRAZOLE 40 MG/10 ML VIAL INJ IV SCH (09:25)
[2022-08-16] MEDS: amLODIPine BESYLATE 5 MG TAB PO SCH (09:26)
[2022-08-16] MEDS: ENOXAPARIN SOD 40 MG/0.4 ML SYRINGE SC SCH (09:27)
[2022-08-16] MEDS: METOPROLOL SUCCINATE XL 50 MG TAB PO SCH (09:27)
[2022-08-16] MEDS: predniSONE 20 MG TAB PO SCH (11:06)
[2022-08-16 13:00] VITALS: BP 125/76
[2022-08-16 17:03] VITALS: BP 144/85
[2022-08-16] MEDS: ATORVASTATIN 20 MG TAB PO SCH (21:19)
[2022-08-16 22:00] VITALS: BP 128/71
[2022-08-17] MEDS: HYDROcodone-ACET 5/325MG TAB PO PRN (01:43)
[2022-08-17] MEDS: hydrALAZINE HCL 20 MG/ML VL IV PRN (04:36)
[2022-08-17] MEDS: MORPHINE SULFATE INJ 2 MG/ml SYRG IV PRN ×5 (04:38→23:29)
[2022-08-17 05:00] VITALS: BP 188/83
[2022-08-17 05:24] LABS: Basophils # (auto) 0 10 ^3/uL (0-0.2); Basophils % (auto) 0.1 % (0.0-2.0); Eosinophils # (auto) 0 10 ^3/uL (0-0.8); Eosinophils % (auto) 0.1 % (0.0-7.0); Hematocrit 37.9 % (36.0-46.0); Hemoglobin 12.1 g/dL (12.2-16.2); Lymphocytes # (auto) 3.5 10 ^3/uL (0.4-5.4); Lymphocytes % (auto) 21.4 % (10.0-50.0); Mean Corpuscular Hemoglobin 28.7 pg (28.0-32.0); Mean Corpuscular Hgb Conc. 32.1 g/dL (32.0-36.0); Mean Corpuscular Volume 89.4 fL (80.0-100.0); Monocytes # (auto) 1.6 10 ^3/uL (0-1.3); Monocytes % (auto) 9.7 % (0.0-12.0); Neutrophils # (auto) 11.2 10 ^3/uL (1.6-8.6); Neutrophils % (auto) 68.7 % (37.0-80.0); Nucleated Red Blood Cells % 0.1 %; Red Blood Cells 4.24 10^6/uL (4.0-5.20); Red Cell Distribution Width 15.8 % (11.8-14.3); White Blood Cell 16.3 10^3/uL (4.4-10.8)
[2022-08-17 05:37] LABS: Albumin 2.7 g/dL (3.4-5.0); Calcium 8.9 mg/dL (8.5-10.1); Magnesium 1.9 mg/dL (1.6-2.6); Potassium 4.3 mmol/L (3.5-5.1)
[2022-08-17 05:43] LABS: BUN/Creatinine Ratio 35.7; Bilirubin, Total 0.3 mg/dL (0.2-1.0); Total Protein 5.1 g/dL (6.4-8.2)
[2022-08-17] MEDS: MEROPENEM 1GM IVPB 100 ML IV SCH ×3 (05:49→19:44)
[2022-08-17] MEDS: ACCU-CHEK COMFORT CURVE STRIP VI SCH ×3 (05:50→18:51)
[2022-08-17] MEDS: InsuLIN REG 1unit/0.01ml Soln (100units/ml) SC SCH ×3 (05:50→18:55)
[2022-08-17 09:00] VITALS: BP 118/68
[2022-08-17] MEDS: predniSONE 20 MG TAB PO SCH (09:57)
[2022-08-17] MEDS: METOPROLOL SUCCINATE XL 50 MG TAB PO SCH (09:57)
[2022-08-17] MEDS: amLODIPine BESYLATE 5 MG TAB PO SCH (09:58)
[2022-08-17] MEDS: DOCUSATE SOD 100 MG CAP PO SCH ×2 (09:58→21:39)
[2022-08-17] MEDS: PANTOPRAZOLE 40 MG/10 ML VIAL INJ IV SCH (09:59)
[2022-08-17] MEDS: SERTRALINE HCL 50 MG TAB NG SCH (09:59)
[2022-08-17] MEDS: ENOXAPARIN SOD 40 MG/0.4 ML SYRINGE SC SCH (10:01)
[2022-08-17] MEDS: SODIUM CHLOR 0.9% PF (SALINE LOCK) 10ML VIAL/SYR IV SCH (12:36)
[2022-08-17 13:00] VITALS: BP 121/71
[2022-08-17] MEDS: ALBUTEROL SULF 2.5 MG/0.5ML(0.5%) NEB SOLN NEB PRN (16:58)
[2022-08-17 17:00] VITALS: BP 118/68
[2022-08-17] MEDS: FUROSEMIDE 40 MG/4 ML VIAL IV SCH (20:41)
[2022-08-17] MEDS: ATORVASTATIN 20 MG TAB PO SCH (21:39)
[2022-08-17] MEDS: traMADol HCL 50 MG TAB PO PRN (21:40)
[2022-08-18 02:00] VITALS: BP 131/80
[2022-08-18] MEDS: MORPHINE SULFATE INJ 2 MG/ml SYRG IV PRN ×2 (04:30→20:45)
[2022-08-18 05:13] VITALS: BP 120/84
[2022-08-18] MEDS: InsuLIN REG 1unit/0.01ml Soln (100units/ml) SC SCH ×5 (06:00→23:54)
[2022-08-18] MEDS: ACCU-CHEK COMFORT CURVE STRIP VI SCH ×5 (06:00→23:53)
[2022-08-18] MEDS: SODIUM CHLOR 0.9% PF (SALINE LOCK) 10ML VIAL/SYR IV SCH ×3 (07:34→22:27)
[2022-08-18] MEDS: MEROPENEM 1GM IVPB 100 ML IV SCH ×3 (07:36→22:22)
[2022-08-18 09:00] VITALS: BP 140/67
[2022-08-18] MEDS: predniSONE 20 MG TAB PO SCH (09:45)
[2022-08-18] MEDS: DOCUSATE SOD 100 MG CAP PO SCH ×2 (09:45→22:21)
[2022-08-18] MEDS: SERTRALINE HCL 50 MG TAB NG SCH (09:45)
[2022-08-18] MEDS: amLODIPine BESYLATE 5 MG TAB PO SCH (09:45)
[2022-08-18] MEDS: METOPROLOL SUCCINATE XL 50 MG TAB PO SCH (09:45)
[2022-08-18] MEDS: FUROSEMIDE 40 MG/4 ML VIAL IV SCH (09:46)
[2022-08-18] MEDS: PANTOPRAZOLE 40 MG/10 ML VIAL INJ IV SCH (09:46)
[2022-08-18] MEDS: ENOXAPARIN SOD 40 MG/0.4 ML SYRINGE SC SCH (09:47)
[2022-08-18 13:00] VITALS: BP 150/58
[2022-08-18] MEDS: ALBUTEROL SULF 2.5 MG/0.5ML(0.5%) NEB SOLN NEB PRN ×2 (14:57→20:16)
[2022-08-18 17:00] VITALS: BP 147/65
[2022-08-18] MEDS: ATORVASTATIN 20 MG TAB PO SCH (22:22)
[2022-08-18] MEDS: traMADol HCL 50 MG TAB PO PRN (22:24)
[2022-08-18 22:35] VITALS: BP 137/74
[2022-08-19] MEDS ORDERED: GAB100C PO (00:09)
[2022-08-19] MEDS: MORPHINE SULFATE INJ 2 MG/ml SYRG IV PRN ×5 (01:10→21:57)
[2022-08-19] MEDS ORDERED: GABAPENTIN 300 MG CAP PO ONE (05:15)
[2022-08-19 05:34] VITALS: BP 168/65
[2022-08-19] MEDS: InsuLIN REG 1unit/0.01ml Soln (100units/ml) SC SCH ×4 (05:56→23:26)
[2022-08-19] MEDS: ACCU-CHEK COMFORT CURVE STRIP VI SCH ×4 (05:56→23:24)
[2022-08-19] MEDS: MEROPENEM 1GM IVPB 100 ML IV SCH ×2 (05:56→14:26)
[2022-08-19 07:35] VITALS: BP 137/66
[2022-08-19] MEDS: ENOXAPARIN SOD 40 MG/0.4 ML SYRINGE SC SCH (09:43)
[2022-08-19] MEDS: PANTOPRAZOLE 40 MG/10 ML VIAL INJ IV SCH (09:43)
[2022-08-19] MEDS: predniSONE 20 MG TAB PO SCH (09:44)
[2022-08-19] MEDS: METOPROLOL SUCCINATE XL 50 MG TAB PO SCH (09:44)
[2022-08-19] MEDS: FUROSEMIDE 40 MG/4 ML VIAL IV SCH (09:44)
[2022-08-19] MEDS: SERTRALINE HCL 50 MG TAB NG SCH (09:44)
[2022-08-19] MEDS: GABAPENTIN 300 MG CAP PO SCH (09:45)
[2022-08-19] MEDS: amLODIPine BESYLATE 5 MG TAB PO SCH (09:45)
[2022-08-19] MEDS: DOCUSATE SOD 100 MG CAP PO SCH ×2 (09:45→21:47)
[2022-08-19] MEDS: SODIUM CHLOR 0.9% PF (SALINE LOCK) 10ML VIAL/SYR IV SCH ×2 (09:46→21:47)
[2022-08-19 12:32] VITALS: BP 118/67
[2022-08-19] MEDS: HYDROcodone-ACET 5/325MG TAB PO PRN (14:28)
[2022-08-19 16:19] VITALS: BP 148/72
[2022-08-19 16:45] VITALS: BP 150/65
[2022-08-19] MEDS: ALBUTEROL SULF 2.5 MG/0.5ML(0.5%) NEB SOLN NEB PRN (19:51)
[2022-08-19] MEDS: ATORVASTATIN 20 MG TAB PO SCH (21:47)
[2022-08-19 22:00] VITALS: BP 141/62
[2022-08-20 05:00] VITALS: BP 158/55
[2022-08-20] MEDS: MORPHINE SULFATE INJ 2 MG/ml SYRG IV PRN (05:30)
[2022-08-20] MEDS: InsuLIN REG 1unit/0.01ml Soln (100units/ml) SC SCH ×2 (05:39→11:58)
[2022-08-20] MEDS: ACCU-CHEK COMFORT CURVE STRIP VI SCH ×2 (05:39→11:30)
[2022-08-20] MEDS: ALBUTEROL SULF 2.5 MG/0.5ML(0.5%) NEB SOLN NEB PRN (07:27)
[2022-08-20 09:00] VITALS: BP 132/66
[2022-08-20] MEDS: amLODIPine BESYLATE 5 MG TAB PO SCH (09:51)
[2022-08-20] MEDS: METOPROLOL SUCCINATE XL 50 MG TAB PO SCH (09:51)
[2022-08-20] MEDS: DOCUSATE SOD 100 MG CAP PO SCH (09:51)
[2022-08-20] MEDS: SERTRALINE HCL 50 MG TAB NG SCH (09:52)
[2022-08-20] MEDS: HYDROcodone-ACET 5/325MG TAB PO PRN (09:52)
[2022-08-20] MEDS: GABAPENTIN 300 MG CAP PO SCH (09:52)
[2022-08-20] MEDS: predniSONE 20 MG TAB PO SCH (09:52)
[2022-08-20] MEDS: PANTOPRAZOLE 40 MG/10 ML VIAL INJ IV SCH (09:53)
[2022-08-20] MEDS: FUROSEMIDE 40 MG/4 ML VIAL IV SCH (09:53)
[2022-08-20] MEDS: SODIUM CHLOR 0.9% PF (SALINE LOCK) 10ML VIAL/SYR IV SCH (09:53)
[2022-08-20] MEDS: ENOXAPARIN SOD 40 MG/0.4 ML SYRINGE SC SCH (09:53)
[2022-08-20] MEDS ORDERED: PRED20TA2 PO (11:15)
[2022-08-20] MEDS ORDERED: AML5T PO (11:15)
[2022-08-20 12:57] VITALS: BP 155/66
[2022-08-20 16:38] VITALS: BP 127/57
== END 2022-08-20 16:17 | disposition home health service (06) | DRG 870 ==
LOC: ER 21:12 → EDBD 21:12 → EDUNIT# 08-07 02:42 → TELE 08-07 02:42 → ICU WEST 08-07 04:14 → TELE-CENTR 08-15 18:54
PROVIDERS: ADMIT Nurse Practitioner; ATTEND Internal Medicine
PROC: 5A1955Z Respiratory Ventilation, Greater than 96 Consecutive Hours (ICD-10-PCS; principal; 2022-08-07)
PROC: 0BH17EZ Insertion of Endotracheal Airway into Trachea, Via Natural or Artificial Opening (ICD-10-PCS; 2022-08-07)
PROC: 02HV33Z Insertion of Infusion Device into Superior Vena Cava, Percutaneous Approach (ICD-10-PCS; 2022-08-07)
PROC: 5A09357 Assistance with Respiratory Ventilation, Less than 24 Consecutive Hours, Continuous Positive Airway Pressure (ICD-10-PCS; 2022-08-14)
PROC: 5A09357 Assistance with Respiratory Ventilation, Less than 24 Consecutive Hours, Continuous Positive Airway Pressure (ICD-10-PCS; 2022-08-15)
PROC: 5A09357 Assistance with Respiratory Ventilation, Less than 24 Consecutive Hours, Continuous Positive Airway Pressure (ICD-10-PCS; 2022-08-16)
PROC: 5A09357 Assistance with Respiratory Ventilation, Less than 24 Consecutive Hours, Continuous Positive Airway Pressure (ICD-10-PCS; 2022-08-18)
DX: A41.9 Sepsis, unspecified organism (principal); I21.4 Non-ST elevation (NSTEMI) myocardial infarction; G93.41 Metabolic encephalopathy; J96.21 Acute and chronic respiratory failure with hypoxia; N17.0 Acute kidney failure with tubular necrosis; J15.0 Pneumonia due to Klebsiella pneumoniae; J96.22 Acute and chronic respiratory failure with hypercapnia; J44.1 Chronic obstructive pulmonary disease with (acute) exacerbation; I16.1 Hypertensive emergency; E87.0 Hyperosmolality and hypernatremia; I50.32 Chronic diastolic (congestive) heart failure; I13.0 Hypertensive heart and chronic kidney disease with heart failure and stage 1 through stage 4 chronic kidney disease, or unspecified chronic kidney disease; J44.0 Chronic obstructive pulmonary disease with (acute) lower respiratory infection; Z16.12 Extended spectrum beta lactamase (ESBL) resistance; N12 Tubulo-interstitial nephritis, not specified as acute or chronic; E44.1 Mild protein-calorie malnutrition; Z20.822 Contact with and (suspected) exposure to COVID-19; N18.9 Chronic kidney disease, unspecified; E11.22 Type 2 diabetes mellitus with diabetic chronic kidney disease; E11.65 Type 2 diabetes mellitus with hyperglycemia; K57.30 Diverticulosis of large intestine without perforation or abscess without bleeding; E78.5 Hyperlipidemia, unspecified; F17.200 Nicotine dependence, unspecified, uncomplicated; G47.33 Obstructive sleep apnea (adult) (pediatric); I25.10 Atherosclerotic heart disease of native coronary artery without angina pectoris; I27.21 Secondary pulmonary arterial hypertension; R56.9 Unspecified convulsions; Z79.899 Other long term (current) drug therapy; Z79.84 Long term (current) use of oral hypoglycemic drugs; Z80.0 Family history of malignant neoplasm of digestive organs; Z83.3 Family history of diabetes mellitus; Z90.49 Acquired absence of other specified parts of digestive tract; Z68.25 Body mass index [BMI] 25.0-25.9, adult; Z88.8 Allergy status to other drugs, medicaments and biological substances
CPT/HCPCS: 36415; 36569; 36600; 70450; 71045; 71250; 72125; 74176; 80048; 80053; 81001; 82805; 82962; 83605; 83690; 83735; 83880; 84484; 85025; 85379; 85610; 85730; 87040; 87070; 87077; 87081; 87086; 87088; 87186; 87205; 93005; 93306; 94002; 94003; 94640; 94660; 96365; 96366; 96367; 96368; 96375; 96379; 97110; 97116; 97163; 97530; 99291; C9113; G0378; J0330; J0696; J1335; J1815; J2185; J2250; J2405; J2543; J3480; J7042; J7060

== ENCOUNTER 2022-08-23 17:33 | Emergency (ER) | payer MEDICARE ==
[~2022-08-23] VITALS: Ht 160 cm; Wt 56.8 kg
[~2022-08-23 17:33] MED LIST changes: -ALBUAER3 IN; -AZIT500T66 PO; -BUDE1AER6 IN; +GAB100C PO
[2022-08-23] MEDS ORDERED: ALBUTEROL SULF 2.5 MG/0.5ML(0.5%) NEB SOLN NEB ONE (19:00)
[2022-08-23] MEDS ORDERED: IPRATROPIUM BROM 0.5 MG/2.5ML INH SOL NEB ONE (19:00)
[2022-08-23] MEDS ORDERED: predniSONE 20 MG TAB PO ONE (19:00)
[2022-08-23 19:40] LABS: Basophils # (auto) 0.1 10 ^3/uL (0-0.2); Basophils % (auto) 0.3 % (0.0-2.0); Eosinophils # (auto) 0.2 10 ^3/uL (0-0.8); Hematocrit 31.8 % (36.0-46.0); Hemoglobin 10.1 g/dL (12.2-16.2); Lymphocytes # (auto) 2.7 10 ^3/uL (0.4-5.4); Lymphocytes % (auto) 15.7 % (10.0-50.0); Mean Corpuscular Hemoglobin 29.3 pg (28.0-32.0); Mean Corpuscular Hgb Conc. 31.8 g/dL (32.0-36.0); Mean Corpuscular Volume 92.3 fL (80.0-100.0); Monocytes # (auto) 1.7 10 ^3/uL (0-1.3); Monocytes % (auto) 9.7 % (0.0-12.0); Neutrophils # (auto) 12.7 10 ^3/uL (1.6-8.6); Neutrophils % (auto) 73.3 % (37.0-80.0); Red Blood Cells 3.44 10^6/uL (4.0-5.20); Red Cell Distribution Width 15.6 % (11.8-14.3); White Blood Cell 17.4 10^3/uL (4.4-10.8)
[2022-08-23 19:55] LABS: Albumin 2.9 g/dL (3.4-5.0); Calcium 9.2 mg/dL (8.5-10.1); Potassium 5.1 mmol/L (3.5-5.1)
[2022-08-23 19:58] LABS: BUN/Creatinine Ratio 26.3; Bilirubin, Total 0.3 mg/dL (0.2-1.0); Total Protein 5.6 g/dL (6.4-8.2)
[2022-08-23 20:20] VITALS: BP 141/65
== END 2022-08-23 20:45 | disposition left against medical advice (07) ==
LOC: EDBD 17:33 → ER 17:33
DX: J44.1 Chronic obstructive pulmonary disease with (acute) exacerbation (principal); I11.0 Hypertensive heart disease with heart failure; I50.9 Heart failure, unspecified; E11.9 Type 2 diabetes mellitus without complications; E78.5 Hyperlipidemia, unspecified
CPT/HCPCS: 36415; 71045; 80053; 83880; 84484; 85025; 93005; 94640; 99285; J7644